=== PATIENT | male | born 1940 | race Caucasian/White ===

== ENCOUNTER → 2016-12-27 | Outpatient (CLI) | payer MEDICARE ==
--- NOTE | 2016-12-27 10:00 | CT ---
EXAMINATION TYPE: CT ChestAbdPelvis wo con DATE OF EXAM: 12/27/2016 9:11 AM COMPARISON: CT CAP January 18, 2012 HISTORY: f/u Renal CA, history of right-sided nephrectomy. CT DLP: 531.8 mGycm. Automated Exposure Control for Dose Reduction was Utilized. CONTRAST: CT scan of the thorax, abdomen and pelvis is performed without and with IV Contrast, patient injected with 0 mL of Omnipaque 350. Exam is performed with oral but without IV contrast. AMX erases my report if I edit above. FINDINGS: Within the limitations of a noncontrast study, the following observations are made. LUNGS: Mild underlying emphysematous change is present. There is linear scarring laterally in the lef t midlung. There is additional linear scarring medially in the right mid to lower lung anterior aspec t. No concerning new parenchymal nodule or mass is present bilaterally. No pleural effusion or pneumo thorax is seen. Tracheobronchial tree is patent. MEDIASTINUM: There are new enlarged thoracic lymph nodes. For reference superior mediastinal lymph n ode near brachiocephalic confluence measures 2.5 x 1.8 cm on axial image 10. For reference right para tracheal lymph node measures 3.9 x 2.8 cm on axial image 16. There is enlarged adjacent lymph nodes s een inferior medial and anterior to this. No cardiomegaly or pericardial effusion is seen. Three-vessel coronary artery calcification and/or c oronary stents is present. OTHER: No additional significant abnormality is seen. LIVER/GB: Cholecystectomy clips are redemonstrated PANCREAS: No significant abnormality is seen. SPLEEN: No significant abnormality is seen. ADRENALS: No significant abnormality is seen. Normal-appearing right adrenal gland remains present. KIDNEYS: Right kidney is now surgically absent. Previously visualized adenopathy is absent. In left kidney there is 4.8 x 3.1 cm oval low dense lesion with Hounsfield units averaging 9 mid pole level felt to reflect simple cyst slightly increased in size from prior study. Mild cortical thinnin g in left kidney is seen. No hydronephrosis is evident. There is minimal concentric wall thickening of the urinary bladder redemonstrated. BOWEL: Oral contrast reaches level of rectum. There is no suspicious small or large bowel dilatation seen. There is mild to moderate wall thickening involving the sigmoid colon most pronounced distally extending into the rectum, colitis at this level needs to BE considered. Incidental note is made of n ormal contrast-filled appendix. GENITAL ORGANS: Prostate gland is heterogeneous appearance and slightly enlarged in size bulging on b ladder base, clinical correlation for BPH is advised. Some central zone calcifications are noted. LYMPH NODES: No greater than 1cm abdominal or pelvic lymph nodes are appreciated. OSSEOUS STRUCTURES: There is spurring with disc space narrowing and sclerosis at L4-L5 level, posteri or spur disc complex is noted. There is moderate anterior spurring with sclerosis centered in the mid thoracic spine. OTHER: Moderate sized fat-containing inguinal hernias are present bilaterally. There is moderate to severe calcified atherosclerotic change of aorta and branch vessels. IMPRESSION: 1. New thoracic adenopathy worrisome for neoplastic recurrence. Further investigation with bronchosco py for sampling or PET CT is advised. 2. Possible mild distal colitis, consider infectious or inflammatory etiologies, clinical correlation advised.
== END | disposition home or self-care (01) ==
LOC: RADCTMAIN 07:56
PROVIDERS: ATTEND Internal Medicine Hematology & Oncology
DX: R59.0 Localized enlarged lymph nodes (principal); C64.9 Malignant neoplasm of unspecified kidney, except renal pelvis
CPT/HCPCS: 71250; 74176

== ENCOUNTER → 2017-04-26 | Outpatient (CLI) | payer MEDICARE ==
--- NOTE | 2017-04-26 08:53 | CT ---
EXAMINATION TYPE: CT ChestAbdPelvis wo con DATE OF EXAM: 04/26/2017 COMPARISON: Previous study dated 12/27/2016 HISTORY: Renal cell CA follow up CT DLP: 1555 mGycm Automated exposure control for dose reduction was used. TECHNIQUE: Helical acquisition through the abdomen and pelvis was obtained without oral or intravenou s contrast. The data was formatted in the axial, coronal and sagittal projections. FINDINGS: No pulmonary parenchymal lesions are seen. There is mild atelectasis within the apical post erior segment of the left upper lobe as well as the right middle lobe. Previous right paratracheal lymph node measured 2.9 x 2.7 cm now measures 4.9 x 3.5 cm. Additional pr etracheal lymph node or inferiorly previously measured 3.1 x 2.5 cm. Today it measures 4.5 x 3.8 cm. There is additional right paratracheal adenopathy which is similar in size to the previous examinatio n. There is no pleural or pericardial fluid. The heart is not enlarged. There is extensive coronary garcia ry calcification as well as other atheromatous calcification throughout the exam. Within the abdomen, the gallbladder is been removed. The liver and spleen appear normal. Both adrenal glands appear normal. There is been a previous right nephrectomy. The nephrectomy space appears clear disease. The low atte nuating lesion in the mid polar region of the left kidney appears slightly less apparent on the previ ous exam and today measures 4.2 cm. Previously this measured 4.8 cm. The pancreas is unremarkable. There is no significant retrocrural, iliac or inguinal adenopathy. The bladder is somewhat thick-walled with wall measuring 6.6 mm. This may be partially due to lack of distention. The prostate is mildly enlarged and calcified. There are scattered diverticula along the left side of the colon. There is no radiographic evidence o f diverticulitis. The appendix is not visualized. Small bowel loops are normal. There is no free fluid and no free air identified. There is degenerative disc disease and hypertrophic spondylosis within the spine. There is mild facet arthropathy. There is no bony destructive lesion. IMPRESSION: 1. WORSENING MEDIASTINAL ADENOPATHY. 2. PROBABLE LEFT RENAL CYST. 3. MILD CARDIOMEGALY. 4. EXTENSIVE VASCULAR CALCIFICATION INCLUDING THE CORONARY ARTERIES. 5. STATUS POST RIGHT NEPHRECTOMY. 6. MINIMAL, UNCOMPLICATED DIVERTICULOSIS OF THE LEFT SIDE OF THE COLON. 7. DEGENERATIVE CHANGES WITHIN THE SPINE.
== END | disposition home or self-care (01) ==
LOC: RADCTMAIN 08:11
PROVIDERS: ATTEND Internal Medicine Hematology & Oncology
DX: C64.1 Malignant neoplasm of right kidney, except renal pelvis (principal); K57.30 Diverticulosis of large intestine without perforation or abscess without bleeding; R59.0 Localized enlarged lymph nodes; I51.7 Cardiomegaly; I25.10 Atherosclerotic heart disease of native coronary artery without angina pectoris; Z90.5 Acquired absence of kidney
CPT/HCPCS: 71250; 74176

== ENCOUNTER → 2017-05-03 | Outpatient (CLI) | payer MEDICARE ==
[2017-05-03 09:25] LABS: Calcium 9.4 mg/dL (8.4-10.2); Potassium 4.8 mmol/L (3.5-5.1); Total Bilirubin 1.3 mg/dL (0.2-1.3); Total Protein 6.6 g/dL (6.3-8.2)
== END | disposition home or self-care (01) ==
LOC: LABWHC1 08:31
PROVIDERS: ATTEND Internal Medicine Interventional Cardiology
DX: E78.2 Mixed hyperlipidemia (principal)
CPT/HCPCS: 36415; 80053; 80061

== ENCOUNTER 2017-06-05 18:03 | Emergency (ER) | payer MEDICARE ==
[2017-06-05] MEDS ORDERED: TAMSULOSIN 0.4 MG CAP.ER.24H PO STA (18:27)
[2017-06-05 19:09] LABS: Appearance,Urine Clear (Clear); Bacteria,Urine Rare /hpf; Bilirubin,Urine Negative (Negative); Glucose,Urine (UA) Trace (Negative); Ketones,Urine Negative (Negative); Leukocyte Esterase,Urine Negative (Negative); Nitrite,Urine Negative (Negative); Particle Count 951; Protein,Urine Negative (Negative); RBC,Urine <1 /hpf (0-5); Specific Gravity,Urine 1.004 (1.001-1.035); UA Billing (MACRO vs. MICRO) MICRO; Urobilinogen,Urine <2.0 mg/dL (<2.0); WBC,Urine <1 /hpf (0-5)
--- NOTE | 2017-06-05 19:22 | ED ---
Male Urogenital HPI - General Chief complaint: Urogenital Stated complaint: Cannot Urinate Time Seen by Provider: 06/05/17 18:18 Source: patient, RN notes reviewed Mode of arrival: ambulatory Limitations: no limitations - History of Present Illness Initial comments: 76-year-old male presents emergency Department chief complaint unable to urinate. Patient states that he had EGD this morning. Patient states ever since he has not been able to urinate. He states that he only gets a few drops out. Patient states she's had this problem in the past in which he required a Mesa and some medications. Patient states does not take anything for BPH at this time. Denies any dysuria hematuria. Patient states he feels that he has to go and his lower abdomen feels distended. - Related Data Home Medications Medication Instructions Recorded Confirmed Atenolol [Tenormin] 25 mg PO BID 06/23/15 06/23/15 Lisinopril [Prinivil] 20 mg PO BID 06/23/15 06/23/15 Simvastatin [Zocor] 10 mg PO HS 06/23/15 06/23/15 Previous Rx's Medication Instructions Recorded Aspirin 325 mg PO DAILY tab 06/25/15 glipiZIDE [Glucotrol XL] 5 mg PO DAILY #30 tab 06/25/15 levETIRAcetam [Keppra] 500 mg PO Q12HR #60 tab 06/25/15 Tamsulosin [Flomax] 0.4 mg PO DAILY #7 cap 06/05/17 Allergies Allergy/AdvReac Type Severity Reaction Status Date / Time No Known Allergies Allergy Verified 06/05/17 19:15 Review of Systems ROS Statement: Those systems with pertinent positive or pertinent negative responses have been documented in the HPI. ROS Other: All systems not noted in ROS Statement are negative. Past Medical History Past Medical History: Chest Pain / Angina, Diabetes Mellitus, Hypertension Additional Past Medical History / Comment(s): 06/23/[address] [facility] ER via EMS with having confusion, some apasia and diaphoreis at home in the night. He also rolled out of bed. His spouse called EMS and in transport symptoms resolved. Other HX: Post hernia repair-pt states he had brain bleed and was transferred from [facility] to [facility]-he had to learn to perform all ADLs again-also had seizures for a short time after the brain bleed but none since 2012. 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-tx with R nephrectomy and chemo in 2012 at [facility], Stage II chronic kidney disease, hypertensive cardiovascular disease with LVH, diabetic neuropathy with low back and L leg pain, BPH, Last Myocardial Infarction Date:: 1999 History of Any Multi-Drug Resistant Organisms: None Reported Past Surgical History: Cholecystectomy, Coronary Bypass/CABG, Heart Catheterization With Stent Additional Past Surgical History / Comment(s): Kidney removed Past Anesthesia/Blood Transfusion Reactions: No Reported Reaction Date of Last Stent Placement:: 2005 Past Psychological History: No Psychological Hx Reported Smoking Status: Former smoker Past Alcohol Use History: None Reported Past Drug Use History: None Reported - Past Family History Father Family Medical History: Asthma, Coronary Artery Disease (CAD) Mother Family Medical History: CVA/TIA Additional Family Medical History / Comment(s): CVA X 2 General Exam Limitations: no limitations General appearance: alert, in no apparent distress Neck exam: Present: normal inspection, full ROM. Absent: tenderness, meningismus, lymphadenopathy Respiratory exam: Present: normal lung sounds bilaterally. Absent: respiratory distress, wheezes, rales, rhonchi, stridor Cardiovascular Exam: Present: regular rate, normal rhythm, normal heart sounds. Absent: systolic murmur, diastolic murmur, rubs, gallop, clicks GI/Abdominal exam: Present: soft, tenderness (Suprapubic), normal bowel sounds. Absent: distended, guarding, rebound, rigid Back exam: Absent: CVA tenderness (R), CVA tenderness (L) Neurological exam: Present: alert, oriented X3, CN II-XII intact Skin exam: Present: warm, dry, intact, normal color. Absent: rash Course Vital Signs 06/05/17 18:12 Temperature 97.7 F Pulse Rate 68 Respiratory 18 Rate Blood Pressure 177/79 O2 Sat by Pulse 97 Oximetry Medical Decision Making - Medical Decision Making 76-year-old male presents for urinary retention. Patient had a Mesa placed with no complications. Patient states that he feels relieved several 100 mLs urine on the Mesa bag. Urinalysis is a any signs of infection. Patient be discharged on Flomax. - Lab Data Lab Results 06/05/17 Range/Units 18:45 Urine Color Light Yellow Urine Appearance Clear (Clear) Urine pH 5.0 (5.0-8.0) Ur Specific [place] 1.004 (1.001-1.035) Urine Protein Negative (Negative) Urine Glucose (UA) Trace H (Negative) Urine Ketones Negative (Negative) Urine Blood Trace H (Negative) Urine Nitrite Negative (Negative) Urine Bilirubin Negative (Negative) Urine Urobilinogen <2.0 (<2.0) mg/dL Ur Leukocyte Esterase Negative (Negative) Urine RBC <1 (0-5) /hpf Urine WBC <1 (0-5) /hpf Urine Bacteria Rare H (None) /hpf Disposition Clinical Impression: Urinary retention Disposition: HOME SELF-CARE Condition: Stable Instructions: Urinary Retention in Men (ED) Additional Instructions: Please return to the Emergency Department if symptoms worsen or any other concerns. Prescriptions: Tamsulosin [Flomax] 0.4 mg PO DAILY #7 cap Referrals: Romie Dominguez MD [Primary Care Provider] - 1-2 days Time of Disposition: 19:22
[2017-06-05 19:37] VITALS: BP 148/79; PULSE 77; RESP 14; TEMP 97.3
== END 2017-06-05 19:37 | disposition home or self-care (01) ==
LOC: EC 18:03
DX: R33.9 Retention of urine, unspecified (principal); R14.0 Abdominal distension (gaseous); I10 Essential (primary) hypertension; Z87.891 Personal history of nicotine dependence; Z79.899 Other long term (current) drug therapy; Z86.79 Personal history of other diseases of the circulatory system
CPT/HCPCS: 51702; 81001; 87086; 99283

== ENCOUNTER 2017-06-09 22:24 | Observation (INO) | payer MEDICARE ==
--- NOTE | 2017-06-09 22:38 | ED ---
Chest Pain HPI - General Stated Complaint: chest & abdominal pain Time Seen by Provider: 06/09/17 22:36 Source: patient Limitations: no limitations - History of Present Illness Initial Comments: This patient is a 76-year-old man who presents to be evaluated for substernal and epigastric chest pain that has been going on since Sunday. The patient had a procedure on that day at another hospital, that he believes involves an endoscopy and possibly he was also intubated. He states that they were looking for cancer. The patient was seen here that day for urinary retention. He states that he has not had problem with this since being seen here, but that the chest and epigastric pain continued. He is not able to characterize it stating that it is just pain. It is constant, severe, and he has not found anything that makes the pain get better or worse. He denies having associated symptoms. MD Complaint: chest pain -: days(s) Pain Location: substernal, epigastric Pain Radiation: none Severity: severe Quality: other (It's just pain") Consistency: constant Improves With: nothing Worsens With: nothing Context: other (Recent procedure) Treatments Prior to Arrival: none - Related Data Home Medications Medication Instructions Recorded Confirmed Atenolol [Tenormin] 25 mg PO BID 06/23/15 06/23/15 Lisinopril [Prinivil] 20 mg PO BID 06/23/15 06/23/15 Simvastatin [Zocor] 10 mg PO HS 06/23/15 06/23/15 Previous Rx's Medication Instructions Recorded Aspirin 325 mg PO DAILY tab 06/25/15 glipiZIDE [Glucotrol XL] 5 mg PO DAILY #30 tab 06/25/15 levETIRAcetam [Keppra] 500 mg PO Q12HR #60 tab 06/25/15 Tamsulosin [Flomax] 0.4 mg PO DAILY #7 cap 06/05/17 Allergies Allergy/AdvReac Type Severity Reaction Status Date / Time No Known Allergies Allergy Verified 06/09/17 22:44 Review of Systems ROS Statement: Those systems with pertinent positive or pertinent negative responses have been documented in the HPI. ROS Other: All systems not noted in ROS Statement are negative. Constitutional: Denies: fever, chills, weakness Respiratory: Denies: cough, dyspnea, wheezes, hemoptysis Cardiovascular: Reports: as per HPI, chest pain. Denies: palpitations, orthopnea, edema, syncope Gastrointestinal: Reports: abdominal pain. Denies: nausea, vomiting, diarrhea, constipation, melena, hematochezia Genitourinary: Denies: dysuria, frequency, hematuria, discharge Musculoskeletal: Denies: back pain Skin: Denies: rash Neurological: Denies: headache, weakness, numbness EKG Findings - EKG Results: EKG: interpreted by EB INMAN, sinus rhythm (Rate 83 bpm), normal axis, normal QRS, normal ST/T, no acute changes - VA, Pacemaker, Normal: Normal tracing: normal tracing Past Medical History Past Medical History: Chest Pain / Angina, Diabetes Mellitus, Hypertension Additional Past Medical History / Comment(s): 06/23/15 Pt presented to [facility] ER via EMS with having confusion, some apasia and diaphoreis at home in the night. He also rolled out of bed. His spouse called EMS and in transport symptoms resolved. Other HX: Post hernia repair-pt states he had brain bleed and was transferred from [facility] to [facility]-he had to learn to perform all ADLs again-also had seizures for a short time after the brain bleed but none since 2012. 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-tx with R nephrectomy and chemo in 2011 at [facility], Stage II chronic kidney disease, hypertensive cardiovascular disease with LVH, diabetic neuropathy with low back and L leg pain, BPH, Last Myocardial Infarction Date:: 1999 History of Any Multi-Drug Resistant Organisms: None Reported Past Surgical History: Cholecystectomy, Coronary Bypass/CABG, Heart Catheterization With Stent Additional Past Surgical History / Comment(s): Kidney removed Past Anesthesia/Blood Transfusion Reactions: No Reported Reaction Date of Last Stent Placement:: 2005 Past Psychological History: No Psychological Hx Reported Smoking Status: Former smoker Past Alcohol Use History: None Reported Past Drug Use History: None Reported - Past Family History Father Family Medical History: Asthma, Coronary Artery Disease (CAD) Mother Family Medical History: CVA/TIA Additional Family Medical History / Comment(s): CVA X 2 General Exam General appearance: alert, in no apparent distress Head exam: Present: atraumatic, normocephalic Eye exam: Present: normal appearance. Absent: scleral icterus, conjunctival injection Neck exam: Present: normal inspection Respiratory exam: Present: normal lung sounds bilaterally. Absent: respiratory distress, wheezes, rales, rhonchi, stridor, chest wall tenderness Cardiovascular Exam: Present: regular rate, normal rhythm, normal heart sounds. Absent: systolic murmur, diastolic murmur, rubs, gallop GI/Abdominal exam: Present: soft. Absent: distended, tenderness, guarding, rebound, mass, pulsatile mass, hernia Extremities exam: Present: normal inspection, normal capillary refill. Absent: pedal edema, calf tenderness Back exam: Present: normal inspection. Absent: CVA tenderness (R), CVA tenderness (L) Neurological exam: Present: alert Skin exam: Present: warm, dry, intact, normal color. Absent: rash Course Vital Signs 06/09/17 06/09/17 06/09/17 22:45 22:48 23:31 Temperature 101.3 F H 100.9 F H Pulse Rate 87 78 Pulse Rate [ 78 Lost And Found Clerk ] Respiratory 18 18 Rate Blood Pressure 168/78 152/75 O2 Sat by Pulse 97 97 Oximetry - Reevaluation(s) Reevaluation #1: 06/10/17 00:47 Patient does have a minimally elevated d-dimer, which is negative by the age adjusted criteria. He does have risk factor and suspected malignancy however. Patient is therefore given dose of Lovenox. The patient's renal function is slightly elevated, and he'll be given fluid bolus, have the labs rechecked and hopefully be able to go for the CT of the chest to rule out PE. If his labs do not improve patient may require VQ scan in the a.m. Chest Pain MDM - MDM This patient is 76-year-old man presenting with atypical chest pain. Suspect that his pain is related to esophagitis or gastritis pain, but he was not able to recall recent stress test. We'll admit to observation for serial cardiac enzymes and telemetry monitoring. Disposition Referrals: Romie Dominguez MD [Primary Care Provider] - 1-2 days
[2017-06-09] MEDS ORDERED: MAG HYDROX/AL HYDROX/SIMETH 30 ML, HYOSCYAMINE ELIXIR 10 ML, CIMETIDINE HCL 300 MG, LID... PO STA ×4 (22:43)
[2017-06-09] MEDS ORDERED: ACETAMINOPHEN TAB 325 MG TAB PO STA ×2 (22:55→22:56)
[2017-06-09 23:03] LABS: Basophils % (A) 0 %; CH 30.5; CHCM 34.2; Eosinophils # (A) 0.2 k/uL (0-0.7); Eosinophils % (A) 2 %; HCT 38.4 % (39.0-53.0); HDW 2.94; HGB 13.5 gm/dL (13.0-17.5); Luc # (Auto) 0.15; Luc % (Auto) 2; Lymphocytes % (A) 12 %; MCH 31.4 pg (25.0-35.0); MCHC 35.1 g/dL (31.0-37.0); MCV 89.4 fL (80.0-100.0); Mean Platelet Volume 7.2; Monocytes # (A) 0.6 k/uL (0-1.0); Monocytes % (A) 7 %; Neutrophils # (A) 6.5 k/uL (1.3-7.7); Neutrophils % (A) 78 %; RBC 4.29 m/uL (4.30-5.90); RDW 13.6 % (11.5-15.5); WBC 8.4 k/uL (3.8-10.6); WBC (Perox) 8.32
[2017-06-09 23:11] LABS: Magnesium 1.8 mg/dL (1.6-2.3); Potassium 4.4 mmol/L (3.5-5.1); Total Bilirubin 1.9 mg/dL (0.2-1.3); Total Protein 5.8 g/dL (6.3-8.2)
[2017-06-09 23:23] LABS: INR 1.1 (<1.2)
[2017-06-09 23:24] LABS: Partial Thromboplastin Time 24.9 sec (22.0-30.0); Prothrombin Time 11.1 sec (9.0-12.0)
[2017-06-09 23:45] LABS: Appearance,Urine Clear (Clear); Bilirubin,Urine Negative (Negative); Glucose,Urine (UA) Negative (Negative); Ketones,Urine Negative (Negative); Leukocyte Esterase,Urine Negative (Negative); Nitrite,Urine Negative (Negative); Protein,Urine Negative (Negative); Specific Gravity,Urine 1.007 (1.001-1.035); UA Billing (MACRO vs. MICRO) CHEM; Urobilinogen,Urine <2.0 mg/dL (<2.0)
--- NOTE | 2017-06-09 23:47 | XR ---
EXAM: PA and lateral views of the chest INDICATION: 76 year-old male chest pain. COMPARISON: Chest x-ray 06/24/2015. FINDINGS: PA and lateral views of chest show interval development of a 7. 1 x 5.0 cm right paratracheal mass lesion, which is indeterminate. Aorta is tortuous. Heart is normal size. No pleural effusion, pneumothorax, or focal consolidation. Central pulmonary vasculature is within normal limits. Degenerative changes of the spine and both acromioclavicular joints. Upper abdominal surgical clips are present. IMPRESSION: 1. Interval development of a 7.1 x 5.0 cm right paratracheal mass lesion. This is indeterminate. Advise CT chest with contrast material to further evaluate. 2. Otherwise, no acute chest process.
[2017-06-10] MEDS ORDERED: NITROGLYCERIN SL TABS 0.4 MG TAB SUBLINGUAL PRN (00:42)
[2017-06-10] MEDS ORDERED: MORPHINE SULFATE 2 MG/ML SYRINGE IVP PRN (00:42)
[2017-06-10] MEDS ORDERED: SODIUM CHLORIDE 0.9% 1,000 ML IV SCH (00:45)
[2017-06-10] MEDS ORDERED: ENOXAPARIN 80 MG/0.8 ML SYRINGE SQ STA (00:47)
[2017-06-10] MEDS ORDERED: SODIUM CHLORIDE 0.9% 1,000 ML IV ONE (00:47)
[2017-06-10] MEDS: FAMOTIDINE 20 MG/2 ML VIAL IV SCH ×2 (01:32→09:54)
[2017-06-10 01:43] VITALS: BMI 27.3
[2017-06-10 02:06] VITALS: PULSE 74
[2017-06-10 05:20] LABS: Creatine Kinase 105 U/L (55-170)
[2017-06-10 05:33] LABS: Creatine Kinase MB 1.7 ng/mL (0.0-2.4); Troponin I <0.012 ng/mL (0.000-0.034)
[2017-06-10 07:04] LABS: Glucose,Whole Blood 162 mg/dL (75-99)
[2017-06-10] MEDS ORDERED: ATENOLOL 50 MG TAB PO SCH (09:15)
[2017-06-10] MEDS ORDERED: LISINOPRIL 20 MG TAB PO SCH (09:15)
[2017-06-10] MEDS ORDERED: ASPIRIN 81 MG CHEW PO SCH (09:15)
[2017-06-10] MEDS ORDERED: levETIRAcetam 500 MG TAB PO SCH (09:15)
[2017-06-10 11:28] LABS: Creatine Kinase 91 U/L (55-170)
[2017-06-10 11:41] LABS: Creatine Kinase MB 1.5 ng/mL (0.0-2.4); Troponin I <0.012 ng/mL (0.000-0.034)
--- NOTE | 2017-06-10 11:41 | CONS ---
This is a 76 year old with gentleman with history of CAD, type 2 diabetes, hypertension and history of intracranial bleed. This gentleman had a history of stenting performed in the past in 2005 and has recently as about a month ago , he had a Lexiscan stress test performed thru the office by Dr. Gardner who he sees. Stress test revealed good myocardial perfusion and function without ischemia. He has a history of lymphoma for which he had surgery and during the operation, the lymphoma was very close to the kidney and nephrectomy was eventually performed. Following the procedure, he had intracranial bleed that was treated conservatively. He now has significant sized lymphadenopathy in the mediastinum. About a week ago, he had a mediastinoscopy performed at [facility]. The details are unavailable. Biopsies apparently were taken per patient. However, he came in with chest pain mostly in the retrosternal area. The chest x-ray does not reveal any significant abnormalities. His troponins are normal. Quality of pain seems atypical. He is resting comfortably and symptoms have also resolved. I am recommending that given his normal stress test and lack of any EKG changes of significance or troponin elevation, he can be discharged and followed up as an outpatient with Dr. Gardner. More importantly, I have advised the patient to follow up with surgeon at [facility] for his lymphadenopathy. He sees Dr. Bowen in the outpatient setting. He is asymptomatic at the time of my evaluation. Past medical history: 1. CAD with history of PCI performed more than ten years ago with negative stress test one month ago. 2. Type 2 diabetes. 3. hypertension. 4. Hypercholesterolemia. Medications at home include: 1. Keppra. 2. Glucotrol. 3. Simvastatin. 4. Lisinopril. 5. Atenolol. 6. Aspirin. On physical examination, blood pressure is 144/70. Pulse rate is 70 per minute , regular. HEENT unremarkable. Fundus was not examined by me. Neck is supple. No JVD. I do not hear a carotid bruit. No thyromegaly. Heart exam reveals S1 , S2 heard normally without rub, murmur or gallop. Lungs are clear. Abdomen soft and nontender. Lower extremities revealed normal pulses. No edema. Central nervous system is normal. EKG revealed sinus mechanism. No acute changes. IMPRESSION: 1. Atypical chest pain. 2. Mediastinal lymphadenopathy. 3. Stable coronary artery disease with negative stress test one month ago. 4. Hypertension. 5. Hyperlipidemia. 6. Type 2 diabetes mellitus. RECOMMENDATIONS: I am recommending that we should continue his home medications. He can be discharged today and follow up with his primary physician. I have advised him to see Dr. Gardner in two weeks. I gave him the stress test results and he was placed. Discussed my thoughts in detail with the patient. Thank you very much for the consult. WENDY
[2017-06-10 11:46] VITALS: BP 159/81; RESP 18; TEMP 98.1
[2017-06-10 12:02] LABS: Glucose,Whole Blood 167 mg/dL (75-99)
--- NOTE | 2017-06-10 16:09 | P.HPIM ---
History of Present Illness H&P Date: 06/10/17 Chief Complaint: Chest pain Patient left the hospital AGAINST MEDICAL ADVICE even before I had a chance to see the patient. Past Medical History Past Medical History: Chest Pain / Angina, Diabetes Mellitus, Hyperlipidemia, Hypertension, Myocardial Infarction ([place]), Pneumonia, Prostate Disorder, Seizure Disorder Additional Past Medical History / Comment(s): 06/06/17 [facility] [place] looking for cancer. 06/23/15 Pt presented to [facility] ER via EMS with having confusion, some apasia and diaphoreis at home in the night. He also rolled out of bed. His spouse called EMS and in transport symptoms resolved. Other HX: Post hernia repair-pt states he had brain bleed and was transferred from [facility] to [facility]- he had to learn to perform all ADLs again-also had seizures for a short time after the brain bleed but none since 2011. 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-tx with R nephrectomy and chemo in 2011 at [facility], Stage II chronic kidney disease, hypertensive cardiovascular disease with LVH, diabetic neuropathy with low back and L leg pain, BPH, Last Myocardial Infarction Date:: 1999 History of Any Multi-Drug Resistant Organisms: None Reported Past Surgical History: Cholecystectomy, Coronary Bypass/CABG, Heart Catheterization With Stent, Hernia Repair Additional Past Surgical History / Comment(s): Kidney removed Past Anesthesia/Blood Transfusion Reactions: No Reported Reaction Date of Last Stent Placement:: 2005 Past Psychological History: No Psychological Hx Reported Additional Psychological History / Comment(s): Pt resides with his spouse. He is normally independent. He uses no assistive devices or home care. He drives a car. Smoking Status: Former smoker Past Alcohol Use History: None Reported Past Drug Use History: None Reported - Past Family History Father Family Medical History: Asthma, Coronary Artery Disease (CAD) Mother Family Medical History: CVA/TIA Additional Family Medical History / Comment(s): CVA X 2 Medications and Allergies Home Medications Medication Instructions Recorded Confirmed Type Atenolol [Tenormin] 50 mg PO BID 06/23/15 06/10/17 History Lisinopril [Prinivil] 20 mg PO BID 06/23/15 06/10/17 History Simvastatin [Zocor] 10 mg PO HS 07/29/15 07/16/17 History Aspirin 81 mg PO DAILY 06/10/17 06/10/17 History Allergies Allergy/AdvReac Type Severity Reaction Status Date / Time No Known Allergies Allergy Verified 06/10/17 07:19 Physical Exam Vitals: Vital Signs Temp Pulse Pulse Resp BP BP Pulse Ox 06/10/17 11:45 98.1 F 18 159/81 96 06/10/17 07:38 98.8 F 17 174/85 95 06/10/17 04:00 18 06/10/17 02:05 98.6 F 74 18 144/77 97 06/10/17 01:41 18 06/10/17 01:02 100.6 F H 88 18 144/68 97 06/09/17 23:31 100.9 F H 78 18 152/75 97 06/09/17 22:48 78 06/09/17 22:45 101.3 F H 87 18 168/78 97 Intake and Output 06/10/17 06/10/17 06/10/17 06:59 14:59 22:59 Intake Total 480 Balance 480 Intake: Oral 480 Other: Voiding Method Toilet # Voids 1 Weight 81.6 kg Results CBC & Chem 7: 06/09/17 22:45 06/09/17 22:45 Labs: Abnormal Lab Results - Last 24 Hours (Table) 06/09/17 06/09/17 06/09/17 Range/Units 22:45 22:45 22:45 RBC 4.29 L (4.30-5.90) m/uL Hct 38.4 L (39.0-53.0) % D-Dimer 0.74 H (<0.60) mg/L FEU Sodium 132 L (137-145) mmol/L Carbon Dioxide 21 L (22-30) mmol/L BUN 22 H (9-20) mg/dL Creatinine 1.60 H (0.66-1.25) mg/dL Glucose 188 H (74-99) mg/dL POC Glucose (mg/dL) (75-99) mg/dL Total Bilirubin 1.9 H (0.2-1.3) mg/dL Total Protein 5.8 L (6.3-8.2) g/dL Albumin 3.4 L (3.5-5.0) g/dL 06/10/17 06/10/17 Range/Units 07:00 11:59 RBC (4.30-5.90) m/uL Hct (39.0-53.0) % D-Dimer (<0.60) mg/L FEU Sodium (137-145) mmol/L Carbon Dioxide (22-30) mmol/L BUN (9-20) mg/dL Creatinine (0.66-1.25) mg/dL Glucose (74-99) mg/dL POC Glucose (mg/dL) 162 H 167 H (75-99) mg/dL Total Bilirubin (0.2-1.3) mg/dL Total Protein (6.3-8.2) g/dL Albumin (3.5-5.0) g/dL Microbiology - Last 24 Hours (Table) 06/09/17 23:25 Urine Culture - Preliminary Urine,Voided Thrombosis Risk Factor Assmnt - Choose All That Apply Each Risk Factor Represents 3 Points: Age 75 years or older Thrombosis Risk Factor Assessment Total Risk Factor Score: 3 Thrombosis Risk Factor Assessment Level: Moderate Risk
[2017-06-10] MEDS ORDERED: ATORVASTATIN 10 MG TAB PO SCH (21:00)
== END 2017-06-10 13:27 | disposition left against medical advice (07) ==
LOC: EC 22:24 → 3OBS 06-10 00:42
PROVIDERS: ADMIT Hospitalist; ATTEND Hospitalist
DX: R07.9 Chest pain, unspecified (principal); R59.0 Localized enlarged lymph nodes; I25.10 Atherosclerotic heart disease of native coronary artery without angina pectoris; I13.10 Hypertensive heart and chronic kidney disease without heart failure, with stage 1 through stage 4 chronic kidney disease, or unspecified chronic kidney disease; E78.5 Hyperlipidemia, unspecified; E11.40 Type 2 diabetes mellitus with diabetic neuropathy, unspecified; E11.22 Type 2 diabetes mellitus with diabetic chronic kidney disease; R10.13 Epigastric pain; N18.2 Chronic kidney disease, stage 2 (mild); E78.00 Pure hypercholesterolemia, unspecified; Z85.528 Personal history of other malignant neoplasm of kidney; N42.9 Disorder of prostate, unspecified; N40.1 Benign prostatic hyperplasia with lower urinary tract symptoms; R33.8 Other retention of urine; G40.909 Epilepsy, unspecified, not intractable, without status epilepticus; I25.2 Old myocardial infarction; Z79.82 Long term (current) use of aspirin; Z79.899 Other long term (current) drug therapy; Z79.84 Long term (current) use of oral hypoglycemic drugs; Z87.891 Personal history of nicotine dependence; Z95.1 Presence of aortocoronary bypass graft; Z95.5 Presence of coronary angioplasty implant and graft; Z82.49 Family history of ischemic heart disease and other diseases of the circulatory system; Z82.5 Family history of asthma and other chronic lower respiratory diseases; Z85.72 Personal history of non-Hodgkin lymphomas; Z90.5 Acquired absence of kidney; Z90.49 Acquired absence of other specified parts of digestive tract; Z92.21 Personal history of antineoplastic chemotherapy
CPT/HCPCS: 99285 ×2; 96372; 36415; 93005; 85379; 80053; 82150; 82550; 82553; 83605; 83690; 83735; 84484 ×2; 85025; 85610; 85730; 81003; 87040; 87086; 71020; G0378; J1650

== ENCOUNTER → 2017-10-11 | Outpatient (CLI) | payer MEDICARE ==
[2017-10-11 17:50] LABS: Calcium 9.7 mg/dL (8.4-10.2); Potassium 4.5 mmol/L (3.5-5.1)
== END | disposition home or self-care (01) ==
LOC: LABWHC1 16:44
PROVIDERS: ATTEND Internal Medicine
DX: I10 Essential (primary) hypertension (principal)
CPT/HCPCS: 36415; 80048

== ENCOUNTER → 2017-12-06 | Outpatient (CLI) | payer MEDICARE ==
[2017-12-06 11:07] LABS: Anisocytosis Slight; HCT 43.2 % (39.0-53.0); HGB 14.2 gm/dL (13.0-17.5); MCH 28.4 pg (25.0-35.0); MCHC 32.9 g/dL (31.0-37.0); MCV 86.3 fL (80.0-100.0); Mean Platelet Volume 7.2; Platelet Count 130 k/uL (150-450); Poikilocytosis Slight; RDW 17.8 % (11.5-15.5); WBC 4.7 k/uL (3.8-10.6)
[2017-12-06 11:24] LABS: Albumin 3.3 g/dL (3.5-5.0); Potassium 5.3 mmol/L (3.5-5.1); Total Bilirubin 1.1 mg/dL (0.2-1.3)
[2017-12-06 19:06] LABS: Hemoglobin A1C 7.6 % (4.0-6.0)
== END | disposition home or self-care (01) ==
LOC: LABWHC1 10:38
PROVIDERS: ATTEND Internal Medicine
DX: E11.9 Type 2 diabetes mellitus without complications (principal)
CPT/HCPCS: 36415; 80053; 83036; 85027

== ENCOUNTER 2018-02-20 14:04 | Emergency (ER) | payer MEDICARE, OTHER ==
[2018-02-20 14:37] VITALS: RESP 18
[2018-02-20 15:30] LABS: Anisocytosis Slight; Basophils % (A) 1 %; Eosinophils # (A) 0.1 k/uL (0-0.7); Eosinophils % (A) 3 %; HCT 43.7 % (39.0-53.0); HGB 14.3 gm/dL (13.0-17.5); Lymphocytes # (A) 1.6 k/uL (1.0-4.8); Lymphocytes % (A) 28 %; MCH 30.1 pg (25.0-35.0); MCHC 32.8 g/dL (31.0-37.0); MCV 91.9 fL (80.0-100.0); Mean Platelet Volume 7.1; Monocytes # (A) 0.3 k/uL (0-1.0); Monocytes % (A) 6 %; Neutrophils # (A) 3.4 k/uL (1.3-7.7); Neutrophils % (A) 61 %; Platelet Count 263 k/uL (150-450); Poikilocytosis Slight; RBC 4.76 m/uL (4.30-5.90); RDW 17.7 % (11.5-15.5); WBC 5.6 k/uL (3.8-10.6)
[2018-02-20 15:46] LABS: Albumin 3.7 g/dL (3.5-5.0); Calcium 9.5 mg/dL (8.4-10.2); Potassium 4.7 mmol/L (3.5-5.1); Total Protein 6.5 g/dL (6.3-8.2)
[2018-02-20 15:52] LABS: Prothrombin Time 9.6 sec (9.0-12.0)
[2018-02-20 15:53] LABS: Partial Thromboplastin Time 22.3 sec (22.0-30.0)
--- NOTE | 2018-02-20 15:56 | ED ---
General Adult HPI - General Chief complaint: GI Bleed Stated complaint: Rectal Bleed Time Seen by Provider: 02/20/18 15:31 Source: patient, RN notes reviewed Mode of arrival: ambulatory Limitations: no limitations - History of Present Illness Initial comments: Patient 77-year-old male presents to the emergency room today with a chief complaint of bloody bowel movement. Patient states that he's had some abdominal discomfort today and the lower abdomen both the right and left sides. Patient states that he's had 3 bowel movements and he seen some bright red blood on the toilet paper and in the toilet itself. Patient does admit that he is currently being treated for kidney cancer. Patient currently on cabometyx. Patient states medication that he was advised may cause some intestinal bleeding. Patient states his medication for the last 3 months. Patient denies any other complaints or symptoms currently. - Related Data Home Medications Medication Instructions Recorded Confirmed Atenolol [Tenormin] 50 mg PO BID 06/23/15 02/20/18 Simvastatin [Zocor] 10 mg PO HS 06/23/15 02/20/18 Aspirin EC [Ecotrin Low Dose] 81 mg PO DAILY 02/20/18 02/20/18 Cabozantinib S-Malate [Cabometyx] 40 mg PO DAILY 02/20/18 02/20/18 Losartan [Cozaar] 50 mg PO BID 02/20/18 02/20/18 cloNIDine HCL [Catapres] 0.1 mg PO BID 02/20/18 02/20/18 glipiZIDE [Glucotrol] 10 mg PO AC-BID 02/20/18 02/20/18 levETIRAcetam [Keppra] 250 mg PO Q12HR 02/20/18 02/20/18 Allergies Allergy/AdvReac Type Severity Reaction Status Date / Time No Known Allergies Allergy Verified 02/20/18 15:43 Review of Systems ROS Statement: Those systems with pertinent positive or pertinent negative responses have been documented in the HPI. ROS Other: All systems not noted in ROS Statement are negative. Past Medical History Past Medical History: Chest Pain / Angina, Diabetes Mellitus, Hypertension Additional Past Medical History / Comment(s): 06/23/15 Pt presented to [facility] ER via EMS with having confusion, some apasia and diaphoreis at home in the night. He also rolled out of bed. His spouse called EMS and in transport symptoms resolved. Other HX: Post hernia repair-pt states he had brain bleed and was transferred from [facility] to [facility]-he had to learn to perform all ADLs again-also had seizures for a short time after the brain bleed but none since 2012. 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-tx with R nephrectomy and chemo in 2012 at [facility], Stage II chronic kidney disease, hypertensive cardiovascular disease with LVH, diabetic neuropathy with low back and L leg pain, BPH, Last Myocardial Infarction Date:: 1999 History of Any Multi-Drug Resistant Organisms: None Reported Past Surgical History: Cholecystectomy, Coronary Bypass/CABG, Heart Catheterization With Stent Additional Past Surgical History / Comment(s): Kidney removed Past Anesthesia/Blood Transfusion Reactions: No Reported Reaction Date of Last Stent Placement:: 2005 Past Psychological History: No Psychological Hx Reported Smoking Status: Former smoker Past Alcohol Use History: None Reported Past Drug Use History: None Reported - Past Family History Father Family Medical History: Asthma, Coronary Artery Disease (CAD) Mother Family Medical History: CVA/TIA Additional Family Medical History / Comment(s): CVA X 2 General Exam - General Exam Comments Initial Comments: General: The patient is awake and alert, in no distress, and does not appear acutely ill. Eye: Pupils are equal, round and reactive to light, extra-ocular movements are intact. No nystagmus. There is normal conjunctiva bilaterally. No signs of icterus. Ears, nose, mouth and throat: There are moist mucous membranes and no oral lesions. Neck: The neck is supple, there is no tenderness or JVD. Cardiovascular: There is a regular rate and rhythm. No murmur, rub or gallop is appreciated. Respiratory: Lungs are clear to auscultation, respirations are non-labored, breath sounds are equal. No wheezes, stridor, rales, or rhonchi. Gastrointestinal: Admits also on palpation. Patient does have mild tenderness both left and right lower quadrants. No rebound tenderness. No guarding. No CVA tenderness. Musculoskeletal: Normal ROM, no tenderness. Strength 5/5. Sensation intact. Pulses equal bilaterally 2+. Neurological: A&O x 3. CN II-XII intact, There are no obvious motor or sensory deficits. Coordination appears grossly intact. Speech is normal. Skin: Skin is warm and dry and no rashes or lesions are noted. Psychiatric: Cooperative, appropriate mood & affect, normal judgment. : Patient has normal rectal tone. Limitations: no limitations Course Vital Signs 02/20/18 14:34 Temperature 98.2 F Pulse Rate 63 Respiratory 18 Rate Blood Pressure 185/81 O2 Sat by Pulse 98 Oximetry EKG Findings - EKG Comments: EKG Findings:: EKG performed at 1508: Shows a normal sinus rhythm at 60 beats per minute. NM interval 174. QRS 98. QT/QTc is 414/414. No acute ST changes. Medical Decision Making - Medical Decision Making Patient reexamined at this time shows no signs of distress. Patient did have positive Hemoccult here in the emergency room. Patient has had 3 episodes of bloody bowel movement. He denies any dizziness or lightheadedness. Patient vitals are stable. He is not on any blood thinners. Was discussed with patient about admission. States he does not want to be admitted. States prefers to follow up outpatient. Was discussed with patient that he should return to emergency room if any symptoms increase worsen. At this time patient will be discharged home to follow up outpatient. Advised return he states understanding and is in agreement. - Lab Data Result diagrams: 02/20/18 15:04 02/20/18 15:04 Lab Results 02/20/18 02/20/18 02/20/18 Range/Units 15:04 15:04 15:04 WBC 5.6 (3.8-10.6) k/uL RBC 4.76 (4.30-5.90) m/uL Hgb 14.3 (13.0-17.5) gm/dL Hct 43.7 (39.0-53.0) % MCV 91.9 (80.0-100.0) fL MCH 30.1 (25.0-35.0) pg MCHC 32.8 (31.0-37.0) g/dL RDW 17.7 H (11.5-15.5) % Plt Count 263 (150-450) k/uL Neutrophils % 61 % Lymphocytes % 28 % Monocytes % 6 % Eosinophils % 3 % Basophils % 1 % Neutrophils # 3.4 (1.3-7.7) k/uL Lymphocytes # 1.6 (1.0-4.8) k/uL Monocytes # 0.3 (0-1.0) k/uL Eosinophils # 0.1 (0-0.7) k/uL Basophils # 0.0 (0-0.2) k/uL Poikilocytosis Slight Anisocytosis Slight PT 9.6 (9.0-12.0) sec INR 1.0 (<1.2) APTT 22.3 (22.0-30.0) sec Sodium 138 (137-145) mmol/L Potassium 4.7 (3.5-5.1) mmol/L Chloride 102 (98-107) mmol/L Carbon Dioxide 28 (22-30) mmol/L Anion Gap 8 mmol/L BUN 19 (9-20) mg/dL Creatinine 1.33 H (0.66-1.25) mg/dL Est GFR (CKD-EPI)AfAm 60 (>60 ml/min/1.73 sqM) Est GFR (CKD-EPI)NonAf 52 (>60 ml/min/1.73 sqM) Glucose 115 H (74-99) mg/dL Calcium 9.5 (8.4-10.2) mg/dL Total Bilirubin 1.0 (0.2-1.3) mg/dL AST 31 (17-59) U/L ALT 41 (21-72) U/L Alkaline Phosphatase 94 (38-126) U/L Total Protein 6.5 (6.3-8.2) g/dL Albumin 3.7 (3.5-5.0) g/dL Stool Occult Blood (Negative) Blood Type Blood Type Recheck Antibody Screen Spec Expiration Date 02/20/18 02/20/18 Range/Units 15:04 16:00 WBC (3.8-10.6) k/uL RBC (4.30-5.90) m/uL Hgb (13.0-17.5) gm/dL Hct (39.0-53.0) % MCV (80.0-100.0) fL MCH (25.0-35.0) pg MCHC (31.0-37.0) g/dL RDW (11.5-15.5) % Plt Count (150-450) k/uL Neutrophils % % Lymphocytes % % Monocytes % % Eosinophils % % Basophils % % Neutrophils # (1.3-7.7) k/uL Lymphocytes # (1.0-4.8) k/uL Monocytes # (0-1.0) k/uL Eosinophils # (0-0.7) k/uL Basophils # (0-0.2) k/uL Poikilocytosis Anisocytosis PT (9.0-12.0) sec INR (<1.2) APTT (22.0-30.0) sec Sodium (137-145) mmol/L Potassium (3.5-5.1) mmol/L Chloride (98-107) mmol/L Carbon Dioxide (22-30) mmol/L Anion Gap mmol/L BUN (9-20) mg/dL Creatinine (0.66-1.25) mg/dL Est GFR (CKD-EPI)AfAm (>60 ml/min/1.73 sqM) Est GFR (CKD-EPI)NonAf (>60 ml/min/1.73 sqM) Glucose (74-99) mg/dL Calcium (8.4-10.2) mg/dL Total Bilirubin (0.2-1.3) mg/dL AST (17-59) U/L ALT (21-72) U/L Alkaline Phosphatase (38-126) U/L Total Protein (6.3-8.2) g/dL Albumin (3.5-5.0) g/dL Stool Occult Blood Positive (Negative) Blood Type O Positive Blood Type Recheck No Antibody Screen NEGATIVE Spec Expiration Date 02/23/20182303 Disposition Clinical Impression: Blood in stool Disposition: HOME SELF-CARE Condition: Good Instructions: Gastrointestinal Bleeding (ED) Additional Instructions: Please follow-up the family doctor in the next 1-2 days as discussed. Please return here to emergency room if any symptoms increase worsen or for any other concerns. Referrals: Romie Dominguez MD [Primary Care Provider] - 1-2 days Time of Disposition: 16:31
--- NOTE | 2018-02-20 16:04 | XR ---
EXAMINATION TYPE: XR KUB DATE OF EXAM: 02/20/2018 COMPARISON: NONE HISTORY: Pain TECHNIQUE: Single supine KUB image of the abdomen is obtained FINDINGS: Small bowel demonstrates no evidence for dilatation or air fluid levels. Gas and fecal material is seen in non-distended colon. No convincing evidence for pneumoperitoneum. No unusual calcifications. The lung bases are clear. The osseous structures are intact. IMPRESSION: 1. Overall nonobstructive bowel gas pattern.
[2018-02-20 16:46] VITALS: BP 162/78; PULSE 61; TEMP 97.1
== END 2018-02-20 16:46 | disposition home or self-care (01) ==
LOC: EC 14:04
DX: K92.1 Melena (principal); I13.10 Hypertensive heart and chronic kidney disease without heart failure, with stage 1 through stage 4 chronic kidney disease, or unspecified chronic kidney disease; N18.2 Chronic kidney disease, stage 2 (mild); E11.22 Type 2 diabetes mellitus with diabetic chronic kidney disease; I25.2 Old myocardial infarction; Z90.5 Acquired absence of kidney; Z85.528 Personal history of other malignant neoplasm of kidney; Z90.49 Acquired absence of other specified parts of digestive tract; Z95.1 Presence of aortocoronary bypass graft; Z87.891 Personal history of nicotine dependence; Z79.82 Long term (current) use of aspirin; Z79.84 Long term (current) use of oral hypoglycemic drugs; Z79.899 Other long term (current) drug therapy
CPT/HCPCS: 36415; 74018; 80053; 82272; 85025; 85610; 85730; 86850; 86900; 86901; 93005; 99285

== ENCOUNTER 2018-10-19 06:02 | Emergency (ER) | payer MEDICARE, OTHER ==
--- NOTE | 2018-10-19 06:38 | ED ---
Abdominal Pain HPI - General Source: patient, family Mode of arrival: ambulatory Limitations: no limitations <Quinn Acevedo - Last Filed: 10/19/18 06:37> <Gabino Bellamy - Last Filed: 10/19/18 09:28> - General Chief Complaint: Abdominal Pain Stated Complaint: Abdominal Pain Time Seen by Provider: 10/19/18 06:11 - History of Present Illness Initial Comments: This is a 78-year-old male with a history of renal cancer post nephrectomy who presents emergency department for lower abdominal discomfort. He states that the symptoms of been there for the last 3 days and have gradually worsened. He states he is having normal bowel movements. No diarrhea, nausea, or vomiting. No fevers or chills. He states the pain is more or less constant. He denies any difficulty with urination. No dysuria or hematuria. He denies any other acute complaints. (Quinn Acevedo) - Related Data Home Medications Medication Instructions Recorded Confirmed Atenolol [Tenormin] 50 mg PO BID 06/23/15 10/19/18 Simvastatin [Zocor] 10 mg PO HS 06/23/15 10/19/18 Aspirin EC [Ecotrin Low Dose] 81 mg PO DAILY 02/20/18 10/19/18 Cabozantinib S-Malate [Cabometyx] 40 mg PO DAILY 02/20/18 10/19/18 Losartan [Cozaar] 50 mg PO BID 02/20/18 10/19/18 cloNIDine HCL [Catapres] 0.1 mg PO BID 02/20/18 10/19/18 glipiZIDE [Glucotrol] 10 mg PO AC-BID 02/20/18 10/19/18 levETIRAcetam [Keppra] 250 mg PO Q12HR 02/20/18 10/19/18 Allergies Allergy/AdvReac Type Severity Reaction Status Date / Time No Known Allergies Allergy Verified 10/19/18 06:13 Review of Systems ROS Other: All systems not noted in ROS Statement are negative. <Quinn Acevedo - Last Filed: 10/19/18 06:37> ROS Other: All systems not noted in ROS Statement are negative. <Gabino Bellamy - Last Filed: 10/19/18 09:28> ROS Statement: Those systems with pertinent positive or pertinent negative responses have been documented in the HPI. Past Medical History Past Medical History: Chest Pain / Angina, Diabetes Mellitus, Hypertension Additional Past Medical History / Comment(s): 06/23/15 Pt presented to [facility] ER via EMS with having confusion, some apasia and diaphoreis at home in the night. He also rolled out of bed. His spouse called EMS and in transport symptoms resolved. Other HX: Post hernia repair-pt states he had brain bleed and was transferred from [facility] to [facility]-he had to learn to perform all ADLs again-also had seizures for a short time after the brain bleed but none since 2012. 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-tx with R nephrectomy and chemo in 2011 at [facility], Stage II chronic kidney disease, hypertensive cardiovascular disease with LVH, diabetic neuropathy with low back and L leg pain, BPH, Last Myocardial Infarction Date:: 1999 History of Any Multi-Drug Resistant Organisms: None Reported Past Surgical History: Cholecystectomy, Coronary Bypass/CABG, Heart Catheterization With Stent Additional Past Surgical History / Comment(s): Kidney removed Past Anesthesia/Blood Transfusion Reactions: No Reported Reaction Date of Last Stent Placement:: 2005 Past Psychological History: No Psychological Hx Reported Smoking Status: Former smoker Past Alcohol Use History: None Reported Past Drug Use History: None Reported - Past Family History Father Family Medical History: Asthma, Coronary Artery Disease (CAD) Mother Family Medical History: CVA/TIA Additional Family Medical History / Comment(s): CVA X 2 <Quinn Acevedo - Last Filed: 10/19/18 06:37> General Exam Limitations: no limitations <Quinn Acevedo - Last Filed: 10/19/18 06:37> General appearance: alert, in no apparent distress Head exam: Present: atraumatic, normocephalic, normal inspection Eye exam: Present: normal appearance, PERRL, EOMI. Absent: scleral icterus, conjunctival injection, periorbital swelling ENT exam: Present: normal exam, mucous membranes moist Neck exam: Present: normal inspection. Absent: tenderness, meningismus, lymphadenopathy Respiratory exam: Present: normal lung sounds bilaterally. Absent: respiratory distress, wheezes, rales, rhonchi, stridor Cardiovascular Exam: Present: regular rate, normal rhythm, normal heart sounds. Absent: systolic murmur, diastolic murmur, rubs, gallop, clicks GI/Abdominal exam: Present: soft, normal bowel sounds. Absent: distended, tenderness, guarding, rebound, rigid Extremities exam: Present: normal inspection, full ROM, normal capillary refill. Absent: tenderness, pedal edema, joint swelling, calf tenderness Back exam: Present: normal inspection Neurological exam: Present: alert, oriented X3, CN II-XII intact Psychiatric exam: Present: normal affect, normal mood Skin exam: Present: warm, dry, intact, normal color. Absent: rash <Gabino Bellamy - Last Filed: 10/19/18 09:28> - General Exam Comments Initial Comments: Constitutional: Awake alert Appears comfortable Head: Normocephalic atraumatic Eyes: no conjunctival injection No scleral icterus EOMI Neck: No JVD Supple Heart: Regular rate rhythm normal S1-S2 no murmurs Lungs: Clear to auscultation bilaterally No wheezing No rales Abdomen: Soft nondistended mild tenderness to palpation in the periumbilical area Extremities: Non edematous DP pulses intact Radial pulses intact Neuro: A&Ox3 No focal neurologic deficits Psych: Appropriate mood and affect (Quinn Acevedo) Course <Quinn Acevedo - Last Filed: 10/19/18 06:37> <Gabino Bellamy - Last Filed: 10/19/18 09:28> Vital Signs 10/19/18 10/19/18 10/19/18 06:11 06:20 07:40 Temperature 98.4 F Pulse Rate 72 69 65 Respiratory 20 18 16 Rate Blood Pressure 199/98 178/100 165/85 O2 Sat by Pulse 98 98 96 Oximetry 10/19/18 09:25 Temperature 97.8 F Pulse Rate Respiratory Rate Blood Pressure O2 Sat by Pulse Oximetry - Reevaluation(s) Reevaluation #1: 10/19/18 09:25 patient reEval with adequate pain conrtol spoke with family at length, patient is feeling better, admits to taking himself off CA meds 3 months ago, informed of CT results and lab work, questions answered, patient feeling good for discharge (Gabino Bellamy) Medical Decision Making <Quinn Acevedo - Last Filed: 10/19/18 06:37> - Lab Data Result diagrams: 10/19/18 06:19 10/19/18 06:19 - Radiology Data Radiology results: report reviewed (CT abd pelvis is negative for acute diseaes , patient does have CA unchanged in size, probable mets), image reviewed <Gabino Bellamy - Last Filed: 10/19/18 09:28> - Medical Decision Making 78 male to the ED co abd pain, CT abd pelvis shows unchanged CA, pain likely related to proximal mets and lymphadenopathy, pain is controlled, Labwork is normal, patient can be discharged home. (Gabino Bellamy) - Lab Data Lab Results 10/19/18 10/19/18 10/19/18 Range/Units 06:19 06:19 06:19 WBC 8.2 (3.8-10.6) k/uL RBC 5.25 (4.30-5.90) m/uL Hgb 15.6 (13.0-17.5) gm/dL Hct 46.2 (39.0-53.0) % MCV 88.0 (80.0-100.0) fL MCH 29.7 (25.0-35.0) pg MCHC 33.8 (31.0-37.0) g/dL RDW 14.4 (11.5-15.5) % Plt Count 176 (150-450) k/uL Neutrophils % 71 % Lymphocytes % 16 % Monocytes % 7 % Eosinophils % 3 % Basophils % 0 % Neutrophils # 5.9 (1.3-7.7) k/uL Lymphocytes # 1.3 (1.0-4.8) k/uL Monocytes # 0.6 (0-1.0) k/uL Eosinophils # 0.3 (0-0.7) k/uL Basophils # 0.0 (0-0.2) k/uL Sodium 137 (137-145) mmol/L Potassium 5.0 (3.5-5.1) mmol/L Chloride 102 (98-107) mmol/L Carbon Dioxide 24 (22-30) mmol/L Anion Gap 11 mmol/L BUN 22 H (9-20) mg/dL Creatinine 1.64 H (0.66-1.25) mg/dL Est GFR (CKD-EPI)AfAm 46 (>60 ml/min/1.73 sqM) Est GFR (CKD-EPI)NonAf 40 (>60 ml/min/1.73 sqM) Glucose 161 H (74-99) mg/dL Plasma Lactic Acid [place] 1.2 (0.7-2.0) mmol/L Calcium 9.7 (8.4-10.2) mg/dL Magnesium 2.0 (1.6-2.3) mg/dL Total Bilirubin 2.3 H (0.2-1.3) mg/dL AST 34 (17-59) U/L ALT 39 (21-72) U/L Alkaline Phosphatase 99 (38-126) U/L Total Protein 7.0 (6.3-8.2) g/dL Albumin 3.9 (3.5-5.0) g/dL Lipase 204 (23-300) U/L Urine Color Urine Appearance (Clear) Urine pH (5.0-8.0) Ur Specific [place] (1.001-1.035) Urine Protein (Negative) Urine Glucose (UA) (Negative) Urine Ketones (Negative) Urine Blood (Negative) Urine Nitrite (Negative) Urine Bilirubin (Negative) Urine Urobilinogen (<2.0) mg/dL Ur Leukocyte Esterase (Negative) Urine RBC (0-5) /hpf Urine WBC (0-5) /hpf Ur Squamous Epith Cells (0-4) /hpf Urine Mucus (None) /hpf 10/19/18 Range/Units 06:48 WBC (3.8-10.6) k/uL RBC (4.30-5.90) m/uL Hgb (13.0-17.5) gm/dL Hct (39.0-53.0) % MCV (80.0-100.0) fL MCH (25.0-35.0) pg MCHC (31.0-37.0) g/dL RDW (11.5-15.5) % Plt Count (150-450) k/uL Neutrophils % % Lymphocytes % % Monocytes % % Eosinophils % % Basophils % % Neutrophils # (1.3-7.7) k/uL Lymphocytes # (1.0-4.8) k/uL Monocytes # (0-1.0) k/uL Eosinophils # (0-0.7) k/uL Basophils # (0-0.2) k/uL Sodium (137-145) mmol/L Potassium (3.5-5.1) mmol/L Chloride (98-107) mmol/L Carbon Dioxide (22-30) mmol/L Anion Gap mmol/L BUN (9-20) mg/dL Creatinine (0.66-1.25) mg/dL Est GFR (CKD-EPI)AfAm (>60 ml/min/1.73 sqM) Est GFR (CKD-EPI)NonAf (>60 ml/min/1.73 sqM) Glucose (74-99) mg/dL Plasma Lactic Acid [place] (0.7-2.0) mmol/L Calcium (8.4-10.2) mg/dL Magnesium (1.6-2.3) mg/dL Total Bilirubin (0.2-1.3) mg/dL AST (17-59) U/L ALT (21-72) U/L Alkaline Phosphatase (38-126) U/L Total Protein (6.3-8.2) g/dL Albumin (3.5-5.0) g/dL Lipase (23-300) U/L Urine Color Yellow Urine Appearance Clear (Clear) Urine pH 5.5 (5.0-8.0) Ur Specific [place] 1.017 (1.001-1.035) Urine Protein 2+ H (Negative) Urine Glucose (UA) Negative (Negative) Urine Ketones Negative (Negative) Urine Blood Trace H (Negative) Urine Nitrite Negative (Negative) Urine Bilirubin Negative (Negative) Urine Urobilinogen <2.0 (<2.0) mg/dL Ur Leukocyte Esterase Negative (Negative) Urine RBC 1 (0-5) /hpf Urine WBC 1 (0-5) /hpf Ur Squamous Epith Cells <1 (0-4) /hpf Urine Mucus Rare H (None) /hpf Disposition <Quinn Acevedo - Last Filed: 10/19/18 06:37> Is patient prescribed a controlled substance at d/c from ED?: No <Gabino Bellamy - Last Filed: 10/19/18 09:28> Clinical Impression: Abdominal pain Disposition: HOME SELF-CARE Condition: Good Instructions: Abdominal Pain (ED) Referrals: Romie Dominguez MD [Primary Care Provider] - 1-2 days
[2018-10-19 06:43] LABS: Basophils % (A) 0 %; Eosinophils # (A) 0.3 k/uL (0-0.7); Eosinophils % (A) 3 %; HCT 46.2 % (39.0-53.0); HGB 15.6 gm/dL (13.0-17.5); Lymphocytes # (A) 1.3 k/uL (1.0-4.8); Lymphocytes % (A) 16 %; MCH 29.7 pg (25.0-35.0); MCHC 33.8 g/dL (31.0-37.0); Mean Platelet Volume 6.9; Monocytes # (A) 0.6 k/uL (0-1.0); Monocytes % (A) 7 %; Neutrophils # (A) 5.9 k/uL (1.3-7.7); Neutrophils % (A) 71 %; Platelet Count 176 k/uL (150-450); RBC 5.25 m/uL (4.30-5.90); RDW 14.4 % (11.5-15.5); WBC 8.2 k/uL (3.8-10.6)
[2018-10-19] MEDS ORDERED: HYDROcodone/APAP 5-325MG 1 EACH TAB PO STA (06:43)
[2018-10-19 06:56] LABS: Albumin 3.9 g/dL (3.5-5.0); Calcium 9.7 mg/dL (8.4-10.2); Total Bilirubin 2.3 mg/dL (0.2-1.3)
[2018-10-19 07:28] LABS: Appearance,Urine Clear (Clear); Bilirubin,Urine Negative (Negative); Blood,Urine Trace (Negative); Color,Urine Yellow; Glucose,Urine (UA) Negative (Negative); Ketones,Urine Negative (Negative); Leukocyte Esterase,Urine Negative (Negative); Mucus,Urine Rare /hpf; Nitrite,Urine Negative (Negative); PH, Urine 5.5 (5.0-8.0); Protein,Urine 2+ (Negative); RBC,Urine 1 /hpf (0-5); Specific Gravity,Urine 1.017 (1.001-1.035); Squamous Epithelial Cell,Urine <1 /hpf (0-4); Urobilinogen,Urine <2.0 mg/dL (<2.0)
[2018-10-19 07:41] VITALS: RESP 16
--- NOTE | 2018-10-19 08:03 | CT ---
EXAM: CT Abdomen and Pelvis Without Intravenous Contrast CLINICAL HISTORY: Periumbilical Pain, H/o Kidney CA TECHNIQUE: Axial computed tomography images of the abdomen and pelvis without intravenous contrast. CTDI is 9 mGy and DLP is 475 mGy-cm. This CT exam was performed using one or more of the following dose reduction techniques: automated exposure control, adjustment of the mA and/or kV according to patient size, and/or use of iterative reconstruction technique. Coronal and sagittal reconstructions are performed COMPARISON: 04/26/2017 FINDINGS: Limitations: Lack of contrast limits the sensitivity of this exam. Lung bases: Unremarkable. No mass. No consolidation. ABDOMEN: Liver: Unremarkable. Gallbladder and bile ducts: Cholecystectomy clips. No ductal dilation. Pancreas: Unremarkable. No ductal dilation. Spleen: Unremarkable. No splenomegaly. Adrenals: Unremarkable. No mass. Kidneys and ureters: Left renal cysts. Largest seen exophytic measures about 5.7 x 4.3 x 3.7 cm. Right nephrectomy clips. Stomach and bowel: Unremarkable. No obstruction. No mucosal thickening. PELVIS: Appendix: Normal. Bladder: Unremarkable. No stones. Reproductive: Unremarkable as visualized. ABDOMEN and PELVIS: Intraperitoneal space: Unremarkable. No free air. No significant fluid collection. Bones/joints: Osteopenia. Moderate degenerative changes. Soft tissues: Small fat-containing bilateral inguinal hernias. Vasculature: Small amount of atherosclerotic calcifications. No abdominal aortic aneurysm. Lymph nodes: oval-shaped lesion measuring about 2.1 x 2.7 x 2 cm between duodenum and right side of aorta, similar in size compared to prior study, surrounded by small amount of new mesenteric stranding, suggest metastasis versus enlarged lymph node. This lesion compresses on IVC, likely limits the flow, evidence by narrowing of IVC superiorly from this location, best seen on series 202 image 52. IMPRESSION: oval-shaped lesion measuring about 2.1 x 2.7 x 2 cm between duodenum and right side of aorta, similar in size compared to prior study, surrounded by small amount of new mesenteric stranding, suggest metastasis versus enlarged lymph node. This lesion compresses on IVC, likely limits its flow
[2018-10-19] MEDS ORDERED: ACET/COD 300 MG/30 MG STARTER PACK 6 TAB BTL PO STA (09:14)
[2018-10-19 09:32] VITALS: BP 158/108; PULSE 78; TEMP 97.9
== END 2018-10-19 09:31 | disposition home or self-care (01) ==
LOC: EC 06:02
DX: R10.30 Lower abdominal pain, unspecified (principal); I13.10 Hypertensive heart and chronic kidney disease without heart failure, with stage 1 through stage 4 chronic kidney disease, or unspecified chronic kidney disease; N18.2 Chronic kidney disease, stage 2 (mild); E11.22 Type 2 diabetes mellitus with diabetic chronic kidney disease; E11.40 Type 2 diabetes mellitus with diabetic neuropathy, unspecified; Z87.891 Personal history of nicotine dependence; Z79.82 Long term (current) use of aspirin; Z79.84 Long term (current) use of oral hypoglycemic drugs; Z79.899 Other long term (current) drug therapy; Z85.528 Personal history of other malignant neoplasm of kidney; Z90.5 Acquired absence of kidney; Z92.21 Personal history of antineoplastic chemotherapy; Z95.1 Presence of aortocoronary bypass graft; Z90.49 Acquired absence of other specified parts of digestive tract; Z86.69 Personal history of other diseases of the nervous system and sense organs
CPT/HCPCS: 36415; 74176; 80053; 81001; 83605; 83690; 83735; 85025; 99284

== ENCOUNTER 2018-10-19 16:49 | Emergency (ER) | payer MEDICARE, OTHER ==
[2018-10-19 16:59] VITALS: RESP 18
[2018-10-19] MEDS ORDERED: HYDROmorphone 1 MG/ML 1 ML SYRINGE IVP STA (17:25)
[2018-10-19] MEDS ORDERED: ONDANSETRON 4 MG/2 ML VIAL IVP STA (17:25)
[2018-10-19] MEDS ORDERED: HYDROcodone/APAP 5-325MG 1 EACH TAB PO STA (18:02)
--- NOTE | 2018-10-19 18:46 | ED ---
Recheck HPI - General Chief Complaint: Recheck/Abnormal Lab/Rx Stated Complaint: back/abd pain Time Seen by Provider: 10/19/18 17:01 Source: patient Mode of arrival: wheelchair - History of Present Illness Initial Comments: 78-year-old male patient presents to the emergency department today for complaints of increased abdominal and back pain. Patient was seen and evaluated for this earlier today and it was felt his pain was related to metastatic cancer. Patient does have primary kidney cancer with metastasis to the abdomen. He did have CT abdomen and pelvis earlier which did show a lesion near his duodenum. Patient was discharged home with pain medication. Patient did take the medication however his pain seemed to worsen after eating. He is now reporting the pain at a 10 out of 10 on the pain scale. States the pain as an intense aching cramping type pain. States he was nauseated with this but did not vomit. Denies any constipation or diarrhea. Denies any fevers or chills with this. Patient denies any recent rash, shortness breath, chest pain, numbness, tingling, dizziness, weakness, hematuria, dysuria, urinary urgency, urinary frequency, headache, visual changes, or any other complaints. - Related Data Home Medications Medication Instructions Recorded Confirmed Atenolol [Tenormin] 50 mg PO BID 06/23/15 10/19/18 Simvastatin [Zocor] 10 mg PO HS 06/23/15 10/19/18 Aspirin EC [Ecotrin Low Dose] 81 mg PO DAILY 02/20/18 10/19/18 Cabozantinib S-Malate [Cabometyx] 40 mg PO DAILY 02/20/18 10/19/18 Losartan [Cozaar] 50 mg PO BID 02/20/18 10/19/18 cloNIDine HCL [Catapres] 0.1 mg PO BID 02/20/18 10/19/18 glipiZIDE [Glucotrol] 10 mg PO AC-BID 02/20/18 10/19/18 levETIRAcetam [Keppra] 250 mg PO Q12HR 02/20/18 10/19/18 Previous Rx's Medication Instructions Recorded Hydrocodone/Acetaminophen [[place] 1 tab PO Q4H PRN 3 Days #18 tab 10/19/18 10-325] Allergies Allergy/AdvReac Type Severity Reaction Status Date / Time No Known Allergies Allergy Verified 10/19/18 16:59 Review of Systems ROS Statement: Those systems with pertinent positive or pertinent negative responses have been documented in the HPI. ROS Other: All systems not noted in ROS Statement are negative. Past Medical History Past Medical History: Chest Pain / Angina, Diabetes Mellitus, Hypertension Additional Past Medical History / Comment(s): 06/23/15 Pt presented to [facility] ER via EMS with having confusion, some apasia and diaphoreis at home in the night. He also rolled out of bed. His spouse called EMS and in transport symptoms resolved. Other HX: Post hernia repair-pt states he had brain bleed and was transferred from [facility] to [facility]-he had to learn to perform all ADLs again-also had seizures for a short time after the brain bleed but none since 2011. 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-tx with R nephrectomy and chemo in 2011 at [facility] in [place], Stage II chronic kidney disease, hypertensive cardiovascular disease with LVH, diabetic neuropathy with low back and L leg pain, BPH, Last Myocardial Infarction Date:: 1999 History of Any Multi-Drug Resistant Organisms: None Reported Past Surgical History: Cholecystectomy, Coronary Bypass/CABG, Heart Catheterization With Stent Additional Past Surgical History / Comment(s): Kidney removed Past Anesthesia/Blood Transfusion Reactions: No Reported Reaction Date of Last Stent Placement:: 2005 Past Psychological History: No Psychological Hx Reported Smoking Status: Former smoker Past Alcohol Use History: None Reported Past Drug Use History: None Reported - Past Family History Father Family Medical History: Asthma, Coronary Artery Disease (CAD) Mother Family Medical History: CVA/TIA Additional Family Medical History / Comment(s): CVA X 2 General Exam General appearance: alert, in no apparent distress, other (This is a well- developed, well-nourished adult male patient in no acute distress. Vital signs upon presentation are temperature 98.1F, pulse 67, respirations 18, blood pressure 179/102, pulse ox 96% on room air.) Eye exam: Present: normal appearance, PERRL, EOMI. Absent: scleral icterus, conjunctival injection, periorbital swelling Respiratory exam: Present: normal lung sounds bilaterally. Absent: respiratory distress, wheezes, rales, rhonchi, stridor Cardiovascular Exam: Present: regular rate, normal rhythm, normal heart sounds. Absent: systolic murmur, diastolic murmur, rubs, gallop, clicks GI/Abdominal exam: Present: soft, tenderness (Mild generalized tenderness to the abdomen), normal bowel sounds. Absent: distended, guarding, rebound, rigid Neurological exam: Present: alert, oriented X3, CN II-XII intact Psychiatric exam: Present: normal affect, normal mood Skin exam: Present: warm, dry, intact, normal color. Absent: rash Course Vital Signs 10/19/18 16:55 Temperature 98.1 F Pulse Rate 67 Respiratory 18 Rate Blood Pressure 179/102 O2 Sat by Pulse 96 Oximetry Medical Decision Making - Medical Decision Making 78-year-old male patient percents to the emergency department today for evaluation of increased abdominal wound back pain. I did review computed tomography scan, labs, and plan for patient's visit earlier in the day. There are no acute findings however it was felt that his pain is related to metastatic cancer. Patient was given Tylenol 3 which she did take however did not help. Here in the department did check a lactic acid to rule out mesenteric ischemia. This was within normal range. Also gave patient 2 [place] tablets here in the department. Upon reevaluation patient does report that he is feeling better and wishes to be discharged home. He'll be given a prescription for [place]. Did have a long discussion regarding use of these medications and he was instructed to take only half a tablet and use the other half only if necessary. He does plan on making an appointment with his oncologist on Sunday. Return parameters were discussed in detail. He verbalizes understanding and agrees with this plan. - Lab Data Lab Results 10/19/18 Range/Units 17:40 Plasma Lactic Acid [place] 1.4 (0.7-2.0) mmol/L Disposition Clinical Impression: Abdominal pain Disposition: HOME SELF-CARE Condition: Good Instructions: Abdominal Pain (ED) Additional Instructions: Take 1/2-1 whole tab of the pain medicationevery 4-6 hours as needed. Follow up with your oncologist for recheck in 1-2 days. Return immediately for any new, worsening, or concerning symptoms. Prescriptions: Hydrocodone/Acetaminophen [[place] 10-325] 1 tab PO Q4H PRN 3 Days #18 tab PRN Reason: Pain Is patient prescribed a controlled substance at d/c from ED?: No Referrals: Romie Dominguez MD [Primary Care Provider] - 1-2 days Time of Disposition: 18:46
[2018-10-19 18:58] VITALS: BP 176/87; PULSE 63; TEMP 98.4
== END 2018-10-19 18:58 | disposition home or self-care (01) ==
LOC: EC 16:49
DX: R10.9 Unspecified abdominal pain (principal); M54.9 Dorsalgia, unspecified; R11.0 Nausea; C79.89 Secondary malignant neoplasm of other specified sites; I13.10 Hypertensive heart and chronic kidney disease without heart failure, with stage 1 through stage 4 chronic kidney disease, or unspecified chronic kidney disease; N18.2 Chronic kidney disease, stage 2 (mild); E11.22 Type 2 diabetes mellitus with diabetic chronic kidney disease; E11.40 Type 2 diabetes mellitus with diabetic neuropathy, unspecified; Z87.891 Personal history of nicotine dependence; Z79.82 Long term (current) use of aspirin; Z79.84 Long term (current) use of oral hypoglycemic drugs; Z79.899 Other long term (current) drug therapy; Z92.21 Personal history of antineoplastic chemotherapy; Z87.39 Personal history of other diseases of the musculoskeletal system and connective tissue; Z85.528 Personal history of other malignant neoplasm of kidney; Z90.5 Acquired absence of kidney; Z95.1 Presence of aortocoronary bypass graft; Z90.49 Acquired absence of other specified parts of digestive tract; Z53.8 Procedure and treatment not carried out for other reasons
CPT/HCPCS: 36415; 83605; 99284

== ENCOUNTER 2018-12-28 01:29 | Inpatient (IN) | payer OTHER, MEDICARE ==
--- NOTE | 2018-12-28 01:39 | ED ---
Chest Pain HPI - General Chief Complaint: Chest Pain Stated Complaint: Chest Pain Time Seen by Provider: 12/28/18 01:32 Source: EMS Mode of arrival: EMS Limitations: no limitations - History of Present Illness Initial Comments: This patient is 78-year-old man with history of previous [place], in 1998 and again in approximately 2003, who presents with left-sided chest pain and radiation to the shoulder. The patient states that the pain had come on while he was trying to sleep. He described as a aching or heavy pain, constant, severe. When the pain did not resolve he called EMS and they did administer nitroglycerin 2 which did relieve the discomfort. The patient denied any associated symptoms. He did not note any other exacerbating or relieving factors. MD Complaint: chest pain Onset/Timin -: hour(s) Onset: during rest Pain Location: left chest Pain Radiation: LUE Severity: severe Quality: heaviness Consistency: now resolved Improves With: nitroglycerin Worsens With: nothing Treatments Prior to Arrival: aspirin, nitroglycerin - Related Data Home Medications Medication Instructions Recorded Confirmed Atenolol [Tenormin] 50 mg PO BID 06/23/15 12/28/18 Simvastatin [Zocor] 10 mg PO HS 06/23/15 12/28/18 Aspirin EC [Ecotrin Low Dose] 81 mg PO DAILY 02/20/18 12/28/18 Cabozantinib S-Malate [Cabometyx] 40 mg PO DAILY 02/20/18 12/28/18 Losartan [Cozaar] 50 mg PO BID 02/20/18 12/28/18 cloNIDine HCL [Catapres] 0.1 mg PO BID 02/20/18 12/28/18 glipiZIDE [Glucotrol] 10 mg PO AC-BID 02/20/18 12/28/18 levETIRAcetam [Keppra] 250 mg PO Q12HR 02/20/18 12/28/18 Previous Rx's Medication Instructions Recorded Hydrocodone/Acetaminophen [[place] 1 tab PO Q4H PRN 3 Days #18 tab 10/19/18 10-325] Allergies Allergy/AdvReac Type Severity Reaction Status Date / Time No Known Allergies Allergy Verified 12/28/18 01:35 Review of Systems ROS Statement: Those systems with pertinent positive or pertinent negative responses have been documented in the HPI. ROS Other: All systems not noted in ROS Statement are negative. Constitutional: Denies: fever, chills Respiratory: Denies: cough, dyspnea Cardiovascular: Reports: as per HPI, chest pain. Denies: palpitations, orthopnea, edema, syncope Gastrointestinal: Denies: abdominal pain, nausea, vomiting Genitourinary: Denies: dysuria, hematuria Musculoskeletal: Denies: back pain Skin: Denies: rash Neurological: Denies: headache, weakness, numbness EKG Findings - EKG Results: EKG: interpreted by STORM, sinus rhythm (Rate 62 bpm), normal QRS, normal ST/T - [place]ocks, [place], Hypertrophy, ST Abn: QRS axis and voltage: left axis deviation (-30 to -90) Past Medical History Past Medical History: Chest Pain / Angina, Diabetes Mellitus, Hypertension Additional Past Medical History / Comment(s): 06/23/15 Pt presented to [facility] ER via EMS with having confusion, some apasia and diaphoreis at home in the night. He also rolled out of bed. His spouse called EMS and in transport symptoms resolved. Other HX: Post hernia repair-pt states he had brain bleed and was transferred from [facility] to [facility]-he had to learn to perform all ADLs again-also had seizures for a short time after the brain bleed but none since 2012. 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-tx with R nephrectomy and chemo in 2011 at [facility] in [place], Stage II chronic kidney disease, hypertensive cardiovascular disease with LVH, diabetic neuropathy with low back and L leg pain, BPH, Last Myocardial Infarction Date:: 1999 History of Any Multi-Drug Resistant Organisms: None Reported Past Surgical History: Cholecystectomy, Coronary Bypass/CABG, Heart Catheterization With Stent Additional Past Surgical History / Comment(s): Kidney removed Past Anesthesia/Blood Transfusion Reactions: No Reported Reaction Date of Last Stent Placement:: 2005 Past Psychological History: No Psychological Hx Reported Smoking Status: Former smoker Past Alcohol Use History: None Reported Past Drug Use History: None Reported - Past Family History Father Family Medical History: Asthma, Coronary Artery Disease (CAD) Mother Family Medical History: CVA/TIA Additional Family Medical History / Comment(s): CVA X 2 General Exam Limitations: no limitations General appearance: alert, in no apparent distress Head exam: Present: atraumatic, normocephalic Eye exam: Present: normal appearance. Absent: scleral icterus, conjunctival injection ENT exam: Present: normal oropharynx Neck exam: Present: normal inspection Respiratory exam: Present: normal lung sounds bilaterally. Absent: respiratory distress, wheezes, rales, rhonchi, stridor Cardiovascular Exam: Present: regular rate, normal rhythm, normal heart sounds. Absent: systolic murmur, diastolic murmur, rubs, gallop GI/Abdominal exam: Present: soft. Absent: distended, tenderness, guarding, rebound, rigid, mass Extremities exam: Present: normal inspection, normal capillary refill. Absent: pedal edema, calf tenderness Back exam: Present: normal inspection. Absent: CVA tenderness (R), CVA tenderness (L) Neurological exam: Present: alert Skin exam: Present: warm, dry, intact, normal color. Absent: rash Course Vital Signs 12/28/18 12/28/18 12/28/18 01:30 02:30 03:00 Temperature 98.2 F Pulse Rate 65 58 L 56 L Respiratory 20 12 19 Rate Blood Pressure 182/97 152/79 135/68 O2 Sat by Pulse 95 96 96 Oximetry 12/28/18 12/28/18 12/28/18 03:30 04:00 04:30 Temperature Pulse Rate 55 L 53 L 52 L Respiratory 14 17 21 Rate Blood Pressure 119/66 132/75 121/69 O2 Sat by Pulse 96 97 98 Oximetry 12/28/18 12/28/18 05:00 05:30 Temperature Pulse Rate 54 L 52 L Respiratory 14 19 Rate Blood Pressure 121/74 133/74 O2 Sat by Pulse 97 97 Oximetry Chest Pain MDM - MDM This patient is 78-year-old man with left-sided chest pain radiating to his arm that was relieved by nitroglycerin. His initial workup is negative. Patient be admitted for telemetry monitoring and serial cardiac enzymes. Disposition Clinical Impression: Chest pain Disposition: ADMITTED IP TO THIS HOSP Condition: Fair Is patient prescribed a controlled substance at d/c from ED?: No
[2018-12-28 01:51] LABS: Basophils # (A) 0.1 k/uL (0-0.2); Basophils % (A) 1 %; Eosinophils # (A) 0.4 k/uL (0-0.7); Eosinophils % (A) 6 %; HCT 42.2 % (39.0-53.0); HGB 13.8 gm/dL (13.0-17.5); Lymphocytes # (A) 1.6 k/uL (1.0-4.8); Lymphocytes % (A) 26 %; MCH 29.2 pg (25.0-35.0); MCHC 32.7 g/dL (31.0-37.0); MCV 89.2 fL (80.0-100.0); Mean Platelet Volume 6.5; Monocytes # (A) 0.5 k/uL (0-1.0); Monocytes % (A) 8 %; Neutrophils # (A) 3.5 k/uL (1.3-7.7); Neutrophils % (A) 57 %; Platelet Count 177 k/uL (150-450); RBC 4.73 m/uL (4.30-5.90); RDW 14.8 % (11.5-15.5); WBC 6.2 k/uL (3.8-10.6)
[2018-12-28 02:01] LABS: Albumin 3.4 g/dL (3.5-5.0); Calcium 8.8 mg/dL (8.4-10.2); Magnesium 1.8 mg/dL (1.6-2.3); Potassium 4.5 mmol/L (3.5-5.1)
[2018-12-28 02:02] LABS: Total Bilirubin 1.1 mg/dL (0.2-1.3)
[2018-12-28 02:03] LABS: INR 0.9 (<1.2); Partial Thromboplastin Time 23.6 sec (22.0-30.0); Prothrombin Time 10.1 sec (9.0-12.0)
[2018-12-28 02:05] LABS: Creatine Kinase 57 U/L (55-170)
[2018-12-28 02:06] LABS: D-Dimer 0.96 mg/L FEU (<0.60)
[2018-12-28 02:18] LABS: Creatine Kinase MB 1.4 ng/mL (0.0-2.4); Troponin I <0.012 ng/mL (0.000-0.034)
--- NOTE | 2018-12-28 02:22 | XR ---
EXAMINATION TYPE: XR chest 2V DATE OF EXAM: 12/28/2018 COMPARISON: 06/09/2017 HISTORY: Chest pain TECHNIQUE: Frontal and lateral views of the chest are obtained. FINDINGS: There is no heart failure nor confluent pneumonic infiltrate. There is slight widening of the right paratracheal stripe. There are chest leads. There is no pleural effusion. Bony thorax is in tact. IMPRESSION: There is decreased mediastinal density and adenopathy compared to old exam. No acute alverto g disease. No heart failure.
[2018-12-28] MEDS ORDERED: NITROGLYCERIN SL TABS 0.4 MG TAB SUBLINGUAL PRN (04:52)
[2018-12-28] MEDS ORDERED: HYDROcodone/APAP 10-325MG 1 EACH TAB PO PRN (04:54)
[2018-12-28] MEDS ORDERED: ENOXAPARIN 80 MG/0.8 ML SYRINGE SQ STA (05:54)
[2018-12-28 07:00] LABS: Glucose,Whole Blood 139 mg/dL (75-99)
--- NOTE | 2018-12-28 08:17 | NM ---
EXAMINATION TYPE: NM pul vent and perfusion DATE OF EXAM: 12/28/2018 COMPARISON: CXR from earlier today. HISTORY: Chest pain and shortness of breath. TECHNIQUE: Utilizing inhalation of 33.1 mCi Tc 99m DTPA aerosol and intravenous injection of 5.21 mC i of Tc 99m MAA, ventilation and perfusion images are acquired post injection in multiple projections . FINDINGS: Central clumping of particles on ventilation images is consistent with underlying COPD. There is no e vidence of mismatched defects. Small scattered matching defects are seen. IMPRESSION: Low scintigraphic evidence for pulmonary embolism
[2018-12-28] MEDS: CABOZANTINIB S MALATE 40 MG PO SCH (08:47)
[2018-12-28] MEDS: levETIRAcetam 250 MG TAB PO SCH ×2 (08:51→23:34)
[2018-12-28] MEDS: LOSARTAN 50 MG TAB PO SCH ×2 (08:52→22:19)
[2018-12-28] MEDS: cloNIDine HCL 0.1 MG TAB PO SCH ×2 (08:52→22:19)
[2018-12-28] MEDS: ATENOLOL 50 MG TAB PO SCH ×2 (08:52→22:20)
[2018-12-28] MEDS ORDERED: ASPIRIN 81 MG PO SCH (09:00)
[2018-12-28] MEDS: ISOSORBIDE MONONITRATE ER 30 MG TAB.ER.24H PO SCH (09:04)
[2018-12-28 09:28] LABS: Creatine Kinase MB 5.9 ng/mL (0.0-2.4)
[2018-12-28 09:42] LABS: Troponin I 0.558 ng/mL (0.000-0.034)
[2018-12-28] MEDS ORDERED: HEPARIN SODIUM,PORCINE 5,000 UNIT/ML 1 ML VIAL IV ONE (09:46)
[2018-12-28] MEDS ORDERED: HEPARIN SODIUM,PORCINE 5,000 UNIT/ML 1 ML VIAL IV PRN (09:46)
[2018-12-28] MEDS: glipiZIDE 10 MG TAB PO SCH ×2 (10:02→16:55)
[2018-12-28] MEDS: HEPARIN SOD,PORK IN 0.45% NACL 25,000 UNIT in 0.45% NACL 1 250ML.BAG IV SCH (10:03)
[2018-12-28] MEDS: SODIUM CHLORIDE 0.9% 1,000 ML IV SCH (10:03)
[2018-12-28 10:34] LABS: Basophils # (A) 0.1 k/uL (0-0.2); Basophils % (A) 1 %; Eosinophils # (A) 0.4 k/uL (0-0.7); Eosinophils % (A) 7 %; HGB 14.1 gm/dL (13.0-17.5); Lymphocytes # (A) 1.7 k/uL (1.0-4.8); Lymphocytes % (A) 29 %; MCH 28.8 pg (25.0-35.0); MCV 89.9 fL (80.0-100.0); Mean Platelet Volume 7.1; Monocytes # (A) 0.4 k/uL (0-1.0); Monocytes % (A) 8 %; Neutrophils # (A) 3.1 k/uL (1.3-7.7); Neutrophils % (A) 52 %; Platelet Count 179 k/uL (150-450); RBC 4.89 m/uL (4.30-5.90); RDW 14.9 % (11.5-15.5); WBC 5.9 k/uL (3.8-10.6)
[2018-12-28 11:43] LABS: Glucose,Whole Blood 213 mg/dL (75-99)
--- NOTE | 2018-12-28 12:14 | P.HPIM ---
History of Present Illness H&P Date: 12/28/18 Chief Complaint: Chest pain This is a 78-year-old male one of Dr. Gale patient's with past medical history of hypertension, diabetes, hyperlipidemia, renal cell carcinoma status post nephrectomy with chronic kidney disease, and previous [place] status post stenting in 1998 and 2003. Patient reports he was awoken from his sleep with left-sided chest pain that radiated into her shoulder down his arm. He reports pain was aching and heavy. Patient then proceeded to call EMS, he was provided with 2 nitroglycerin which did relieve the discomfort. Upon workup he had a negative troponin and d-dimer was elevated at 0.96, creatinine 1.85 BUN 31. VQ scan ordered and showed low significant evidence for pulmonary embolism. Chest x- ray did not show any acute lung disease or heart failure. This morning patient reports he has not had any recurrence of his chest pain, denies any shortness of breath, palpitations, nausea or vomiting. Cardiology is on consult, first troponin was negative, second troponin came back at 0.558, patient was started on heparin drip. Review of Systems Constitutional: Denies chills, Denies fever, Denies weakness Ears: deny: ear discharge, tinnitus Ears, nose, mouth and throat: Denies dysphagia, Denies epistaxis, Denies headache, Denies nasal congestion, Denies sinus pressure, Denies sore throat Cardiovascular: Denies chest pain, Denies dyspnea on exertion, Denies edema, Denies high blood pressure, Denies irregular heart beat, Denies orthopnea, Denies palpitations, Denies shortness of breath, Denies syncope Respiratory: Denies congestion, Denies cough, Denies dyspnea, Denies pain on inspiration, Denies wheezing Gastrointestinal: Denies constipation, Denies diarrhea, Denies dyspepsia, Denies heartburn, Denies nausea, Denies vomiting Genitourinary: Denies flank pain, Denies hematuria, Denies nocturia, Denies urinary frequency, Denies urinary retention Musculoskeletal: Denies atrophy, Denies frequent falls, Denies gait dysfunction , Denies leg numbness/tingling, Denies muscle weakness, Denies neck stiffness Musculoskeletal: absent: ankle pain, elbow pain, foot pain, foot swelling, hand pain, hand swelling, hip pain, hip stiffness, hip swelling, knee pain, knee stiffness, knee swelling, shoulder pain, shoulder stiffness Integumentary: Denies dryness, Denies growths, Denies lesions, Denies rash, Denies wounds Neurological: Denies ataxia, Denies confusion, Denies numbness, Denies paresthesias, Denies syncope, Denies weakness, Denies visual changes Psychiatric: Denies anxiety, Denies confusion, Denies depression, Denies hallucinations, Denies memory loss Hematologic/Lymphatic: Denies easy bleeding, Denies lymphadenopathy, Denies lymphedema Past Medical History Past Medical History: Chest Pain / Angina, Diabetes Mellitus, Hypertension Additional Past Medical History / Comment(s): 06/23/15 Pt presented to [facility] ER via EMS with having confusion, some apasia and diaphoreis at home in the night. He also rolled out of bed. His spouse called EMS and in transport symptoms resolved. Other HX: Post hernia repair-pt states he had brain bleed and was transferred from [facility] to [facility]-he had to learn to perform all ADLs again-also had seizures for a short time after the brain bleed but none since 2011. 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-tx with R nephrectomy and chemo in 2012 at [facility], Stage II chronic kidney disease, hypertensive cardiovascular disease with LVH, diabetic neuropathy with low back and L leg pain, BPH Last Myocardial Infarction Date:: 1999 History of Any Multi-Drug Resistant Organisms: None Reported Past Surgical History: Cholecystectomy, Heart Catheterization With Stent Additional Past Surgical History / Comment(s): Nephrectomy Past Anesthesia/Blood Transfusion Reactions: No Reported Reaction Date of Last Stent Placement:: 2005 Past Psychological History: No Psychological Hx Reported Smoking Status: Former smoker (tobacco use for about 2 years) Past Alcohol Use History: None Reported Past Drug Use History: None Reported - Past Family History Father Family Medical History: Asthma, Coronary Artery Disease (CAD) Additional Family Medical History / Comment(s): at age 82 Mother Family Medical History: CVA/TIA Additional Family Medical History / Comment(s): CVA X 2. at age 61 Brother(s) Family Medical History: Myocardial Infarction ([place]) Additional Family Medical History / Comment(s): at age 82 Medications and Allergies Home Medications Medication Instructions Recorded Confirmed Type Atenolol [Tenormin] 50 mg PO BID 06/23/15 12/28/18 History Simvastatin [Zocor] 10 mg PO HS 06/23/15 12/28/18 History Cabozantinib S-Malate [Cabometyx] 40 mg PO DAILY 02/20/18 12/28/18 History Losartan [Cozaar] 50 mg PO BID 02/20/18 12/28/18 History cloNIDine HCL [Catapres] 0.1 mg PO BID 02/20/18 12/28/18 History glipiZIDE [Glucotrol] 10 mg PO AC-BID 02/20/18 12/28/18 History levETIRAcetam [Keppra] 250 mg PO Q12HR 02/20/18 12/28/18 History Allergies Allergy/AdvReac Type Severity Reaction Status Date / Time No Known Allergies Allergy Verified 12/28/18 09:47 Physical Exam Vitals: Vital Signs Temp Pulse Pulse Resp BP BP Pulse Ox 12/28/18 08:00 97.4 F L 54 L 18 184/81 99 12/28/18 06:17 146/71 12/28/18 06:08 97.6 F 57 L 16 164/75 98 12/28/18 05:30 52 L 19 133/74 97 12/28/18 05:00 54 L 14 121/74 97 12/28/18 04:30 52 L 21 121/69 98 12/28/18 04:00 53 L 17 132/75 97 12/28/18 03:30 55 L 14 119/66 96 12/28/18 03:00 56 L 19 135/68 96 12/28/18 02:30 58 L 12 152/79 96 12/28/18 01:30 98.2 F 65 20 182/97 95 Intake and Output 12/27/18 12/28/18 12/28/18 22:59 06:59 14:59 Other: # Voids 1 Weight 77.111 kg - Constitutional General appearance: cooperative, no acute distress - EENT Eyes: EOMI, PERRLA, normal appearance ENT: hearing grossly normal, normal oropharynx, no pharyngeal erythema - Neck Neck: no lymphadenopathy, normal ROM, no stridor, no thyromegaly Carotids: bilateral: upstroke normal, bruit absent Thyroid: bilateral: normal size, negative: enlarged, nodule - Respiratory Respiratory: bilateral: CTA, negative: diminished, rales, rhonchi, wheezing - Cardiovascular Rhythm: regular Heart sounds: normal: S1, S2 - Gastrointestinal General gastrointestinal: no distended, no hepatomegaly, normal bowel sounds, no organomegaly, soft, no splenomegaly, no tenderness - Integumentary Integumentary: normal - Neurologic Neurologic: CNII-XII intact - Musculoskeletal Musculoskeletal: no generalized weakness, strength equal bilaterally, no right sided weakness, no left sided weakness - Psychiatric Psychiatric: appropriate affect Results CBC & Chem 7: 12/29/18 07:05 12/29/18 07:05 Labs: Abnormal Lab Results - Last 24 Hours (Table) 12/28/18 12/28/18 12/28/18 Range/Units 01:39 01:39 06:52 D-Dimer 0.96 H (<0.60) mg/L FEU BUN 31 H (9-20) mg/dL Creatinine 1.85 H (0.66-1.25) mg/dL Glucose 174 H (74-99) mg/dL POC Glucose (mg/dL) 139 H (75-99) mg/dL Total Protein 6.0 L (6.3-8.2) g/dL Albumin 3.4 L (3.5-5.0) g/dL Thrombosis Risk Factor Assmnt - Choose All That Apply Any of the Below Risk Factors Present?: Yes Each Factor Represents 1 point: Obesity (BMI >25) Other Risk Factors: Yes Each Risk Factor Represents 2 Points: Age 61-74 years Each Risk Factor Represents 3 Points: Age 75 years or older Thrombosis Risk Factor Assessment Total Risk Factor Score: 6 Thrombosis Risk Factor Assessment Level: High Risk Assessment and Plan Plan: 1. Chest pain rule out ACS: First troponin was negative, second one did come back elevated at 0.558, cardiology on consult patient initiated on heparin drip 2. Hypertension: Continue Tenormin 50 mg twice a day as well as losartan 50 mg twice a day 0.1 mg twice a day 3. Diabetes: Glipizide 10 mg before meals twice a day, Accu-Cheks 4. Hyperlipidemia: Atorvastatin 20 mg 5. Chronic kidney disease stage 3: BUN 31 creatinine 1.85, looks like this is about his baseline 6. Renal cell carcinoma status post right nephrectomy. Stable 7. Coronary artery disease: Continue Imdur, losartan and Tenormin GI prophylaxis DVT prophylaxis The above impression and plan of care have been discussed and directed by signing physician. Sandra De La Fuente nurse practitioner acting as scribe for signing physician.
--- NOTE | 2018-12-28 13:52 | CONS ---
CONSULTATION Mr. Garzon is a 78-year-old male with a known history of coronary artery disease, status post percutaneous revascularization done many years ago, history of diabetes, hypertension, hyperlipidemia, who presented with symptoms of left arm and chest discomfort that lasted for about 45 minutes. The discomfort woke him up from sleep. He had some reproducible pain in the chest. He had no significant associated dyspnea, dizziness or palpitation, came into the emergency room and after aspirin and nitrate, the discomfort resolved. He is pain free at this time. The patient has been active physically without any difficulty. Denies any exertional chest pain. Denies any dizziness or palpitation. Denies any PND, orthopnea, or peripheral edema. He has a prior history of intracranial bleed following nephrectomy and surgery for lymphoma. He is followed at the [facility] in [place] regarding his malignancy that according to him has been stable. He has underwent a myocardial perfusion imaging about 2 years ago that was unremarkable. His coronary risk factor is remarkable for hypertension, hyperlipidemia, diabetes. He is a nonsmoker. MEDICATION: Include aspirin, Tenormin 50 mg twice a day, , [place], Cozaar 50 mg twice a day, simvastatin 10 mg daily, clonidine 0.1 mg twice a day, glipizide 10 mg twice a day, and Keppra. REVIEW OF SYSTEMS: RESPIRATORY SYSTEM: He has no recent wheezing, no cough, no document obstructive lung disease. GI SYSTEM: No recent GI bleeding. No peptic ulcer disease. SYSTEM: No dysuria or hematuria. NERVOUS SYSTEM: No history of stroke. He had the intracranial bleeding. PHYSICAL EXAMINATION: He is a 78-year-old male, alert, oriented, in no apparent distress. Blood pressure running in the 140 to 160 with a heart in the 50s. HEAD: Normocephalic. EYES: Sclerae nonicteric. NECK: Good upstroke, no bruit, no chest pain. LUNGS: Clear to auscultation. HEART: Regular rate and rhythm, S1, S2. No S3. No rub with a systolic murmur, ejection type, no diastolic murmur. ABDOMEN: Soft, nontender. Positive bowel sounds, no organomegaly. EXTREMITIES: No edema, intact pulses. LAB DATA: Revealed BUN and creatinine 31 and 1.85. Potassium 4.5. Troponin less than 0.012 for one sample. D-dimer 0.96. Hemoglobin is 13.8, white blood cell of 6.2. EKG reveals sinus mechanism, normal intervals with left axis deviation. No acute changes. He had a pulmonary perfusion scan that showed low evidence of pulmonary embolism. IMPRESSION: 1. Chest discomfort has atypical features for ischemic heart disease, probably noncardiac in etiology. According to the that, patient has some reproducible discomfort but was severe. 2. History of hypertension. 3. Hyperlipidemia. 4. Diabetes mellitus. 5. History of percutaneous revascularization. 6. Renal failure. 7. History of nephrectomy and lymphoma. RECOMMENDATION: From the cardiac standpoint, I will add to his regimen nitrate. I will obtain echocardiogram with Doppler. Increase his level of activity. I will review the results of the rest of his lab work. If there is no evidence of abnormality on his subsequent enzymes, I would expect he should be able to be discharged home and followed as an outpatient to undergo myocardial perfusion imaging and depending on that, further recommendation will be made. Thank you for this consult. Will follow with you. CHRISTIANE / STEPHYN: [id number] /
[2018-12-28 14:28] LABS: Creatine Kinase MB 6.8 ng/mL (0.0-2.4)
[2018-12-28 14:30] LABS: Troponin I 1.47 ng/mL (0.000-0.034)
--- NOTE | 2018-12-28 16:10 | ECHOF ---
Referral Reason: MEASUREMENTS -------- HEIGHT: 170.2 cm WEIGHT: 78.9 kg BP: IVSd: 1.5 cm (0.6 - 1.1) LVIDd: 4.0 cm (3.9 - 5.3) LVPWd: 1.5 cm (0.6 - 1.1) IVSs: 1.8 cm LVIDs: 2.3 cm LVPWs: 2.0 cm LAESV Index (A-L): 20.75 ml/m Ao Diam: 2.7 cm (2.0 - 3.7) AV Cusp: 1.9 cm (1.5 - 2.6) LA Diam: 3.1 cm (2.7 - 3.8) MV EXCURSION: 16.312 mm (> 18.000) MV EF SLOPE: 44 mm/s (70 - 150) EPSS: 0.6 cm MV E Shade: 0.76 m/s MV DecT: 233 ms MV A Shade: 0.88 m/s MV E/A Ratio: 0.87 RAP: 5.00 mmHg RVSP: 14.95 mmHg FINDINGS -------- Sinus rhythm. This was a technically adequate study. The left ventricular size is normal. There is moderate concentric left ventricular hypertrophy. O verall left ventricular systolic function is normal with, an EF between 55 - 60 %. The right ventricle is normal in size and function. The left atrium is normal in size. The right atrium is normal in size. The aortic valve is trileaflet, and appears structurally normal. No aortic stenosis or regurgitation. Mild mitral annular calcification present. There is trace mitral regurgitation. Trace tricuspid regurgitation present. There is no evidence of pulmonary hypertension. The right ventricular systolic pressure, as measured by Doppler, is 14.95mmHg. Trace/mild (physiologic) pulmonic regurgitation. The aortic root size is normal. IVC Not well visulized. There is no pericardial effusion. CONCLUSIONS -------- 1. Sinus rhythm. 2. This was a technically adequate study. 3. The left ventricular size is normal. 4. There is moderate concentric left ventricular hypertrophy. 5. Overall left ventricular systolic function is normal with, an EF between 55 - 60 %. 6. The left atrium is normal in size. 7. The aortic valve is trileaflet, and appears structurally normal. No aortic stenosis or regurgitati on. 8. Mild mitral annular calcification present. 9. There is trace mitral regurgitation. 10. Trace tricuspid regurgitation present. 11. There is no evidence of pulmonary hypertension. 12. Trace/mild (physiologic) pulmonic regurgitation. 13. The aortic root size is normal. 14. IVC Not well visulized. 15. There is no pericardial effusion. CHEESE CUTTER: Qi Koch RDCS
[2018-12-28] MEDS ORDERED: ATORVASTATIN 10 MG TAB PO SCH (21:00)
[2018-12-28] MEDS ORDERED: ATORVASTATIN 20 MG TAB PO SCH (21:00)
[2018-12-28 21:26] LABS: Glucose,Whole Blood 126 mg/dL (75-99)
[2018-12-28] MEDS: ATORVASTATIN 40 MG TAB PO SCH (22:19)
[2018-12-29 06:26] LABS: Glucose,Whole Blood 119 mg/dL (75-99)
[2018-12-29 07:48] LABS: Basophils % (A) 1 %; Eosinophils # (A) 0.3 k/uL (0-0.7); Eosinophils % (A) 6 %; HCT 40.1 % (39.0-53.0); HGB 13.3 gm/dL (13.0-17.5); Lymphocytes # (A) 1.3 k/uL (1.0-4.8); Lymphocytes % (A) 26 %; MCH 29.1 pg (25.0-35.0); MCHC 33.1 g/dL (31.0-37.0); Mean Platelet Volume 6.7; Monocytes # (A) 0.4 k/uL (0-1.0); Monocytes % (A) 7 %; Neutrophils # (A) 2.9 k/uL (1.3-7.7); Neutrophils % (A) 58 %; Platelet Count 148 k/uL (150-450); RBC 4.55 m/uL (4.30-5.90); RDW 14.9 % (11.5-15.5)
[2018-12-29 08:01] LABS: Calcium 8.7 mg/dL (8.4-10.2); Potassium 4.7 mmol/L (3.5-5.1)
[2018-12-29] MEDS ORDERED: ATORVASTATIN 80 MG TAB PO STA (08:17)
[2018-12-29] MEDS ORDERED: ALPRAZolam 0.25 MG TAB PO PRN (08:17)
[2018-12-29] MEDS ORDERED: ALPRAZolam 0.5 MG TAB PO PRN (08:17)
[2018-12-29] MEDS ORDERED: ASPIRIN 325 MG TAB PO STA (08:17)
[2018-12-29] MEDS: LOSARTAN 50 MG TAB PO SCH ×2 (08:26→20:06)
[2018-12-29] MEDS: ATENOLOL 50 MG TAB PO SCH ×2 (08:26→20:06)
[2018-12-29] MEDS: cloNIDine HCL 0.1 MG TAB PO SCH (08:26)
[2018-12-29] MEDS: levETIRAcetam 250 MG TAB PO SCH ×2 (08:27→20:06)
[2018-12-29] MEDS: SODIUM CHLORIDE 0.9% 1,000 ML IV SCH ×2 (08:27→10:52)
[2018-12-29] MEDS: ISOSORBIDE MONONITRATE ER 30 MG TAB.ER.24H PO SCH (08:27)
[2018-12-29] MEDS: CABOZANTINIB S MALATE 40 MG PO SCH (08:33)
[2018-12-29] MEDS ORDERED: ASPIRIN 81 MG PO SCH (09:00)
[2018-12-29] MEDS ORDERED: ASPIRIN 325 MG TAB PO SCH (09:00)
[2018-12-29] MEDS: glipiZIDE 10 MG TAB PO SCH ×2 (10:05→16:43)
[2018-12-29] MEDS: HEPARIN SOD,PORK IN 0.45% NACL 25,000 UNIT in 0.45% NACL 1 250ML.BAG IV SCH (10:51)
[2018-12-29 11:51] LABS: Glucose,Whole Blood 134 mg/dL (75-99)
[2018-12-29] MEDS ORDERED: PANTOPRAZOLE 40 MG TABLET PO STA (11:56)
--- NOTE | 2018-12-29 11:57 | P.PN ---
Subjective This is a 78-year-old male one of Dr. Gale patient's with past medical history of hypertension, diabetes, hyperlipidemia, renal cell carcinoma status post nephrectomy with chronic kidney disease, and previous [place] status post stenting in 1998 and 2003. Patient reports he was awoken from his sleep with left-sided chest pain that radiated into her shoulder down his arm. He reports pain was aching and heavy. Patient then proceeded to call EMS, he was provided with 2 nitroglycerin which did relieve the discomfort. Upon workup he had a negative troponin and d-dimer was elevated at 0.96, creatinine 1.85 BUN 31. VQ scan ordered and showed low significant evidence for pulmonary embolism. Chest x- ray did not show any acute lung disease or heart failure. This morning patient reports he has not had any recurrence of his chest pain, denies any shortness of breath, palpitations, nausea or vomiting. Cardiology is on consult, first troponin was negative, second troponin came back at 0.558, patient was started on heparin drip. 12/29: Patient currently in procedure having cardiac catheterization done. Objective - Vital Signs Vital signs: Vital Signs Temp 97.0 F L 12/29/18 11:42 Pulse 59 L 12/29/18 11:42 Resp 18 12/29/18 11:42 BP 142/69 12/29/18 11:42 Pulse Ox 97 12/29/18 11:42 Intake & Output 12/28/18 12/29/18 12/29/18 18:59 06:59 18:59 Intake Total 301.821 56.026 112.131 Balance 301.821 56.026 112.131 Weight 79.6 kg Intake: Intake, IV Titration 61.821 56.026 112.131 Amount Heparin Sod,Pork in 0.45% 61.821 56.026 112.131 NaCl 25,000 unit In 0.45 % NaCl 1 250ml.bag @ 12 UNITS/KG/HR 9.25 mls/hr IV .Q24H DENZEL Rx#: [id number] Oral 240 Other: Voiding Method Toilet # Voids 1 - Exam - Constitutional General appearance: cooperative, no acute distress - EENT Eyes: EOMI, PERRLA, normal appearance ENT: hearing grossly normal, normal oropharynx, no pharyngeal erythema - Neck Neck: no lymphadenopathy, normal ROM, no stridor, no thyromegaly Carotids: bilateral: upstroke normal, bruit absent Thyroid: bilateral: normal size, negative: enlarged, nodule - Respiratory Respiratory: bilateral: CTA, negative: diminished, rales, rhonchi, wheezing - Cardiovascular Rhythm: regular Heart sounds: normal: S1, S2 - Gastrointestinal General gastrointestinal: no distended, no hepatomegaly, normal bowel sounds, no organomegaly, soft, no splenomegaly, no tenderness - Integumentary Integumentary: normal - Neurologic Neurologic: CNII-XII intact - Musculoskeletal Musculoskeletal: no generalized weakness, strength equal bilaterally, no right sided weakness, no left sided weakness - Psychiatric Psychiatric: appropriate affect - Labs CBC & Chem 7: 12/29/18 07:05 12/29/18 07:05 Labs: Abnormal Lab Results - Last 24 Hours (Table) 12/28/18 12/28/18 12/28/18 Range/Units 13:35 15:40 21:25 Plt Count (150-450) k/uL APTT 78.1 H (22.0-30.0) sec Chloride (98-107) mmol/L BUN (9-20) mg/dL Creatinine (0.66-1.25) mg/dL Glucose (74-99) mg/dL POC Glucose (mg/dL) 126 H (75-99) mg/dL CK-MB (CK-2) 6.8 H (0.0-2.4) ng/mL Troponin I 1.470 H* (0.000-0.034) ng/mL 12/28/18 12/29/18 12/29/18 Range/Units 23:46 06:24 07:05 Plt Count (150-450) k/uL APTT 41.0 H (22.0-30.0) sec Chloride 109 H (98-107) mmol/L BUN 26 H (9-20) mg/dL Creatinine 1.46 H (0.66-1.25) mg/dL Glucose 128 H (74-99) mg/dL POC Glucose (mg/dL) 119 H (75-99) mg/dL CK-MB (CK-2) (0.0-2.4) ng/mL Troponin I (0.000-0.034) ng/mL 12/29/18 12/29/18 12/29/18 Range/Units 07:05 07:05 11:48 Plt Count 148 L (150-450) k/uL APTT 44.3 H (22.0-30.0) sec Chloride (98-107) mmol/L BUN (9-20) mg/dL Creatinine (0.66-1.25) mg/dL Glucose (74-99) mg/dL POC Glucose (mg/dL) 134 H (75-99) mg/dL CK-MB (CK-2) (0.0-2.4) ng/mL Troponin I (0.000-0.034) ng/mL Assessment and Plan Plan: 1. Chest pain rule out ACS: First troponin was negative, second one did come back elevated at 0.558, cardiology on consult patient initiated on heparin drip , will continue with Tenormin 50 mg twice a day, losartan 50 mg twice a day, aspirin 81 mg, atorvastatin 40 mg. Patient in procedure having cardiac catheterization today 2. Hypertension: Continue Tenormin 50 mg twice a day as well as losartan 50 mg twice a day, and clonidine 0.1 mg twice a day 3. Diabetes: Glipizide 10 mg before meals twice a day, Accu-Cheks 4. Hyperlipidemia: Atorvastatin 20 mg 5. Chronic kidney disease stage 3: BUN 31 creatinine 1.85, looks like this is about his baseline 6. Renal cell carcinoma status post right nephrectomy. Stable 7. Coronary artery disease: Continue Imdur, losartan and Tenormin GI prophylaxis protonix DVT prophylaxis heparin The above impression and plan of care have been discussed and directed by signing physician. Sandra De La Fuente nurse practitioner acting as scribe for signing physician.
[2018-12-29] MEDS ORDERED: IV FLUID CONTINUATION 1,000 ML IV ONE (13:22)
[2018-12-29] MEDS ORDERED: VERAPAMIL 2.5 MG/ML 2 ML AMP ONE ×2 (13:29→13:32)
[2018-12-29] MEDS ORDERED: HEPARIN SODIUM 1,000 UN/ML (10ML VL) ONE (13:30)
[2018-12-29] MEDS ORDERED: fentaNYL (PF) 50 MCG/ML 2 ML AMP ONE (13:30)
[2018-12-29] MEDS ORDERED: LIDOCAINE 1% INJ 10MG/ML (20 ML MDV) ONE (13:30)
[2018-12-29] MEDS ORDERED: fentaNYL (PF) 50 MCG/ML 2 ML AMP IVP ONE (13:46)
[2018-12-29] MEDS ORDERED: LIDOCAINE 1% INJ 10MG/ML (20 ML MDV) SQ ONE (13:49)
[2018-12-29] MEDS ORDERED: MIDAZOLAM 2 MG/2 ML VIAL IVP ONE (13:50)
[2018-12-29] MEDS ORDERED: VERAPAMIL SYRINGE (5 MG/10 ML) INTRAARTER ONE (13:51)
[2018-12-29] MEDS ORDERED: TICAGRELOR 90 MG TAB ONE (14:01)
[2018-12-29] MEDS ORDERED: BIVALIRUDIN BOLUS 250 MG/50 ML IV ONE (14:03)
[2018-12-29] MEDS ORDERED: TICAGRELOR 90 MG TAB PO ONE (14:04)
[2018-12-29] MEDS ORDERED: BIVALIRUDIN 250 MG in SODIUM CHLORIDE 0.9% 50 ML IV ONE (14:06)
[2018-12-29] MEDS ORDERED: NITROGLYCERIN 1000MCG/10ML SYRINGE INTRACORON ONE (14:08)
[2018-12-29] MEDS ORDERED: IOPAMIDOL-370 125ML BTL INJ ONE ×2 (14:26)
[2018-12-29] MEDS ORDERED: IOPAMIDOL-370 50ML BTL INJ ONE ×2 (14:47→15:02)
[2018-12-29] MEDS ORDERED: ZOLPIDEM 5 MG TAB PO PRN (15:16)
[2018-12-29] MEDS ORDERED: ATROPINE SULFATE 0.1 MG/ML 10ML SYRINGE IV PRN (15:16)
[2018-12-29] MEDS ORDERED: RX INFO: IV CONTRAST WAS GIVEN 1 EACH MISC MISCELLANE PRN (15:16)
[2018-12-29] MEDS ORDERED: MAG HYDROX/AL HYDROX/SIMETH 30 ML CUP PO PRN (15:16)
[2018-12-29] MEDS ORDERED: SODIUM CHLORIDE 0.9% 1,000 ML IV SCH (15:30)
[2018-12-29 16:24] LABS: Glucose,Whole Blood 110 mg/dL (75-99)
[2018-12-29] MEDS ORDERED: cloNIDine HCL 0.1 MG TAB PO STA (16:25)
[2018-12-29] MEDS ORDERED: ONDANSETRON 4 MG/2 ML VIAL IVP PRN (16:37)
--- NOTE | 2018-12-29 17:34 | CC ---
CARDIAC CATHETERIZATION REPORT HISTORY: Mr. Garzon is a 78-year-old male with known history of coronary artery disease, history of hyperlipidemia, history of chronic kidney disease, who presented with symptoms of chest discomfort and evidence of non ST-segment elevation myocardial infarction. In view of that, recommendation made regarding cardiac catheterization. The procedure as well as the risks and complications were discussed with the patient who is in full understanding and agreement. The patient was hydrated prior to the procedure. PROCEDURE: Patient was brought to the analytical lab technician in a fasting state after receiving fentanyl and Benadryl and achieving moderate conscious sedated state. Using Xylocaine anesthesia and Seldinger technique, a 6-[place] sheath was introduced in the right radial artery. Selective right and left angiography was performed using 5-[place] 3-1/2 bend right Deja catheter was used. Multiple views of the coronary arteries including hemiaxial views obtained. Following that a 5-[place] right Deja was used to cross the aortic valve and pressures were calculated. Following that, catheter removed and images were reviewed. FINDINGS: FLUOROSCOPY: There was severe calcification involving all coronary arteries. LEFT MAIN: This is a large-sized vessel bifurcating in left circumflex, left anterior descending artery. Left main coronary artery has no evidence of high-grade stenosis. LEFT DESCENDING CORONARY ARTERY: This a large sized vessel, tapers down in the distal third. The left anterior descending artery stented segment proximally is patent , has no evidence of significant in-stent restenosis. There is about 20% to 30% plaque in the mid segment after the takeoff of the 3rd diagonal branch. There is a plaque of about 60% to 70%. The rest of the vessel has diffuse intimal disease without any evidence of high-grade stenosis. LEFT CIRCUMFLEX: This is a nondominant vessel, calcified, giving rise to two obtuse marginal branches. The first one is large in caliber. The first obtuse marginal branch has a 99% stenosis in a calcified segment proximally. The rest of the vessel has no high-grade stenosis. RIGHT CORONARY ARTERY: This is a large dominant vessel, bifurcating into PDA and posterolateral segment branches. There is a stented segment in the mid and proximal right coronary artery which is patent. There is evidence of in-stent restenosis up to 20% to 30%. Distally there is diffuse severe intimal disease involving the PLV and PDA, which are small in caliber. LEFT VENTRICULOGRAM: Not performed. HEMODYNAMICS: There was no gradient across the aortic valve. The left ventricular end- diastolic pressure was 8 mmHg. CONCLUSION: 1. Critical stenosis involving the first obtuse marginal branch. 2. Diffuse intimal disease in the PDA and the PLV. 3. Moderate disease in the mid LAD. RECOMMENDATIONS: In view of finding of anatomy, I recommend proceeding with angioplasty and stenting of the arm obtuse marginal branch. The procedure as well as the risks and complications were discussed with the patient who is in full understanding and agreement. MMHELEN / SHANEL: [id number] / MTDD
--- NOTE | 2018-12-29 17:41 | PTCA ---
PERCUTANEOUSTRANS CORORONARY ANGIOGRAPHY HISTORY: Mr. Garzon is a 78-year-old male with a known history of coronary artery disease, status post percutaneous revascularization in 1999, who presented with non ST-segment segment elevation myocardial infarction, underwent coronary angiography, was found to have critical stenosis involving the first obtuse marginal branch. In view of that, recommendation was made regarding angioplasty and stenting. The procedure as well as the risks and complications were discussed with the patient who is in full understanding and agreement. PROCEDURE: A 6-Upper [place] 3.5 guiding catheter was introduced in the system after entering the left main a 0.014 balanced medium J-wire was advanced across the lesion, positioned distally. Following that the attempt to advance a 2.25 x 15 mm Xience Yoselin stent was unsuccessful. That stent was removed and a 2.25 x 12 mm Trek balloon was advanced and multiple inflations, maximum of 10 atmospheres, were done. Following that the balloon was removed and attempts to advance the stent were unsuccessful because of the severe calcification. At that point, a whisper 0.014 whisper J-wire was advanced next to the first one in a yesenia fashion, positioned distally, and attempts to advance the stent, there were unsuccessful. That stent was removed and an attempts to advance a 2.0 x 15 mm Scooter Resolute stent were unsuccessful. That stent was removed and a 2.0 x 8 mm resolute Onxy stent was advanced, deployed and postdilated at 16 atmospheres. Following that the balloon was removed and a 2.0 x 15 mm Scooter stent was deployed proximal to the first one and post dilated at 16 atmospheres. Following that and after removing the balloon, a 2.0 x 8 mm Scooter Resolute stent was deployed in the segment between the 2 stents and post dilated at 16 atmospheres. After the last inflation, after appropriate wait, the balloon and the guidewire were withdrawn back in the guiding catheter. Images were obtained and repeated. Those images revealed stable successful stenting. At that point, the guiding catheter, the balloon and the guidewire were removed, the sheath was removed. Hemostasis was obtained with deployment of a TR band. There were no immediate complications. Patient was returned to his room in stable condition. Of note, the patient received Angiomax per protocol as well as oral loading dose of Brilinta. He had no chest discomfort or significant EKG changes with the inflations. RESULTS: Successful stenting of the first obtuse marginal branch in a calcified segment with reduction of stenosis from 99% to 0%. RECOMMENDATIONS: Patient be continued on aspirin, Brilinta, beta pasha, and statin. The importance of dual antiplatelet treatment were discussed with the patient and his family who are in full understanding and agreement. DURATION OF PROCEDURE: 72 minutes. CHRISTIANE / SHANEL: [id number] /
[2018-12-29] MEDS: NITROGLYCERIN SL TABS 0.4 MG TAB SUBLINGUAL PRN ×2 (17:43→17:48)
[2018-12-29] MEDS ORDERED: NITROGLYCERIN-D5W PMX 50 MG in DEXTROSE/WATER 1 250ML.BAG IV SCH (18:00)
[2018-12-29] MEDS: ATORVASTATIN 40 MG TAB PO SCH (20:06)
[2018-12-29] MEDS: TICAGRELOR 90 MG TAB PO SCH (20:06)
[2018-12-29 20:43] LABS: Glucose,Whole Blood 178 mg/dL (75-99)
[2018-12-30] MEDS: SODIUM CHLORIDE 0.9% 1,000 ML IV SCH (02:00)
[2018-12-30 06:09] LABS: Calcium 8.5 mg/dL (8.4-10.2); Potassium 4.3 mmol/L (3.5-5.1)
[2018-12-30 06:35] LABS: Glucose,Whole Blood 160 mg/dL (75-99)
[2018-12-30] MEDS: glipiZIDE 10 MG TAB PO SCH (06:38)
[2018-12-30 07:44] VITALS: PULSE 64; RESP 18; TEMP 96.7
[2018-12-30] MEDS: LOSARTAN 50 MG TAB PO SCH (07:49)
[2018-12-30] MEDS: ATENOLOL 50 MG TAB PO SCH (07:49)
[2018-12-30] MEDS: TICAGRELOR 90 MG TAB PO SCH (07:50)
[2018-12-30] MEDS: levETIRAcetam 250 MG TAB PO SCH (07:51)
[2018-12-30] MEDS: CABOZANTINIB S MALATE 40 MG PO SCH (07:55)
--- NOTE | 2018-12-30 08:39 | P.PN ---
Subjective Progress Note Date: 12/30/18 This is a pleasant 78-year-old gentleman with known history of coronary artery disease with prior PCI many years ago, history of diabetes, hypertension, hyperlipidemia, who presented to the hospital with a non-ST elevation myocardial infarction. He was taken to the cardiac catheterization lab by Dr. Gardner where he underwent angioplasty and stenting of the obtuse marginal branch. Patient was seen and examined this morning, feels well, denies any chest pain or difficulty in breathing. He did have some tenderness noted at the right radial site which is mildly firm this morning but has a good distal pulse. EKG shows normal sinus rhythm with no changes from post-PCI. His blood pressure this morning 190/90, he had not yet received his morning medications, heart rate in the 60s, 98% on room air. Sodium 136, BUN 20, creatinine 1.3. Objective - Vital Signs Vital signs: Vital Signs Temp 96.7 F L 12/30/18 07:39 Pulse 64 12/30/18 07:39 Resp 18 12/30/18 07:39 BP 190/90 12/30/18 07:39 Pulse Ox 98 12/30/18 07:39 Intake & Output 12/29/18 12/30/18 12/30/18 18:59 06:59 18:59 Intake Total 297.131 791.8 Balance 297.131 791.8 Weight 79.3 kg Intake: IV 185 Intake, IV Titration 112.131 311.8 Amount Heparin Sod,Pork in 0.45% 112.131 NaCl 25,000 unit In 0.45 % NaCl 1 250ml.bag @ 12 UNITS/KG/HR 9.25 mls/hr IV .Q24H DENZEL Rx#: [id number] Nitroglycerin-D5w Pmx 50 11.8 mg In Dextrose/Water 1 250ml.bag @ 10 MCG/MIN 3 mls/hr IV .Q24H DENZEL Rx#: [id number] Sodium Chloride 0.9% 1, 300 000 ml @ 100 mls/hr IV . Q10H DENZEL Rx#:[id number] Oral 0 480 Other: Voiding Method Toilet Toilet # Voids 1 - Exam PHYSICAL EXAMINATION: GENERAL: 78-year-old gentleman in no acute distress at the time of my examination HEENT: Head is atraumatic, normocephalic. Pupils equal, round. Sclera anicteric. Conjunctiva are clear. Mucous membranes of the mouth are moist. Neck is supple. There is no elevated jugular venous pressure. No carotid bruit is heard. HEART EXAMINATION: Heart S1 S2 1 systolic ejection murmur is heard. CHEST EXAMINATION: Lungs are clear to auscultation and precussion. No chest wall tenderness is noted on palpation or with deep breathing. ABDOMEN: Soft, nontender. Bowel sounds are heard. No organomegaly noted. EXTREMITIES: 2+ peripheral pulses with no evidence of peripheral edema and no calf tenderness noted. Right radial site clean and dry, good distal pulse, small, tender, firm area noted above the site NEUROLOGIC patient is awake, alert and oriented 3 . . - Labs CBC & Chem 7: 12/29/18 07:05 12/30/18 05:05 Labs: Abnormal Lab Results - Last 24 Hours (Table) 12/29/18 12/29/18 12/29/18 Range/Units 11:48 16:04 20:41 Sodium (137-145) mmol/L Creatinine (0.66-1.25) mg/dL Glucose (74-99) mg/dL POC Glucose (mg/dL) 134 H 110 H 178 H (75-99) mg/dL 12/30/18 12/30/18 Range/Units 05:05 06:33 Sodium 136 L (137-145) mmol/L Creatinine 1.35 H (0.66-1.25) mg/dL Glucose 158 H (74-99) mg/dL POC Glucose (mg/dL) 160 H (75-99) mg/dL Assessment and Plan Plan: Assessment and plan #1 status post angioplasty and stenting of the obtuse marginal branch #2 known history of coronary artery disease with prior PCI #3 hypertension #4 diabetes #5 renal failure #6 history of nephrectomy and lymphoma #7 hyperlipidemia Plan Patient may be able to be discharged home today. Follow-up appointment with Dr. Gardner in the office next Sunday. Patient will be discharged home on aspirin 81 mg daily, Tenormin 50 mg daily, Lipitor 40 mg daily, clonidine 0.1 mg daily, Brilinta 90 mg one tablet by mouth twice a day, and sublingual nitroglycerin as needed for chest pain. DNP note has been reviewed, I agree with a documented findings and plan of care. Patient was seen and examined.
[2018-12-30] MEDS ORDERED: ASPIRIN 81 MG PO SCH (09:00)
[2018-12-30] MEDS ORDERED: cloNIDine HCL 0.1 MG TAB PO SCH (09:00)
[2018-12-30 11:14] VITALS: BP 170/80
--- NOTE | 2018-12-30 14:01 | P.DS ---
Providers Date of admission: 12/29/18 11:36 Expected date of discharge: 12/30/18 Attending physician: Dane Brennan Consults: 12/28/18 04:52 Consult Physician Routine Consulting Provider: Sinan Sotelo Consult Reason/Comments: chest pain Do you want consulting provider notified?: Yes 12/29/18 15:16 Consult Physician Routine Consulting Provider: [facility] Consult Reason/Comments: Post Interventional patient Do you want consulting provider notified?: Already Contacted Primary care physician: [facility] Hospital Course: This is a 78-year-old male one of Dr. Gale patient's with past medical history of hypertension, diabetes, hyperlipidemia, renal cell carcinoma status post nephrectomy with chronic kidney disease, and previous CO status post stenting in 1998 and 2003. Patient reports he was awoken from his sleep with left-sided chest pain that radiated into her shoulder down his arm. He reports pain was aching and heavy. Patient then proceeded to call EMS, he was provided with 2 nitroglycerin which did relieve the discomfort. Upon workup he had a negative troponin and d-dimer was elevated at 0.96, creatinine 1.85 BUN 31. VQ scan ordered and showed low significant evidence for pulmonary embolism. Chest x- ray did not show any acute lung disease or heart failure. This morning patient reports he has not had any recurrence of his chest pain, denies any shortness of breath, palpitations, nausea or vomiting. Cardiology is on consult, first troponin was negative, second troponin came back at 0.558, patient was started on heparin drip. 2/3: Patient currently in procedure having cardiac catheterization done. 4: Patient is status post angioplasty and 3 stents in the obtuse marginal branch with Dr. Gardner yesterday. Echocardiogram reveals EF of 55-60% with moderate concentric left ventricular hypertrophy, trace mitral regurgitation, trace tricuspid regurgitation, no pulmonary hypertension. Patient has been seen by rn clinical research this morning and has been cleared for discharge. Patient is dressed and ready for discharge. Patient will be discharged home today in stable condition. Discharge diagnoses: 1. Chest pain secondary to coronary artery disease status post PCI. 2. Hypertension 3. Diabetes mellitus type 2 4. Hyperlipidemia 5. Chronic kidney disease stage 3 6. Renal cell carcinoma status post right nephrectomy. Stable 7. Coronary artery disease Discharge diagnoses: The above impression and plan of care have been discussed and directed by signing physician. Sandra Maniaci nurse practitioner acting as scribe for signing physician. Patient Condition at Discharge: Good Plan - Discharge Summary Discharge Rx Participant: No New Discharge Prescriptions: New Aspirin 81 mg PO DAILY #30 chew Atorvastatin [Lipitor] 40 mg PO HS #30 tab Nitroglycerin Sl Tabs [Nitrostat] 0.4 mg SUBLINGUAL Q5M PRN #25 tab PRN Reason: Chest Pain Ticagrelor [Brilinta] 90 mg PO BID #60 tab Continue Atenolol [Tenormin] 50 mg PO BID glipiZIDE [Glucotrol] 10 mg PO AC-BID cloNIDine HCL [Catapres] 0.2 mg PO BID levETIRAcetam [Keppra] 250 mg PO Q12HR Losartan [Cozaar] 50 mg PO BID Discontinued Simvastatin [Zocor] 10 mg PO HS No Action Cabozantinib S-Malate [Cabometyx] 40 mg PO DAILY Discharge Medication List Atenolol [Tenormin] 50 mg PO BID 06/23/15 [History] Cabozantinib S-Malate [Cabometyx] 40 mg PO DAILY 02/20/18 [History] Losartan [Cozaar] 50 mg PO BID 02/20/18 [History] cloNIDine HCL [Catapres] 0.2 mg PO BID 02/20/18 [History] glipiZIDE [Glucotrol] 10 mg PO AC-BID 02/20/18 [History] levETIRAcetam [Keppra] 250 mg PO Q12HR 02/20/18 [History] Aspirin 81 mg PO DAILY #30 chew 12/30/18 [Rx] Atorvastatin [Lipitor] 40 mg PO HS #30 tab 12/30/18 [Rx] Nitroglycerin Sl Tabs [Nitrostat] 0.4 mg SUBLINGUAL Q5M PRN #25 tab 12/30/18 [Rx ] Ticagrelor [Brilinta] 90 mg PO BID #60 tab 12/30/18 [Rx] Follow up Appointment(s)/Referral(s): Humberto Gardner MD [STAFF PHYSICIAN] - 01/07/19 3:30 pm (Sunday) Romie Dominguez MD [Primary Care Provider] - 01/02/19 10:15 am () Patient Instructions/Handouts: *[facility] - After Heart Catheterization - Senior Controls Technician Instructions, Left Heart Catheterization (DC) Activity/Diet/Wound Care/Special Instructions: Increase clonidine to 0.2mg twice a day Discharge Disposition: HOME SELF-CARE
--- NOTE | 2019-01-01 10:59 | CDI ---
Documentation Clarification Form Date: 01/01/19 From: Dacia Shrestha Phone: If you have a question regarding this query, please contact Lesli Shore at [phone] between 8am and 5pm. Admit Date: 12/29/2018 11:36:00 AM Patient Name: Jose Garzon Visit Number: [id number] Discharge Date: 12/30/2018 11:24:00 AM ATTENTION: The Clinical Documentation Specialists (CDI) and [facility] Coding Staff appreciate your assistance in clarifying documentation. Please respond to the clarification below the line at the bottom and electronically sign. The CDI & [facility] Coding staff will review the response and follow-up if needed. Please note: Queries are made part of the Legal Health Record. If you have any questions, please contact the author of this message via ITS. Dr. Dane Brennan Conflicting documentation has been found in the medical record: Per Dr. Gardner' s 12/30 prog note, patient presented to the [facility] with a NSTEMI. Dr. Gardner documents in the cardiac cath report -patient presented with symptoms of chest discomfort and evidence of non ST-segment elevation myocardial infarction and then in the PTCA report, Dr. Gardner states the patient presented with non ST- segment elevation myocardial infarction. In the discharge summary, you document that the patient had chest pain secondary to coronary artery disease. History/Risk Factors: Patient has a history of [place], CAD, hypertensive cardiovascular disease, hyperlipidemia, previous CABG and stent placement. Patient was having chest pain at home that did not resolve and EMS adminstered nitroglycerin x2 which did relieve the discomfort Clinical Indicators: Chest pain that radiated to the shoulder and down the arm and elevated troponin I Lab: Troponin: <0.012, 0.558, 1.470 Cardiac Cath: 1. Critical stenosis involving the first obtuse marginal branch. 2. Diffuse intimal disease in the PDA and the PLV. 3. Moderate disease in the LAD Treatment: PTCA with insertion of 3 stents. In your opinion, what is the most clinically appropriate diagnosis for this patient? NSTEMI CAD with unstable angina CAD Other explanation of clinical findings Unable to determine (no explanation for clinical findings) MTDD
--- NOTE | 2019-01-13 16:18 | CDI ---
Documentation Clarification Form Date: 01/13/19 From: Dacia Shrestha Phone: If you have a question regarding this query, please contact Lesli Shore at [phone] between 8am and 5pm. Admit Date: 12/29/2018 11:36:00 AM Patient Name: Jose Garzon Visit Number: [id number] Discharge Date: 12/30/2018 11:24:00 AM ATTENTION: The Clinical Documentation Specialists (CDI) and [facility] Coding Staff appreciate your assistance in clarifying documentation. Please respond to the clarification below the line at the bottom and electronically sign. The CDI & [facility] Coding staff will review the response and follow-up if needed. Please note: Queries are made part of the Legal Health Record. If you have any questions, please contact the author of this message via ITS. Dr. Dane Brennan Thank you for signing your previous query. Please document a response to this query before signing. Conflicting documentation has been found in the medical record: Per Dr. Gardner' s 12/30 progress note, the patient presented to the hospital with a NSTEMI. Dr. Gardner documents in the cardiac cath report the patient presented with symptoms of chest discomfort and evidence of non ST-segment elevation myocardial infarction and then in the PTCA report Dr. Gardner states the patient presented with non ST-segment elevation myocaridal infarction. In the discharge summary, you document that the patient had chest pain secondary to coronary artery disease. History/Risk Factors: Patient has a history of [place], CAD, hypertensive cardiovascular disease, hyperlipidemia, previous CABG and stent placement. Patient was having chest pain at home that did not resolve and EMS adminstered nitroglycerin x2 which did relieve the discomfort Clinical Indicators: Chest pain that radiated to the shoulder and down the arm and elevated troponin I Lab: Troponin: <0.012, 0.558, 1.470 Cardiac Cath: 1. Critical stenosis involving the first obtuse marginal branch. 2. Diffuse intimal disease in the PDA and the PLV. 3. Moderate disease in the LAD Treatment: PTCA with insertion of 3 stents. In your opinion, what is the most clinically appropriate diagnosis for this patient? NSTEMI CAD with unstable angina CAD Other explanation of clinical findings Unable to determine (no explanation for clinical findings) NSTEMI MTDD
== END 2018-12-30 11:24 | disposition home or self-care (01) | DRG 247 ==
LOC: EC 01:29 → 1SOBS 04:52 → 3SCARD 16:47 → OBSVTOIN 12-29 11:36
PROVIDERS: ADMIT Internal Medicine; ATTEND Internal Medicine
PROC: B2111ZZ Fluoroscopy of Multiple Coronary Arteries using Low Osmolar Contrast (ICD-10-PCS; 2018-12-29)
PROC: 027036Z Dilation of Coronary Artery, One Artery with Three Drug-eluting Intraluminal Devices, Percutaneous Approach (ICD-10-PCS; principal; 2018-12-29 13:19)
PROC: 4A023N7 Measurement of Cardiac Sampling and Pressure, Left Heart, Percutaneous Approach (ICD-10-PCS; 2018-12-29 13:19)
DX: I21.4 Non-ST elevation (NSTEMI) myocardial infarction (principal); I25.10 Atherosclerotic heart disease of native coronary artery without angina pectoris; E11.22 Type 2 diabetes mellitus with diabetic chronic kidney disease; E11.40 Type 2 diabetes mellitus with diabetic neuropathy, unspecified; I13.10 Hypertensive heart and chronic kidney disease without heart failure, with stage 1 through stage 4 chronic kidney disease, or unspecified chronic kidney disease; N18.3 Chronic kidney disease, stage 3 (moderate); E78.5 Hyperlipidemia, unspecified; I25.2 Old myocardial infarction; N40.0 Benign prostatic hyperplasia without lower urinary tract symptoms; Z79.82 Long term (current) use of aspirin; Z79.84 Long term (current) use of oral hypoglycemic drugs; Z79.899 Other long term (current) drug therapy; Z95.1 Presence of aortocoronary bypass graft; Z95.5 Presence of coronary angioplasty implant and graft; Z92.21 Personal history of antineoplastic chemotherapy; Z90.5 Acquired absence of kidney; Z87.891 Personal history of nicotine dependence; Z86.73 Personal history of transient ischemic attack (TIA), and cerebral infarction without residual deficits; Z85.528 Personal history of other malignant neoplasm of kidney; Z85.72 Personal history of non-Hodgkin lymphomas; Z90.49 Acquired absence of other specified parts of digestive tract; Z82.49 Family history of ischemic heart disease and other diseases of the circulatory system; Z82.5 Family history of asthma and other chronic lower respiratory diseases; Z82.3 Family history of stroke
CPT/HCPCS: 36415; 71046; 78582; 80048; 80053; 80061; 82550; 82553; 83735; 84484; 85025; 85379; 85610; 85730; 93005; 93306; 93458; 99285; C1874

== ENCOUNTER 2019-02-14 19:12 | Emergency (ER) | payer OTHER, MEDICARE ==
[2019-02-14] MEDS ORDERED: levETIRAcetam IV 1,000 MG in SALINE 1 100ML.BAG IVPB STA (19:43)
--- NOTE | 2019-02-14 19:46 | ED ---
General Adult HPI - General Chief complaint: Altered Mental Status Stated complaint: blood in mouth,not talking Time Seen by Provider: 02/14/19 19:37 Source: patient, RN notes reviewed, old records reviewed Mode of arrival: wheelchair Limitations: altered mental status - History of Present Illness Initial comments: 78-year-old male presents with altered mental status and seizure-like activity. Patient was confused, had bleeding from his mouth at home. There is no witnessed seizure activity, however he was acting inappropriate, brought to the emergency department for evaluation. While in the emergency center waiting room patient did have what sounds like focal seizure activity with right upper extremity in the arm, patient was alert but nonverbal at this time. He has history of intracranial hemorrhage approximately 2 years ago. Patient is on dual antiplatelet agents status post SC 1 month ago. Denies headache. His mental status is somewhat improved at the time my evaluation. Denies focal numbness or weakness. He is moving all extremity. No pain complaints. - Related Data Home Medications Medication Instructions Recorded Confirmed Atenolol [Tenormin] 50 mg PO BID 06/23/15 12/28/18 Cabozantinib S-Malate [Cabometyx] 40 mg PO DAILY 02/20/18 12/28/18 Losartan [Cozaar] 50 mg PO BID 02/20/18 12/28/18 cloNIDine HCL [Catapres] 0.2 mg PO BID 02/20/18 12/30/18 glipiZIDE [Glucotrol] 10 mg PO AC-BID 02/20/18 12/28/18 levETIRAcetam [Keppra] 250 mg PO Q12HR 02/20/18 12/28/18 Previous Rx's Medication Instructions Recorded Aspirin 81 mg PO DAILY #30 chew 12/30/18 Atorvastatin [Lipitor] 40 mg PO HS #30 tab 12/30/18 Nitroglycerin Sl Tabs [Nitrostat] 0.4 mg SUBLINGUAL Q5M PRN #25 tab 12/30/18 Ticagrelor [Brilinta] 90 mg PO BID #60 tab 12/30/18 Allergies Allergy/AdvReac Type Severity Reaction Status Date / Time Iodinated Contrast- Oral and AdvReac KIDNEY Verified 02/14/19 20:05 IV Dye Review of Systems ROS Statement: Those systems with pertinent positive or pertinent negative responses have been documented in the HPI. ROS Other: All systems not noted in ROS Statement are negative. Past Medical History Past Medical History: Chest Pain / Angina, Diabetes Mellitus, Hypertension Additional Past Medical History / Comment(s): 06/23/15 Pt presented to [facility] ER via EMS with having confusion, some apasia and diaphoreis at home in the night. He also rolled out of bed. His spouse called EMS and in transport symptoms resolved. Other HX: Post hernia repair-pt states he had brain bleed and was transferred from [facility] to [facility]-he had to learn to perform all ADLs again-also had seizures for a short time after the brain bleed but none since 2012. 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-tx with R nephrectomy and chemo in 2011 at [facility], Stage II chronic kidney disease, hypertensive cardiovascular disease with LVH, diabetic neuropathy with low back and L leg pain, BPH Last Myocardial Infarction Date:: 1999 History of Any Multi-Drug Resistant Organisms: None Reported Past Surgical History: Cholecystectomy, Heart Catheterization With Stent Additional Past Surgical History / Comment(s): Nephrectomy Past Anesthesia/Blood Transfusion Reactions: No Reported Reaction Date of Last Stent Placement:: 2005 Past Psychological History: No Psychological Hx Reported Smoking Status: Former smoker Past Alcohol Use History: None Reported Past Drug Use History: None Reported - Past Family History Brother(s) Family Medical History: Myocardial Infarction ([place]) Additional Family Medical History / Comment(s): at age 82 Father Family Medical History: Asthma, Coronary Artery Disease (CAD) Additional Family Medical History / Comment(s): at age 82 Mother Family Medical History: CVA/TIA Additional Family Medical History / Comment(s): CVA X 2. at age 61 General Exam Limitations: altered mental status General appearance: alert, in no apparent distress Head exam: Present: atraumatic Eye exam: Present: normal appearance, PERRL, EOMI. Absent: nystagmus ENT exam: Present: other (Tongue Ecchymosis and Superficial Laceration, Right) Cardiovascular Exam: Present: regular rate, normal rhythm GI/Abdominal exam: Present: soft, distended. Absent: tenderness, guarding, rebound Extremities exam: Present: normal inspection, normal capillary refill. Absent: pedal edema Neurological exam: Present: alert, oriented X3, CN II-XII intact. Absent: motor sensory deficit Psychiatric exam: Present: normal affect, normal mood Skin exam: Present: warm, dry, intact. Absent: cyanosis, diaphoretic Course Vital Signs 02/14/19 02/14/19 02/14/19 19:25 19:35 19:40 Temperature 97.8 F Pulse Rate 68 65 65 Respiratory 18 18 21 Rate Blood Pressure 230/94 204/124 204/124 O2 Sat by Pulse 99 100 Oximetry 02/14/19 02/14/19 02/14/19 19:50 20:00 20:10 Temperature Pulse Rate 63 65 Respiratory 15 18 Rate Blood Pressure 195/107 195/107 178/109 O2 Sat by Pulse 98 98 Oximetry 02/14/19 02/14/19 02/14/19 20:20 20:30 20:40 Temperature Pulse Rate 64 65 64 Respiratory 18 23 20 Rate Blood Pressure 178/109 156/72 156/72 O2 Sat by Pulse 97 96 98 Oximetry EKG Findings - EKG Comments: EKG Findings:: EKG: Normal sinus rhythm, rate of 66, ventricular rate 178, QRS duration 98, QTC [address] segment elevation Medical Decision Making - Medical Decision Making 78-year-old male presenting with confusion, suspected seizure. This was witnessed by staff in the waiting room, lasting less than 1 minute. By history it does sound that the patient had seizure activity at home prior to arrival. He is currently on Keppra with remote history of seizure disorder status post intracranial hemorrhage. Patient initially evaluated, mildly confused, alert and oriented 3, nonfocal neurologic exam. Head CT is obtained, this does show left frontal encephalomalacia, no acute intracranial hemorrhage. Patient has normal CBC, CMP shows creatinine 1.72 which is baseline for this patient. Otherwise electrolytes are within normal limits. Patient has recurrent seizure on emergency department lasting approximately 3 minutes. He is loaded with 1 g of Keppra, given IV Ativan. Patient will be transferred to [facility], accepting physician Dr. Escoto. - Lab Data Result diagrams: 02/14/19 19:45 02/14/19 19:45 Lab Results 02/14/19 02/14/19 02/14/19 Range/Units 19:45 19:45 19:45 WBC 6.3 (3.8-10.6) k/uL RBC 5.29 (4.30-5.90) m/uL Hgb 14.9 (13.0-17.5) gm/dL Hct 47.1 (39.0-53.0) % MCV 89.1 (80.0-100.0) fL MCH 28.1 (25.0-35.0) pg MCHC 31.6 (31.0-37.0) g/dL RDW 15.3 (11.5-15.5) % Plt Count 177 (150-450) k/uL Neutrophils % 67 % Lymphocytes % 21 % Monocytes % 6 % Eosinophils % 4 % Basophils % 1 % Neutrophils # 4.2 (1.3-7.7) k/uL Lymphocytes # 1.3 (1.0-4.8) k/uL Monocytes # 0.4 (0-1.0) k/uL Eosinophils # 0.3 (0-0.7) k/uL Basophils # 0.1 (0-0.2) k/uL PT 10.0 (9.0-12.0) sec INR 0.9 (<1.2) APTT 24.2 (22.0-30.0) sec Sodium 138 (137-145) mmol/L Potassium 4.8 (3.5-5.1) mmol/L Chloride 104 (98-107) mmol/L Carbon Dioxide 24 (22-30) mmol/L Anion Gap 10 mmol/L BUN 24 H (9-20) mg/dL Creatinine 1.72 H (0.66-1.25) mg/dL Est GFR (CKD-EPI)AfAm 43 (>60 ml/min/1.73 sqM) Est GFR (CKD-EPI)NonAf 38 (>60 ml/min/1.73 sqM) Glucose 208 H (74-99) mg/dL POC Glucose (mg/dL) (75-99) mg/dL POC Glu [employer] Operations Officer ID Plasma Lactic Acid [place] (0.7-2.0) mmol/L Calcium 9.6 (8.4-10.2) mg/dL Total Bilirubin 1.9 H (0.2-1.3) mg/dL AST 32 (17-59) U/L ALT 42 (21-72) U/L Alkaline Phosphatase 144 H (38-126) U/L Total Protein 7.4 (6.3-8.2) g/dL Albumin 4.3 (3.5-5.0) g/dL 02/14/19 02/14/19 Range/Units 19:45 20:03 WBC (3.8-10.6) k/uL RBC (4.30-5.90) m/uL Hgb (13.0-17.5) gm/dL Hct (39.0-53.0) % MCV (80.0-100.0) fL MCH (25.0-35.0) pg MCHC (31.0-37.0) g/dL RDW (11.5-15.5) % Plt Count (150-450) k/uL Neutrophils % % Lymphocytes % % Monocytes % % Eosinophils % % Basophils % % Neutrophils # (1.3-7.7) k/uL Lymphocytes # (1.0-4.8) k/uL Monocytes # (0-1.0) k/uL Eosinophils # (0-0.7) k/uL Basophils # (0-0.2) k/uL PT (9.0-12.0) sec INR (<1.2) APTT (22.0-30.0) sec Sodium (137-145) mmol/L Potassium (3.5-5.1) mmol/L Chloride (98-107) mmol/L Carbon Dioxide (22-30) mmol/L Anion Gap mmol/L BUN (9-20) mg/dL Creatinine (0.66-1.25) mg/dL Est GFR (CKD-EPI)AfAm (>60 ml/min/1.73 sqM) Est GFR (CKD-EPI)NonAf (>60 ml/min/1.73 sqM) Glucose (74-99) mg/dL POC Glucose (mg/dL) 227 H (75-99) mg/dL POC Glu [employer] Operations Officer ID Herlinda Ernandez Plasma Lactic Acid [place] 1.6 (0.7-2.0) mmol/L Calcium (8.4-10.2) mg/dL Total Bilirubin (0.2-1.3) mg/dL AST (17-59) U/L ALT (21-72) U/L Alkaline Phosphatase (38-126) U/L Total Protein (6.3-8.2) g/dL Albumin (3.5-5.0) g/dL Critical Care Time Critical Care Time: Yes Total Critical Care Time: 35 Disposition Clinical Impression: Altered mental status, Status epilepticus Disposition: OTHER INSTITUTION NOT DEFINED Condition: Stable Is patient prescribed a controlled substance at d/c from ED?: No Referrals: Romie Dominguez MD [Primary Care Provider] - 1-2 days Time of Disposition: 20:52 - Out of Hospital Transfer - Req. Specs Out of Hospital Transfer - Requested Specifics: Other Emergency Center (Transferred to [facility].)
[2019-02-14 20:04] LABS: Glucose,Whole Blood 227 mg/dL (75-99)
[2019-02-14 20:06] LABS: Basophils # (A) 0.1 k/uL (0-0.2); Basophils % (A) 1 %; Eosinophils # (A) 0.3 k/uL (0-0.7); Eosinophils % (A) 4 %; HCT 47.1 % (39.0-53.0); HGB 14.9 gm/dL (13.0-17.5); Lymphocytes # (A) 1.3 k/uL (1.0-4.8); Lymphocytes % (A) 21 %; MCH 28.1 pg (25.0-35.0); MCHC 31.6 g/dL (31.0-37.0); MCV 89.1 fL (80.0-100.0); Mean Platelet Volume 6.9; Monocytes # (A) 0.4 k/uL (0-1.0); Monocytes % (A) 6 %; Neutrophils # (A) 4.2 k/uL (1.3-7.7); Neutrophils % (A) 67 %; Platelet Count 177 k/uL (150-450); RBC 5.29 m/uL (4.30-5.90); RDW 15.3 % (11.5-15.5); WBC 6.3 k/uL (3.8-10.6)
[2019-02-14] MEDS ORDERED: LORazepam 2 MG/ML INJ IV STA (20:13)
[2019-02-14 20:16] LABS: Albumin 4.3 g/dL (3.5-5.0); Calcium 9.6 mg/dL (8.4-10.2); Potassium 4.8 mmol/L (3.5-5.1); Total Bilirubin 1.9 mg/dL (0.2-1.3); Total Protein 7.4 g/dL (6.3-8.2)
[2019-02-14 20:19] LABS: INR 0.9 (<1.2); Partial Thromboplastin Time 24.2 sec (22.0-30.0)
--- NOTE | 2019-02-14 20:37 | CT ---
EXAMINATION: CT brain wo con DATE AND TIME: 02/14/2019 8:13 PM CLINICAL INDICATION: PHH; altered mental status TECHNIQUE: Standard departmental protocol.; 1137.4; COMPARISON: 06/23/2015 CT FINDINGS: The calvarium is intact, and there is no intracranial hemorrhage. Previously seen left frontal lobe encephalomalacia pattern is redemonstrated. Prominent cisterna magna, congenital normal variant, is also redemonstrated. No definite new intra-axial or extra-axial attenuation defect. There is no intracranial mass or mass effect. The paranasal sinuses show scattered fluid and mucosal thickening, mild in degree. The middle ear cav ities and mastoid sinus air cells are clear. The orbits are unremarkable. IMPRESSION: NO ACUTE PROCESS.
--- NOTE | 2019-02-14 21:05 | XR ---
EXAMINATION: XR chest 1V portable DATE AND TIME: 02/14/2019 8:43 PM CLINICAL INDICATION: PHH; altered mental status TECHNIQUE: Departmental protocol COMPARISON: 12/28/2018 FINDINGS: The hemidiaphragms are elevated, consistent with low lung inflation at the moment of x-ray exposure. This does not allow visualization of the lower lobes. The lungs are clear. The pleural spaces are negative. The cardiac silhouette is not enlarged. The remainder of the mediastinal silhouette is unremarkable. The skeletal structures and soft tissues are negative for acute findings. IMPRESSION: NO ACUTE PROCESS.
[2019-02-14 22:26] VITALS: BP 155/80; PULSE 68; RESP 18; TEMP 98.8
== END 2019-02-14 22:26 | disposition short-term general hospital (02) ==
LOC: EC 19:12
DX: G40.901 Epilepsy, unspecified, not intractable, with status epilepticus (principal); R41.0 Disorientation, unspecified; S01.512A Laceration without foreign body of oral cavity, initial encounter; G93.89 Other specified disorders of brain; R14.0 Abdominal distension (gaseous); I13.10 Hypertensive heart and chronic kidney disease without heart failure, with stage 1 through stage 4 chronic kidney disease, or unspecified chronic kidney disease; N18.2 Chronic kidney disease, stage 2 (mild); E11.22 Type 2 diabetes mellitus with diabetic chronic kidney disease; E11.40 Type 2 diabetes mellitus with diabetic neuropathy, unspecified; I25.2 Old myocardial infarction; Z87.891 Personal history of nicotine dependence; Z91.041 Radiographic dye allergy status; Z79.84 Long term (current) use of oral hypoglycemic drugs; Z79.899 Other long term (current) drug therapy; Z85.528 Personal history of other malignant neoplasm of kidney; Z92.21 Personal history of antineoplastic chemotherapy; Z90.5 Acquired absence of kidney; Z95.5 Presence of coronary angioplasty implant and graft; Z86.73 Personal history of transient ischemic attack (TIA), and cerebral infarction without residual deficits; Z82.3 Family history of stroke; W50.3XXA Accidental bite by another person, initial encounter; W19.XXXA Unspecified fall, initial encounter
CPT/HCPCS: 99291; 96374; 96375; 36415; 93005; 80053; 80177; 83605; 85025; 85610; 85730; 71045; 70450; J2060; J1953

== ENCOUNTER 2019-03-02 00:22 | Emergency (ER) | payer OTHER, MEDICARE ==
--- NOTE | 2019-03-02 00:33 | ED ---
General Adult HPI - General Stated complaint: Altered Mental Status Time Seen by Provider: 03/02/19 00:29 - History of Present Illness Initial comments: Jose is a 78-year-old gentleman is brought to the emergency department today from his prison for evaluation of agitation. Per caregivers at the prison Jose is usually pleasant and cooperative, this evening he walked out of the room new, disassembled his Goyal catheter and was aggressive with staff. Even that he does have an indwelling Goyal catheter and this new aggression they were concerning may have a urinary tract infection and recommended transfer to the hospital for further evaluation. EMS reports the patient was agitated and combative with them. He did not want to cooperate with exam he did not want to be transported to the hospital. Upon arrival the patient was initially agitated and not cooperative with exam however she calmed down and was apologetic. He states that he is aggravated he doesn't want have a catheter he doesn't feel like he should be in a prison he got in an argument with his because she will let him come home because she feels he needs medical care and he does not feel that he needs medical care. Patient states that he is sorry for being uncooperative and that he just feels that he should have to have a catheter. - Related Data Home Medications Medication Instructions Recorded Confirmed Atenolol [Tenormin] 50 mg PO BID 06/23/15 12/28/18 Cabozantinib S-Malate [Cabometyx] 40 mg PO DAILY 02/20/18 12/28/18 Losartan [Cozaar] 50 mg PO BID 02/20/18 12/28/18 cloNIDine HCL [Catapres] 0.2 mg PO BID 02/20/18 12/30/18 glipiZIDE [Glucotrol] 10 mg PO AC-BID 02/20/18 12/28/18 levETIRAcetam [Keppra] 250 mg PO Q12HR 02/20/18 12/28/18 Previous Rx's Medication Instructions Recorded Aspirin 81 mg PO DAILY #30 chew 12/30/18 Atorvastatin [Lipitor] 40 mg PO HS #30 tab 12/30/18 Nitroglycerin Sl Tabs [Nitrostat] 0.4 mg SUBLINGUAL Q5M PRN #25 tab 12/30/18 Ticagrelor [Brilinta] 90 mg PO BID #60 tab 12/30/18 Sulfamethox-Tmp 800-160Mg [Bactrim 1 tab PO Q12HR #14 tab 03/02/19 DS 800-160 mg] Allergies Allergy/AdvReac Type Severity Reaction Status Date / Time Iodinated Contrast- Oral and AdvReac KIDNEY Verified 02/14/19 20:05 IV Dye Review of Systems ROS Statement: Those systems with pertinent positive or pertinent negative responses have been documented in the HPI. ROS Other: All systems not noted in ROS Statement are negative. Past Medical History Past Medical History: Chest Pain / Angina, Diabetes Mellitus, Hypertension Additional Past Medical History / Comment(s): 06/23/15 Pt presented to [facility] ER via EMS with having confusion, some apasia and diaphoreis at home in the night. He also rolled out of bed. His spouse called EMS and in transport symptoms resolved. Other HX: Post hernia repair-pt states he had brain bleed and was transferred from [facility] to [facility]-he had to learn to perform all ADLs again-also had seizures for a short time after the brain bleed but none since 2011. 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-tx with R nephrectomy and chemo in 2012 at [facility], Stage II chronic kidney disease, hypertensive cardiovascular disease with LVH, diabetic neuropathy with low back and L leg pain, BPH Last Myocardial Infarction Date:: 1999 History of Any Multi-Drug Resistant Organisms: None Reported Past Surgical History: Cholecystectomy, Heart Catheterization With Stent Additional Past Surgical History / Comment(s): Nephrectomy Past Anesthesia/Blood Transfusion Reactions: No Reported Reaction Date of Last Stent Placement:: 2005 Past Psychological History: No Psychological Hx Reported Smoking Status: Former smoker Past Alcohol Use History: None Reported Past Drug Use History: None Reported - Past Family History Brother(s) Family Medical History: Myocardial Infarction ([place]) Additional Family Medical History / Comment(s): at age 82 Father Family Medical History: Asthma, Coronary Artery Disease (CAD) Additional Family Medical History / Comment(s): at age 82 Mother Family Medical History: CVA/TIA Additional Family Medical History / Comment(s): CVA X 2. at age 61 General Exam - General Exam Comments Initial Comments: Physical Exam GENERAL: Patient is well-developed and well-nourished. Patient is nontoxic and well- hydrated and is in no distress. HENT: Normocephalic, Atraumatic. EYES: PERRL, EOMI PULMONARY: Unlabored respirations. No audible rales rhonchi or wheezing was noted. CARDIOVASCULAR: There is a regular rate and rhythm without any murmurs gallops or rubs. ABDOMEN: Soft and nontender with normal bowel sounds. SKIN: Skin is clear with no lesions or rashes and otherwise unremarkable. : Indwelling goyal catheter NEUROLOGIC: Patient is alert and oriented to person, place and year. Moving all extremities spontaneously MUSCULOSKELETAL: Normal extremities with adequate strength and full range of motion. No lower extremity swelling or edema. No calf tenderness. PSYCHIATRIC: Normal psychiatric evaluation. Limitations: no limitations Course Vital Signs 03/02/19 03/02/19 00:33 03:27 Temperature 97.8 F 98.2 F Pulse Rate 72 78 Respiratory 18 17 Rate Blood Pressure 161/82 141/87 O2 Sat by Pulse 96 97 Oximetry EKG Findings - EKG Comments: EKG Findings:: EKG was obtained at 1256, rate is 77 rhythm is sinus there is a short axis, normal intervals, W[place] 196, QRS 88, QTC is 432 there is no acute ST elevations or depressions evidence of acute ischemia or infarction Medical Decision Making - Medical Decision Making Patient was seen and evaluated history was obtained from the patient and EMS Patient presented combative and agitated from prison he does have an indwelling Goyal there is concern for urinary tract infection causing delirium however patient does have a history of brain bleed in the past therefore imaging also be obtained Labs were reviewed, patient does have a urinary tract infection Rocephin was ordered CT head no acute findings Patient became calm and cooperative he is awake alert and oriented he was apologetic for his belligerent behavior. At this time I feel the patient is likely stable for discharge back to prison with oral antibiotics for UTI causing some agitation. I do believe most the patient's agitation was due to discomfort from the catheter and the urinary tract infection and not delirium. - Lab Data Result diagrams: 03/02/19 00:57 03/02/19 00:57 Lab Results 03/02/19 03/02/19 03/02/19 Range/Units 00:43 00:57 00:57 WBC 9.3 (3.8-10.6) k/uL RBC 4.28 L (4.30-5.90) m/uL Hgb 12.4 L (13.0-17.5) gm/dL Hct 36.7 L (39.0-53.0) % MCV 85.8 (80.0-100.0) fL MCH 28.9 (25.0-35.0) pg MCHC 33.6 (31.0-37.0) g/dL RDW 17.3 H (11.5-15.5) % Plt Count 205 (150-450) k/uL Neutrophils % 84 % Lymphocytes % 8 % Monocytes % 5 % Eosinophils % 2 % Basophils % 0 % Neutrophils # 7.8 H (1.3-7.7) k/uL Lymphocytes # 0.7 L (1.0-4.8) k/uL Monocytes # 0.5 (0-1.0) k/uL Eosinophils # 0.2 (0-0.7) k/uL Basophils # 0.0 (0-0.2) k/uL Anisocytosis Slight Sodium 136 L (137-145) mmol/L Potassium 5.1 (3.5-5.1) mmol/L Chloride 108 H (98-107) mmol/L Carbon Dioxide 19 L (22-30) mmol/L Anion Gap 9 mmol/L BUN 35 H (9-20) mg/dL Creatinine 1.58 H (0.66-1.25) mg/dL Est GFR (CKD-EPI)AfAm 48 (>60 ml/min/1.73 sqM) Est GFR (CKD-EPI)NonAf 42 (>60 ml/min/1.73 sqM) Glucose 209 H (74-99) mg/dL POC Glucose (mg/dL) 227 H (75-99) mg/dL POC Glu Business Area Director ID Yeimi Lee Calcium 9.4 (8.4-10.2) mg/dL Total Bilirubin 0.4 (0.2-1.3) mg/dL AST 26 (17-59) U/L ALT 31 (21-72) U/L Alkaline Phosphatase 99 (38-126) U/L Total Protein 6.2 L (6.3-8.2) g/dL Albumin 3.3 L (3.5-5.0) g/dL Urine Color Urine Appearance (Clear) Urine pH (5.0-8.0) Ur Specific [place] (1.001-1.035) Urine Protein (Negative) Urine Glucose (UA) (Negative) Urine Ketones (Negative) Urine Blood (Negative) Urine Nitrite (Negative) Urine Bilirubin (Negative) Urine Urobilinogen (<2.0) mg/dL Ur Leukocyte Esterase (Negative) Urine RBC (0-5) /hpf Urine WBC (0-5) /hpf Urine WBC Clumps (None) /hpf Ur Squamous Epith Cells (0-4) /hpf Amorphous Sediment (None) /hpf Urine Bacteria (None) /hpf Hyaline Casts (0-2) /lpf Urine Mucus (None) /hpf 03/02/19 Range/Units 00:57 WBC (3.8-10.6) k/uL RBC (4.30-5.90) m/uL Hgb (13.0-17.5) gm/dL Hct (39.0-53.0) % MCV (80.0-100.0) fL MCH (25.0-35.0) pg MCHC (31.0-37.0) g/dL RDW (11.5-15.5) % Plt Count (150-450) k/uL Neutrophils % % Lymphocytes % % Monocytes % % Eosinophils % % Basophils % % Neutrophils # (1.3-7.7) k/uL Lymphocytes # (1.0-4.8) k/uL Monocytes # (0-1.0) k/uL Eosinophils # (0-0.7) k/uL Basophils # (0-0.2) k/uL Anisocytosis Sodium (137-145) mmol/L Potassium (3.5-5.1) mmol/L Chloride (98-107) mmol/L Carbon Dioxide (22-30) mmol/L Anion Gap mmol/L BUN (9-20) mg/dL Creatinine (0.66-1.25) mg/dL Est GFR (CKD-EPI)AfAm (>60 ml/min/1.73 sqM) Est GFR (CKD-EPI)NonAf (>60 ml/min/1.73 sqM) Glucose (74-99) mg/dL POC Glucose (mg/dL) (75-99) mg/dL POC Glu Business Area Director ID Calcium (8.4-10.2) mg/dL Total Bilirubin (0.2-1.3) mg/dL AST (17-59) U/L ALT (21-72) U/L Alkaline Phosphatase (38-126) U/L Total Protein (6.3-8.2) g/dL Albumin (3.5-5.0) g/dL Urine Color Yellow Urine Appearance Cloudy (Clear) Urine pH 5.5 (5.0-8.0) Ur Specific [place] 1.019 (1.001-1.035) Urine Protein 1+ H (Negative) Urine Glucose (UA) Negative (Negative) Urine Ketones Negative (Negative) Urine Blood Moderate H (Negative) Urine Nitrite Positive (Negative) Urine Bilirubin Negative (Negative) Urine Urobilinogen <2.0 (<2.0) mg/dL Ur Leukocyte Esterase Large H (Negative) Urine RBC >182 H (0-5) /hpf Urine WBC 21 H (0-5) /hpf Urine WBC Clumps Rare H (None) /hpf Ur Squamous Epith Cells 2 (0-4) /hpf Amorphous Sediment Rare H (None) /hpf Urine Bacteria Few H (None) /hpf Hyaline Casts 3 H (0-2) /lpf Urine Mucus Rare H (None) /hpf Disposition Clinical Impression: UTI (urinary tract infection) Disposition: HOME SELF-CARE Condition: Stable Prescriptions: Sulfamethox-Tmp 800-160Mg [Bactrim DS 800-160 mg] 1 tab PO Q12HR #14 tab Is patient prescribed a controlled substance at d/c from ED?: No Referrals: Tony Thacker DO [Primary Care Provider] - 1-2 days
[2019-03-02 00:45] LABS: Glucose,Whole Blood 227 mg/dL (75-99)
[2019-03-02 01:05] LABS: Anisocytosis Slight; Basophils % (A) 0 %; Eosinophils # (A) 0.2 k/uL (0-0.7); Eosinophils % (A) 2 %; HCT 36.7 % (39.0-53.0); HGB 12.4 gm/dL (13.0-17.5); Lymphocytes # (A) 0.7 k/uL (1.0-4.8); Lymphocytes % (A) 8 %; MCH 28.9 pg (25.0-35.0); MCHC 33.6 g/dL (31.0-37.0); MCV 85.8 fL (80.0-100.0); Mean Platelet Volume 9.5; Monocytes # (A) 0.5 k/uL (0-1.0); Monocytes % (A) 5 %; Neutrophils # (A) 7.8 k/uL (1.3-7.7); Neutrophils % (A) 84 %; Platelet Count 205 k/uL (150-450); RBC 4.28 m/uL (4.30-5.90); RDW 17.3 % (11.5-15.5); WBC 9.3 k/uL (3.8-10.6)
[2019-03-02 01:16] LABS: Albumin 3.3 g/dL (3.5-5.0); Calcium 9.4 mg/dL (8.4-10.2); Potassium 5.1 mmol/L (3.5-5.1); Total Bilirubin 0.4 mg/dL (0.2-1.3); Total Protein 6.2 g/dL (6.3-8.2)
[2019-03-02 01:33] LABS: Amorphous Sediment,Urine Rare /hpf; Appearance,Urine Cloudy (Clear); Bacteria,Urine Few /hpf; Bilirubin,Urine Negative (Negative); Blood,Urine Moderate (Negative); Color,Urine Yellow; Glucose,Urine (UA) Negative (Negative); Hyaline Casts,Urine 3 /lpf (0-2); Ketones,Urine Negative (Negative); Leukocyte Esterase,Urine Large (Negative); Mucus,Urine Rare /hpf; Nitrite,Urine Positive (Negative); PH, Urine 5.5 (5.0-8.0); Protein,Urine 1+ (Negative); RBC,Urine >182 /hpf (0-5); Specific Gravity,Urine 1.019 (1.001-1.035); Squamous Epithelial Cell,Urine 2 /hpf (0-4); Urobilinogen,Urine <2.0 mg/dL (<2.0); WBC,Urine 21 /hpf (0-5)
--- NOTE | 2019-03-02 02:13 | CT ---
EXAM: CT Head Without Intravenous Contrast CLINICAL HISTORY: ITS.REASON CT Reason: mental status chance TECHNIQUE: Axial computed tomography images of the head/brain without intravenous contrast. CTDI is 49 mGy and DLP is 1095 axial mGy-cm. This CT exam was performed using one or more of the following dose reduction techniques: automated exposure control, adjustment of the mA and/or kV according to patient size, and/or use of iterative reconstruction technique. COMPARISON: 02/14/19 CT head FINDINGS: Brain: No hemorrhage, large hypodensity, or mass effect. Unchanged encephalomalacia in the left frontal lobe. Ventricles: No hydrocephalus. Bones/joints: Unremarkable. Soft tissues: Unremarkable. Sinuses: Mild mucosal thickening of the ethmoid sinuses. Small osteomas are seen in the left ethmoid air cells. Mastoid air cells: Clear. IMPRESSION: No acute hemorrhage, hydrocephalus, or mass effect.
[2019-03-02 03:28] VITALS: BP 141/87; PULSE 78; RESP 17; TEMP 98.2
[2019-03-02] MEDS ORDERED: cefTRIAXone IN SWFI 1,000 MG/10 ML SYRINGE IVP STA (03:28)
== END 2019-03-02 04:15 | disposition home or self-care (01) ==
LOC: EC 00:22
DX: N39.0 Urinary tract infection, site not specified (principal); R45.1 Restlessness and agitation; R41.82 Altered mental status, unspecified; E11.40 Type 2 diabetes mellitus with diabetic neuropathy, unspecified; I25.2 Old myocardial infarction; I20.9 Angina pectoris, unspecified; I13.10 Hypertensive heart and chronic kidney disease without heart failure, with stage 1 through stage 4 chronic kidney disease, or unspecified chronic kidney disease; N18.2 Chronic kidney disease, stage 2 (mild); E11.22 Type 2 diabetes mellitus with diabetic chronic kidney disease; Z86.73 Personal history of transient ischemic attack (TIA), and cerebral infarction without residual deficits; Z85.528 Personal history of other malignant neoplasm of kidney; Z90.5 Acquired absence of kidney; Z92.21 Personal history of antineoplastic chemotherapy; Z90.49 Acquired absence of other specified parts of digestive tract; Z95.5 Presence of coronary angioplasty implant and graft; Z87.891 Personal history of nicotine dependence; R56.9 Unspecified convulsions; Z79.84 Long term (current) use of oral hypoglycemic drugs; Z79.899 Other long term (current) drug therapy; Z91.041 Radiographic dye allergy status
CPT/HCPCS: 36415; 93005; 80053; 85025; 81001; 87086; 70450; 99285; 96374; J0696; 87077; 87186

== ENCOUNTER 2019-03-03 03:03 | Emergency (ER) | payer OTHER, MEDICARE ==
[2019-03-03 03:08] VITALS: TEMP 98.9
[2019-03-03 05:53] VITALS: BP 167/87; PULSE 73; RESP 20
--- NOTE | 2019-03-03 06:32 | ED ---
General Adult HPI - General Chief complaint: Recheck/Abnormal Lab/Rx Stated complaint: Change in mental status Time Seen by Provider: 03/03/19 03:12 Source: patient, EMS Mode of arrival: EMS Limitations: no limitations - History of Present Illness Initial comments: Patient is 78-year-old man who is a resident of snf, sent here to have a psychiatric evaluation after he reportedly was being confrontational with staff there. It was reported that the patient had been in his room and wanted to sleep completely naked. When the staff asked him to put some clothing on, patient became argumentative and was not cooperative and therefore sent him here for evaluation. The patient is denying suicidal or homicidal ideation. He does reportedly have urinary tract infection and is making treated for that -: hour(s) Severity scale (1-10): 0 Improves with: none Worsens with: none Associated Symptoms: denies other symptoms Treatments Prior to Arrival: none - Related Data Home Medications Medication Instructions Recorded Confirmed Atenolol [Tenormin] 25 mg PO BID 06/23/15 03/03/19 levETIRAcetam [Keppra] 1,000 mg PO Q12HR 02/20/18 03/03/19 Calcium Carb-Vit D 500Mg-200Un 1 tab PO DAILY 03/03/19 03/03/19 [Oscal 500+D] Cholecalciferol [Vitamin D3] 1,000 unit PO DAILY 03/03/19 03/03/19 Insulin Glargine [Lantus] 20 unit SQ W/BRKFST 03/03/19 03/03/19 Lacosamide [Vimpat] 300 mg PO BID 03/03/19 03/03/19 Lisinopril 20 mg PO Q12H 03/03/19 03/03/19 Phenytoin Sodium Extended 200 mg PO BID 03/03/19 03/03/19 [Dilantin] Tamsulosin [Flomax] 0.4 mg PO DAILY 03/03/19 03/03/19 Topiramate [Topamax] 100 mg PO BID 03/03/19 03/03/19 amLODIPine BESYLATE [Norvasc] 5 mg PO DAILY 03/03/19 03/03/19 hydrOXYzine HCL [Atarax] 10 mg PO Q8H PRN 03/03/19 03/03/19 sitaGLIPtin PHOSPHATE [Januvia] 100 mg PO DAILY 03/03/19 03/03/19 Previous Rx's Medication Instructions Recorded Aspirin 81 mg PO DAILY #30 chew 12/30/18 Atorvastatin [Lipitor] 40 mg PO HS #30 tab 12/30/18 Ticagrelor [Brilinta] 90 mg PO BID #60 tab 12/30/18 Sulfamethox-Tmp 800-160Mg [Bactrim 1 tab PO Q12HR #14 tab 03/02/19 DS 800-160 mg] Allergies Allergy/AdvReac Type Severity Reaction Status Date / Time Iodinated Contrast- Oral and AdvReac KIDNEY Verified 03/03/19 17:34 IV Dye Review of Systems ROS Statement: Those systems with pertinent positive or pertinent negative responses have been documented in the HPI. ROS Other: All systems not noted in ROS Statement are negative. Constitutional: Denies: fever Respiratory: Denies: cough, dyspnea Cardiovascular: Denies: chest pain Gastrointestinal: Denies: abdominal pain, vomiting Genitourinary: Reports: hematuria. Denies: dysuria Neurological: Denies: headache Psychiatric: Denies: auditory hallucinations, visual hallucinations, homicidal thoughts, suicidal thoughts Past Medical History Past Medical History: Chest Pain / Angina, Diabetes Mellitus, Hypertension Additional Past Medical History / Comment(s): 06/23/15 Pt presented to [facility] ER via EMS with having confusion, some apasia and diaphoreis at home in the night. He also rolled out of bed. His spouse called EMS and in transport symptoms resolved. Other HX: Post hernia repair-pt states he had brain bleed and was transferred from [facility] to [facility]-he had to learn to perform all ADLs again-also had seizures for a short time after the brain bleed but none since 2012. 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-tx with R nephrectomy and chemo in 2012 at [facility], Stage II chronic kidney disease, hypertensive cardiovascular disease with LVH, diabetic neuropathy with low back and L leg pain, BPH Last Myocardial Infarction Date:: 1999 History of Any Multi-Drug Resistant Organisms: None Reported Past Surgical History: Cholecystectomy, Heart Catheterization With Stent Additional Past Surgical History / Comment(s): Nephrectomy Past Anesthesia/Blood Transfusion Reactions: No Reported Reaction Date of Last Stent Placement:: 2005 Past Psychological History: No Psychological Hx Reported Smoking Status: Former smoker Past Alcohol Use History: None Reported Past Drug Use History: None Reported - Past Family History Brother(s) Family Medical History: Myocardial Infarction ([place]) Additional Family Medical History / Comment(s): at age 82 Father Family Medical History: Asthma, Coronary Artery Disease (CAD) Additional Family Medical History / Comment(s): at age 82 Mother Family Medical History: CVA/TIA Additional Family Medical History / Comment(s): CVA X 2. at age 61 General Exam Limitations: no limitations General appearance: alert, in no apparent distress Head exam: Present: atraumatic, normocephalic Eye exam: Present: normal appearance Respiratory exam: Present: normal lung sounds bilaterally. Absent: respiratory distress, wheezes, rales, rhonchi, stridor Cardiovascular Exam: Present: regular rate, normal rhythm, normal heart sounds GI/Abdominal exam: Present: soft. Absent: distended, tenderness, guarding, rebound, rigid Extremities exam: Present: normal inspection, normal capillary refill Neurological exam: Present: alert. Absent: motor sensory deficit Psychiatric exam: Present: normal affect. Absent: depressed, agitated, homicidal ideation, suicidal ideation Skin exam: Present: warm, dry, intact, normal color. Absent: rash Course Vital Signs 03/03/19 03/03/19 03:06 05:52 Temperature 98.9 F Pulse Rate 66 73 Respiratory 18 20 Rate Blood Pressure 159/86 167/87 O2 Sat by Pulse 98 99 Oximetry Medical Decision Making - Medical Decision Making Patient is 78-year-old man sent here to have psychiatric evaluation. He is medically cleared and is seen by behavioral health. At this point the patient alert and cooperative. Will prescribe a small number of Ativan that can be used should he have some agitation. Currently stable to go back to the sn[facility] Disposition Clinical Impression: UTI (urinary tract infection), Altered mental status Disposition: HOME SELF-CARE Condition: Fair Instructions (If sedation given, give patient instructions): Urinary Tract Infection in Men (ED), Altered Mental Status (ED) Is patient prescribed a controlled substance at d/c from ED?: No Referrals: Tony Thacker DO [Primary Care Provider] - 1-2 days
--- NOTE | 2019-03-05 06:39 | CDI ---
Documentation Clarification OP Dear Rodrigo PINEDA MD Please do addendum to ED report for missing HPI and Physical examination. Thank you, Nanci Funk Recreation Therapy Teacher If you have any questions, please contact Condenser Operator at [phone] [facility]
== END 2019-03-03 07:25 | disposition home or self-care (01) ==
LOC: EC 03:03
DX: R41.82 Altered mental status, unspecified (principal); N39.0 Urinary tract infection, site not specified; I13.10 Hypertensive heart and chronic kidney disease without heart failure, with stage 1 through stage 4 chronic kidney disease, or unspecified chronic kidney disease; E11.22 Type 2 diabetes mellitus with diabetic chronic kidney disease; N18.2 Chronic kidney disease, stage 2 (mild); E11.40 Type 2 diabetes mellitus with diabetic neuropathy, unspecified; R56.9 Unspecified convulsions; Z85.528 Personal history of other malignant neoplasm of kidney; Z90.5 Acquired absence of kidney; Z92.21 Personal history of antineoplastic chemotherapy; Z95.5 Presence of coronary angioplasty implant and graft; Z87.891 Personal history of nicotine dependence; Z79.4 Long term (current) use of insulin; Z79.899 Other long term (current) drug therapy; Z91.041 Radiographic dye allergy status
CPT/HCPCS: 99285

== ENCOUNTER 2019-03-03 15:36 | Inpatient (IN) | payer OTHER, MEDICARE ==
[2019-03-03] MEDS ORDERED: ONDANSETRON 4 MG/2 ML VIAL IVP STA (15:47)
[2019-03-03] MEDS ORDERED: PANTOPRAZOLE 40 MG/10 ML VIAL IVP STA (15:47)
[2019-03-03] MEDS ORDERED: SODIUM CHLORIDE 0.9% 1,000 ML IV STA ×2 (15:47)
[2019-03-03 16:06] LABS: Basophils % (A) 0 %; Eosinophils # (A) 0.1 k/uL (0-0.7); Eosinophils % (A) 1 %; HCT 33.1 % (39.0-53.0); HGB 11.2 gm/dL (13.0-17.5); Lymphocytes # (A) 0.4 k/uL (1.0-4.8); Lymphocytes % (A) 4 %; MCH 29.3 pg (25.0-35.0); MCHC 33.9 g/dL (31.0-37.0); MCV 86.4 fL (80.0-100.0); Mean Platelet Volume 7.1; Monocytes # (A) 0.6 k/uL (0-1.0); Monocytes % (A) 5 %; Neutrophils # (A) 9.2 k/uL (1.3-7.7); Neutrophils % (A) 89 %; Platelet Count 321 k/uL (150-450); RBC 3.84 m/uL (4.30-5.90); RDW 15.8 % (11.5-15.5); WBC 10.4 k/uL (3.8-10.6)
[2019-03-03 16:14] LABS: INR 0.9 (<1.2); Partial Thromboplastin Time 23.8 sec (22.0-30.0); Prothrombin Time 10.2 sec (9.0-12.0)
--- NOTE | 2019-03-03 16:21 | ED ---
GI Bleed HPI - General Chief complaint: GI Bleed Stated complaint: hematemesis Time Seen by Provider: 03/03/19 15:44 Source: EMS, RN notes reviewed, old records reviewed Mode of arrival: EMS Limitations: altered mental status - History of Present Illness Initial comments: This is a 78-year-old male the ER for evaluation. This patient presents today for evaluation regards to vomiting blood. Patient is a poor strain, history obtained from patient's chart and transfer paperwork. Patient unsure of why he is in hospital. Per staff and congestion. Patient's of vomiting of dark coffee-ground emesis throat the day. MD complaint: coffee ground emesis -: unknown Radiation: none Consistency: constant Improves with: none Worsens with: none Context: history of GI bleed Associated Symptoms: nausea, vomiting, weakness - Related Data Home Medications Medication Instructions Recorded Confirmed Atenolol [Tenormin] 25 mg PO BID 06/23/15 03/03/19 levETIRAcetam [Keppra] 1,000 mg PO Q12HR 02/20/18 03/03/19 Calcium Carb-Vit D 500Mg-200Un 1 tab PO DAILY 03/03/19 03/03/19 [Oscal 500+D] Cholecalciferol [Vitamin D3] 1,000 unit PO DAILY 03/03/19 03/03/19 Insulin Glargine [Lantus] 20 unit SQ W/BRKFST 03/03/19 03/03/19 Lacosamide [Vimpat] 300 mg PO BID 03/03/19 03/03/19 Lisinopril 20 mg PO Q12H 03/03/19 03/03/19 Phenytoin Sodium Extended 200 mg PO BID 03/03/19 03/03/19 [Dilantin] Tamsulosin [Flomax] 0.4 mg PO DAILY 03/03/19 03/03/19 Topiramate [Topamax] 100 mg PO BID 03/03/19 03/03/19 amLODIPine BESYLATE [Norvasc] 5 mg PO DAILY 03/03/19 03/03/19 hydrOXYzine HCL [Atarax] 10 mg PO Q8H PRN 03/03/19 03/03/19 sitaGLIPtin PHOSPHATE [Januvia] 100 mg PO DAILY 03/03/19 03/03/19 Previous Rx's Medication Instructions Recorded Aspirin 81 mg PO DAILY #30 chew 12/30/18 Atorvastatin [Lipitor] 40 mg PO HS #30 tab 12/30/18 Ticagrelor [Brilinta] 90 mg PO BID #60 tab 12/30/18 Sulfamethox-Tmp 800-160Mg [Bactrim 1 tab PO Q12HR #14 tab 03/02/19 DS 800-160 mg] Allergies Allergy/AdvReac Type Severity Reaction Status Date / Time Iodinated Contrast- Oral and AdvReac KIDNEY Verified 03/03/19 17:34 IV Dye Review of Systems ROS Statement: Those systems with pertinent positive or pertinent negative responses have been documented in the HPI. ROS Other: All systems not noted in ROS Statement are negative. Past Medical History Past Medical History: Chest Pain / Angina, Diabetes Mellitus, Hypertension Additional Past Medical History / Comment(s): 06/23/15 Pt presented to [facility] ER v ia EMS with having confusion, some apasia and diaphoreis at home in the night. He also rolled out of bed. His spouse called EMS and in transport symptoms resolved. Other HX: Post hernia repair-pt states he had brain bleed and was transferred from [facility] to [facility]-he had to learn to perform all ADLs again-also had seizures for a short time after the brain bleed but none since 2011. 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-tx with R nephrectomy and chemo in 2011 at [facility], Stage II chronic kidney disease, hypertensive cardiovascular disease with LVH, diabetic neuropathy with low back and L leg pain, BPH Last Myocardial Infarction Date:: 1999 History of Any Multi-Drug Resistant Organisms: None Reported Past Surgical History: Cholecystectomy, Heart Catheterization With Stent Additional Past Surgical History / Comment(s): Nephrectomy Past Anesthesia/Blood Transfusion Reactions: No Reported Reaction Date of Last Stent Placement:: 2005 Past Psychological History: No Psychological Hx Reported Smoking Status: Former smoker Past Alcohol Use History: None Reported Past Drug Use History: None Reported - Past Family History Brother(s) Family Medical History: Myocardial Infarction (DC) Additional Family Medical History / Comment(s): at age 82 Father Family Medical History: Asthma, Coronary Artery Disease (CAD) Additional Family Medical History / Comment(s): at age 82 Mother Family Medical History: CVA/TIA Additional Family Medical History / Comment(s): CVA X 2. at age 61 General Exam Limitations: altered mental status General appearance: alert, in no apparent distress Head exam: Present: atraumatic, normocephalic, normal inspection Eye exam: Present: normal appearance, PERRL, EOMI. Absent: scleral icterus, conjunctival injection, periorbital swelling ENT exam: Present: normal exam, mucous membranes moist Neck exam: Present: normal inspection. Absent: tenderness, meningismus, lymphadenopathy Respiratory exam: Present: normal lung sounds bilaterally. Absent: respiratory distress, wheezes, rales, rhonchi, stridor Cardiovascular Exam: Present: regular rate, normal rhythm, normal heart sounds. Absent: systolic murmur, diastolic murmur, rubs, gallop, clicks GI/Abdominal exam: Present: soft, normal bowel sounds. Absent: distended, tenderness, guarding, rebound, rigid Extremities exam: Present: normal inspection, full ROM, normal capillary refill. Absent: tenderness, pedal edema, joint swelling, calf tenderness Back exam: Present: normal inspection Neurological exam: Present: alert, oriented X3, CN II-XII intact Psychiatric exam: Present: normal affect, normal mood Skin exam: Present: warm, dry, intact, normal color. Absent: rash Course Vital Signs 03/03/19 03/03/19 03/03/19 15:43 16:16 16:30 Temperature 97.6 F Pulse Rate 72 64 72 Respiratory 16 20 16 Rate Blood Pressure 145/75 155/83 155/83 O2 Sat by Pulse 97 98 98 Oximetry 03/03/19 03/03/19 17:00 17:30 Temperature Pulse Rate 73 58 L Respiratory 15 15 Rate Blood Pressure 144/83 123/77 O2 Sat by Pulse 100 99 Oximetry - Reevaluation(s) Reevaluation #1: 03/03/19 18:09 Medical records reviewed Reevaluation #2: 03/03/19 18:09 he continues to vomit blood here in the ER Medical Decision Making - Medical Decision Making 78 male the ER for evaluation. Positive upper GI bleed. Patient is vomiting blood. Patient will be admitted for monitoring of hemoglobin - Lab Data Result diagrams: 03/03/19 15:49 03/03/19 15:49 Lab Results 03/03/19 03/03/19 03/03/19 Range/Units 15:49 15:49 15:49 WBC 10.4 (3.8-10.6) k/uL RBC 3.84 L (4.30-5.90) m/uL Hgb 11.2 L (13.0-17.5) gm/dL Hct 33.1 L (39.0-53.0) % MCV 86.4 (80.0-100.0) fL MCH 29.3 (25.0-35.0) pg MCHC 33.9 (31.0-37.0) g/dL RDW 15.8 H (11.5-15.5) % Plt Count 321 (150-450) k/uL Neutrophils % 89 % Lymphocytes % 4 % Monocytes % 5 % Eosinophils % 1 % Basophils % 0 % Neutrophils # 9.2 H (1.3-7.7) k/uL Lymphocytes # 0.4 L (1.0-4.8) k/uL Monocytes # 0.6 (0-1.0) k/uL Eosinophils # 0.1 (0-0.7) k/uL Basophils # 0.0 (0-0.2) k/uL PT (9.0-12.0) sec INR (<1.2) APTT (22.0-30.0) sec Sodium 134 L (137-145) mmol/L Potassium 5.3 H (3.5-5.1) mmol/L Chloride 108 H (98-107) mmol/L Carbon Dioxide 17 L (22-30) mmol/L Anion Gap 9 mmol/L BUN 33 H (9-20) mg/dL Creatinine 1.90 H (0.66-1.25) mg/dL Est GFR (CKD-EPI)AfAm 38 (>60 ml/min/1.73 sqM) Est GFR (CKD-EPI)NonAf 33 (>60 ml/min/1.73 sqM) Glucose 178 H (74-99) mg/dL Calcium 9.3 (8.4-10.2) mg/dL Magnesium 2.0 (1.6-2.3) mg/dL Total Bilirubin 0.3 (0.2-1.3) mg/dL AST 30 (17-59) U/L ALT 38 (21-72) U/L Alkaline Phosphatase 98 (38-126) U/L Ammonia 11 (<30) umol/L Troponin I (0.000-0.034) ng/mL Total Protein 5.8 L (6.3-8.2) g/dL Albumin 3.1 L (3.5-5.0) g/dL Lipase 363 H (23-300) U/L Gastric Occult Blood (Negative) Blood Type Blood Type Recheck Antibody Screen Spec Expiration Date 03/03/19 03/03/19 03/03/19 Range/Units 15:49 15:49 15:49 WBC (3.8-10.6) k/uL RBC (4.30-5.90) m/uL Hgb (13.0-17.5) gm/dL Hct (39.0-53.0) % MCV (80.0-100.0) fL MCH (25.0-35.0) pg MCHC (31.0-37.0) g/dL RDW (11.5-15.5) % Plt Count (150-450) k/uL Neutrophils % % Lymphocytes % % Monocytes % % Eosinophils % % Basophils % % Neutrophils # (1.3-7.7) k/uL Lymphocytes # (1.0-4.8) k/uL Monocytes # (0-1.0) k/uL Eosinophils # (0-0.7) k/uL Basophils # (0-0.2) k/uL PT 10.2 (9.0-12.0) sec INR 0.9 (<1.2) APTT 23.8 (22.0-30.0) sec Sodium (137-145) mmol/L Potassium (3.5-5.1) mmol/L Chloride (98-107) mmol/L Carbon Dioxide (22-30) mmol/L Anion Gap mmol/L BUN (9-20) mg/dL Creatinine (0.66-1.25) mg/dL Est GFR (CKD-EPI)AfAm (>60 ml/min/1.73 sqM) Est GFR (CKD-EPI)NonAf (>60 ml/min/1.73 sqM) Glucose (74-99) mg/dL Calcium (8.4-10.2) mg/dL Magnesium (1.6-2.3) mg/dL Total Bilirubin (0.2-1.3) mg/dL AST (17-59) U/L ALT (21-72) U/L Alkaline Phosphatase (38-126) U/L Ammonia (<30) umol/L Troponin I <0.012 (0.000-0.034) ng/mL Total Protein (6.3-8.2) g/dL Albumin (3.5-5.0) g/dL Lipase (23-300) U/L Gastric Occult Blood (Negative) Blood Type O Positive Blood Type Recheck No Antibody Screen NEGATIVE Spec Expiration Date 03/06/2019 - 234803/03/19 Range/Units 17:50 WBC (3.8-10.6) k/uL RBC (4.30-5.90) m/uL Hgb (13.0-17.5) gm/dL Hct (39.0-53.0) % MCV (80.0-100.0) fL MCH (25.0-35.0) pg MCHC (31.0-37.0) g/dL RDW (11.5-15.5) % Plt Count (150-450) k/uL Neutrophils % % Lymphocytes % % Monocytes % % Eosinophils % % Basophils % % Neutrophils # (1.3-7.7) k/uL Lymphocytes # (1.0-4.8) k/uL Monocytes # (0-1.0) k/uL Eosinophils # (0-0.7) k/uL Basophils # (0-0.2) k/uL PT (9.0-12.0) sec INR (<1.2) APTT (22.0-30.0) sec Sodium (137-145) mmol/L Potassium (3.5-5.1) mmol/L Chloride (98-107) mmol/L Carbon Dioxide (22-30) mmol/L Anion Gap mmol/L BUN (9-20) mg/dL Creatinine (0.66-1.25) mg/dL Est GFR (CKD-EPI)AfAm (>60 ml/min/1.73 sqM) Est GFR (CKD-EPI)NonAf (>60 ml/min/1.73 sqM) Glucose (74-99) mg/dL Calcium (8.4-10.2) mg/dL Magnesium (1.6-2.3) mg/dL Total Bilirubin (0.2-1.3) mg/dL AST (17-59) U/L ALT (21-72) U/L Alkaline Phosphatase (38-126) U/L Ammonia (<30) umol/L Troponin I (0.000-0.034) ng/mL Total Protein (6.3-8.2) g/dL Albumin (3.5-5.0) g/dL Lipase (23-300) U/L Gastric Occult Blood Negative (Negative) Blood Type Blood Type Recheck Antibody Screen Spec Expiration Date Disposition Clinical Impression: Upper gastrointestinal hemorrhage Disposition: ADMITTED IP TO THIS HOSP Condition: Fair Is patient prescribed a controlled substance at d/c from ED?: No Referrals: Tony Thacker DO [Primary Care Provider] - 1-2 days
[2019-03-03 16:23] LABS: Albumin 3.1 g/dL (3.5-5.0); Calcium 9.3 mg/dL (8.4-10.2); Potassium 5.3 mmol/L (3.5-5.1); Total Bilirubin 0.3 mg/dL (0.2-1.3); Total Protein 5.8 g/dL (6.3-8.2)
[2019-03-03 20:40] LABS: Basophils % (A) 0 %; Eosinophils # (A) 0.1 k/uL (0-0.7); Eosinophils % (A) 1 %; HCT 33.9 % (39.0-53.0); HGB 11.3 gm/dL (13.0-17.5); Lymphocytes # (A) 0.8 k/uL (1.0-4.8); Lymphocytes % (A) 9 %; MCH 29.5 pg (25.0-35.0); MCHC 33.3 g/dL (31.0-37.0); MCV 88.8 fL (80.0-100.0); Mean Platelet Volume 6.6; Monocytes # (A) 0.5 k/uL (0-1.0); Monocytes % (A) 5 %; Neutrophils # (A) 7.9 k/uL (1.3-7.7); Neutrophils % (A) 84 %; Platelet Count 275 k/uL (150-450); RBC 3.81 m/uL (4.30-5.90); RDW 15.5 % (11.5-15.5); WBC 9.3 k/uL (3.8-10.6)
[2019-03-04 04:24] VITALS: BMI 26.6
[2019-03-04] MEDS ORDERED: hydrOXYzine HCL 10 MG TAB PO PRN (07:21)
[2019-03-04] MEDS ORDERED: INSULIN DETEMIR (LEVEMIR) 100 UNIT/ML SYR SQ SCH (07:30)
[2019-03-04] MEDS ORDERED: TAMSULOSIN 0.4 MG CAP.ER.24H PO SCH (09:00)
[2019-03-04] MEDS: INSULIN ASPART (NovoLOG) 100 UNIT/ML VIAL SQ SCH ×4 (09:12→21:55)
[2019-03-04] MEDS: PHENYTOIN SODIUM EXTENDED 100 MG CAP PO SCH ×3 (09:13→21:54)
[2019-03-04] MEDS: LINAGLIPTIN 5 MG TABLET PO SCH (09:13)
[2019-03-04] MEDS: PANTOPRAZOLE 40 MG/10 ML VIAL IVP SCH (09:14)
[2019-03-04] MEDS: LISINOPRIL 20 MG TAB PO SCH ×2 (09:16→21:59)
[2019-03-04] MEDS: amLODIPine 5 MG TAB PO SCH (09:16)
[2019-03-04] MEDS: TOPIRAMATE 100 MG TAB PO SCH ×3 (09:16→21:54)
[2019-03-04 09:18] LABS: Glucose,Whole Blood 111 mg/dL (75-99)
[2019-03-04] MEDS: LACOSAMIDE 150 MG TABLET PO SCH ×3 (09:18→21:59)
[2019-03-04] MEDS: CHOLECALCIFEROL 1,000 UNIT TAB PO SCH (09:18)
[2019-03-04] MEDS: levETIRAcetam 500 MG TAB PO SCH ×2 (09:18→21:59)
[2019-03-04] MEDS: CALCIUM CARB-VIT D 500MG-200UN 1 EACH TAB PO SCH (09:18)
[2019-03-04] MEDS: ATENOLOL 25 MG TAB PO SCH ×2 (09:19→21:59)
[2019-03-04 10:11] LABS: Basophils % (A) 0 %; Eosinophils # (A) 0.1 k/uL (0-0.7); Eosinophils % (A) 2 %; HCT 33.4 % (39.0-53.0); HGB 10.6 gm/dL (13.0-17.5); Lymphocytes # (A) 0.9 k/uL (1.0-4.8); Lymphocytes % (A) 14 %; MCH 28.2 pg (25.0-35.0); MCHC 31.7 g/dL (31.0-37.0); Mean Platelet Volume 6.8; Monocytes # (A) 0.4 k/uL (0-1.0); Monocytes % (A) 7 %; Neutrophils # (A) 4.8 k/uL (1.3-7.7); Neutrophils % (A) 75 %; Platelet Count 251 k/uL (150-450); RBC 3.75 m/uL (4.30-5.90); RDW 15.6 % (11.5-15.5); WBC 6.4 k/uL (3.8-10.6)
--- NOTE | 2019-03-04 10:44 | P.CONS ---
History of Present Illness - Reason for Consult Consult date: 03/04/19 Hematemesis Requesting physician: Jolly Cedeño - Chief Complaint Hematemesis - History of Present Illness 78-year-old gentleman with a history of renal cell carcinoma nephrectomy, diabetes, hyperlipidemia, chronic disease, [place], CAD with recent PCI stents 6-8 weeks ago (December 2018) maintained on aspirin and Brilinta presents with acute hematemesis 4 that started yesterday. Denies gross hematochezia or melena. History of remote peptic ulcer disease more than 30 years ago treated conservatively. Denies indigestion or changes in appetite prior to admission. No history of gastric or bowel surgeries. EGD colonoscopy more than 10 years ago. Admission hemoglobin 11.2 presently 10.6. Hemoglobin 14.9 1 month ago. Eyes abdominal pain and weight loss fever or chills. Review of Systems Constitutional: Denies fever, chills, sweats, weight gain, or loss. HEENT: Negative for migraines, blurred vision or loss, earaches, drainage, tinnitus, oral mucosal lesions, dysphagia, or odynophagia. Cardiac: Negative for chest pain, arrhythmias, or palpitation. Respiratory: Negative for shortness of breath, hemoptysis, cough, or sputum production. Gastrointestinal: See HPI for pertinent findings. Genitourinary: Negative for hematuria, urgency, frequency, polyuria, dysuria, or penile discharge. Musculoskeletal: Negative for muscle aches, swelling, arthritis, and arthralgias. Neurologic: Negative for stroke or TIA. Endocrine: Negative for thyroid problems. Skin: Negative for rash or itching. Psychiatric: Negative history for depression and anxiety Past Medical History Past Medical History: Chest Pain / Angina, Diabetes Mellitus, Hyperlipidemia, Hypertension, Memory Impairment, Seizure Disorder Additional Past Medical History / Comment(s): lives at [facility], Other HX: Post hernia repair-pt states he had brain bleed and was transferred from [facility] to [facility]-he had to learn to perform all ADLs again-also had seizures for a short time after the brain bleed but none since 2011. 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-tx with R nephrectomy and chemo in 2011 at [facility], Stage II chronic kidney disease, hypertensive cardiovascular disease with LVH, diabetic neuropathy with low back and L leg p ain, BPH Last Myocardial Infarction Date:: 1999 History of Any Multi-Drug Resistant Organisms: None Reported Past Surgical History: Cholecystectomy, Heart Catheterization With Stent Additional Past Surgical History / Comment(s): Nephrectomy right Past Anesthesia/Blood Transfusion Reactions: No Reported Reaction Date of Last Stent Placement:: 2005 Past Psychological History: Anxiety Additional Psychological History / Comment(s): lives at [facility] occasionally with memory loss Smoking Status: Former smoker Past Alcohol Use History: None Reported Additional Past Alcohol Use History / Comment(s): Pt smoked for approximately 10 yrs and quit in 1977. Past Drug Use History: None Reported - Past Family History Brother(s) Family Medical History: Myocardial Infarction ([place]) Additional Family Medical History / Comment(s): at age 82 information on chart pt not able to update nor verify informaiton Father Family Medical History: Asthma, Coronary Artery Disease (CAD) Additional Family Medical History / Comment(s): at age 82 Mother Family Medical History: CVA/TIA Additional Family Medical History / Comment(s): CVA X 2. at age 61 Medications and Allergies Home Medications Medication Instructions Recorded Confirmed Type Atenolol [Tenormin] 25 mg PO BID 06/23/15 03/03/19 History levETIRAcetam [Keppra] 1,000 mg PO Q12HR 02/20/18 03/03/19 History Aspirin 81 mg PO DAILY #30 chew 12/30/18 03/03/19 Rx Atorvastatin [Lipitor] 40 mg PO HS #30 tab 12/30/18 03/03/19 Rx Ticagrelor [Brilinta] 90 mg PO BID #60 tab 12/30/18 03/03/19 Rx Sulfamethox-Tmp 800-160Mg [Bactrim 1 tab PO Q12HR #14 tab 03/02/19 03/03/19 Rx DS 800-160 mg] Calcium Carb-Vit D 500Mg-200Un 1 tab PO DAILY 03/03/19 03/03/19 History [Oscal 500+D] Cholecalciferol [Vitamin D3] 1,000 unit PO DAILY 03/03/19 03/03/19 History Insulin Glargine [Lantus] 20 unit SQ W/BRKFST 03/03/19 03/03/19 History Lacosamide [Vimpat] 300 mg PO BID 03/03/19 03/03/19 History Lisinopril 20 mg PO Q12H 03/03/19 03/03/19 History Phenytoin Sodium Extended 200 mg PO BID 03/03/19 03/03/19 History [Dilantin] Tamsulosin [Flomax] 0.4 mg PO DAILY 03/03/19 03/03/19 History Topiramate [Topamax] 100 mg PO BID 03/03/19 03/03/19 History amLODIPine BESYLATE [Norvasc] 5 mg PO DAILY 03/03/19 03/03/19 History hydrOXYzine HCL [Atarax] 10 mg PO Q8H PRN 03/03/19 03/03/19 History sitaGLIPtin PHOSPHATE [Januvia] 100 mg PO DAILY 03/03/19 03/03/19 History Allergies Allergy/AdvReac Type Severity Reaction Status Date / Time Iodinated Contrast- Oral and AdvReac KIDNEY Verified 03/03/19 17:34 IV Dye Physical Exam Vitals: Vital Signs Temp Pulse Pulse Resp BP BP Pulse Ox 03/04/19 09:22 66 120/70 03/04/19 05:21 97.4 F L 68 16 137/66 98 03/04/19 03:04 71 16 127/64 99 03/03/19 23:50 16 03/03/19 22:09 98.4 F 68 16 153/69 99 03/03/19 21:22 65 18 119/60 100 03/03/19 19:56 68 16 136/77 100 03/03/19 18:00 65 16 111/65 100 03/03/19 17:30 58 L 15 123/77 99 03/03/19 17:00 73 15 144/83 100 03/03/19 16:30 72 16 155/83 98 03/03/19 16:16 64 20 155/83 98 03/03/19 15:43 97.6 F 72 16 145/75 97 Intake and Output 03/03/19 03/04/19 03/04/19 22:59 06:59 14:59 Intake Total 590 Output Total 700 Balance -110 Intake: Oral 590 Output: Urine 700 Other: Voiding Method Indwelling Catheter Weight 99.79 kg General appearance: The patient is alert, oriented, in no acute distress. HET: Head is normocephalic and atraumatic. Pupils are equal and reactive. Oropharynx is clear without lesions. Neck: Supple without lymphadenopathy. Trachea midline. Heart: S1 S2. Regular rate and rhythm. Lungs: No crackles or wheezes are heard. Abdomen: Soft, nontender, nondistended with bowel sounds. No peritoneal signs. No palpable organomegaly or masses. Extremities: Normal skin color and turgor. No cyanosis, rash, ulceration, clubbing, or edema. Radial and pedal pulses are 2/4 bilaterally. Neurological: No focal deficits. Strength and sensation are grossly intact. Results CBC & Chem 7: 03/04/19 08:39 03/03/19 15:49 Labs: Abnormal Lab Results - Last 24 Hours (Table) 03/03/19 03/03/19 03/03/19 Range/Units 15:49 15:49 19:55 RBC 3.84 L 3.81 L (4.30-5.90) m/uL Hgb 11.2 L 11.3 L (13.0-17.5) gm/dL Hct 33.1 L 33.9 L (39.0-53.0) % RDW 15.8 H (11.5-15.5) % Neutrophils # 9.2 H 7.9 H (1.3-7.7) k/uL Lymphocytes # 0.4 L 0.8 L (1.0-4.8) k/uL Sodium 134 L (137-145) mmol/L Potassium 5.3 H (3.5-5.1) mmol/L Chloride 108 H (98-107) mmol/L Carbon Dioxide 17 L (22-30) mmol/L BUN 33 H (9-20) mg/dL Creatinine 1.90 H (0.66-1.25) mg/dL Glucose 178 H (74-99) mg/dL POC Glucose (mg/dL) (75-99) mg/dL Total Protein 5.8 L (6.3-8.2) g/dL Albumin 3.1 L (3.5-5.0) g/dL Lipase 363 H (23-300) U/L 03/04/19 03/04/19 Range/Units 08:39 09:11 RBC 3.75 L (4.30-5.90) m/uL Hgb 10.6 L (13.0-17.5) gm/dL Hct 33.4 L (39.0-53.0) % RDW 15.6 H (11.5-15.5) % Neutrophils # (1.3-7.7) k/uL Lymphocytes # 0.9 L (1.0-4.8) k/uL Sodium (137-145) mmol/L Potassium (3.5-5.1) mmol/L Chloride (98-107) mmol/L Carbon Dioxide (22-30) mmol/L BUN (9-20) mg/dL Creatinine (0.66-1.25) mg/dL Glucose (74-99) mg/dL POC Glucose (mg/dL) 111 H (75-99) mg/dL Total Protein (6.3-8.2) g/dL Albumin (3.5-5.0) g/dL Lipase (23-300) U/L Assessment and Plan (1) Hematemesis Narrative/Plan: 78-year-old male with a history of CAD PCI stent in 6-8 weeks ago maintained on dual antiplatelet therapy presents with acute onset of painless hematemesis 4 episodes. Possible peptic ulcer disease possible Radha-Wong exacerbated by dual antiplatelet therapy possible bleeding AVM. Current Visit: Yes Status: Acute Code(s): K92.0 - HEMATEMESIS SNOMED Code(s): 7586868 Plan: 1. Protonix 40 mg twice daily. Nothing by mouth. CBC monitoring. EGD evaluation. The vp integration has discussed the risks, benefits and alternative therapies for the above-mentioned procedure and for both sedation/analgesia as well as necessary blood product administration, if indicated, as they pertain to this patient. The patient has indicated understanding and acceptance of the risks and procedures discussed. Thank you for this kind referral and the opportunity to participate in the care of your patient. This consultation was discussed with Dr. Contreras. The impression and plan of care have been directed as dictated.
[2019-03-04 11:29] LABS: Glucose,Whole Blood 107 mg/dL (75-99)
[2019-03-04] MEDS ORDERED: LIDOCAINE 1% INJ 10MG/ML (20 ML MDV) ONE (14:11)
[2019-03-04] MEDS ORDERED: PROPOFOL 10 MG/ML 20 ML VIAL IV ONE (14:11)
[2019-03-04] MEDS ORDERED: IV FLUID CONTINUATION 1,000 ML IV ONE (14:22)
--- NOTE | 2019-03-04 14:35 | P.PCN ---
Date of Procedure: 03/04/19 Description of Procedure: BRIEF HISTORY: 78-year-old gentleman with a history of renal cell carcinoma nephrectomy, diabetes, hyperlipidemia, chronic disease, [place], CAD with recent PCI stents 6-8 weeks ago (December 2018) maintained on aspirin and Brilinta presents with acute hematemesis 4 that started yesterday. Denies gross hematochezia or melena. History of remote peptic ulcer disease more than 30 years ago treated conservatively. Denies indigestion or changes in appetite prior to admission. No history of gastric or bowel surgeries. EGD colonoscopy more than 10 years ago. Admission hemoglobin 11.2 presently 10.6. Hemoglobin 14.9 1 month ago. PROCEDURE PERFORMED: Esophagogastroduodenoscopy. PREOPERATIVE DIAGNOSIS: Hematemesis, anemia of acute blood loss. ESTIMATED BLOOD LOSS: Minimal. IV sedation per anesthesia. PROCEDURE: After informed consent was obtained, the patient was brought into the endoscopy unit. IV sedation was administered by Anesthesia under continuous monitoring. Initially the Olympus GIF-190 video endoscope was inserted into the mouth. Esophagus intubated without any difficulty. It was gradually advanced into the stomach and duodenum and carefully examined. The bulb and the second part of the duodenum appeared normal. The scope at this time was withdrawn to the stomach, adequately insufflated with air, and upon careful examination, mucosa of the antrum, body, cardia and the fundus appeared grossly normal, there was diffuse inflammation and erythema throughout the stomach suggestive of mild to moderate gastritis with no biopsies taken in the setting of anticoagulation and symptoms of upper GI bleed. The scope was then withdrawn into the esophagus. The GE junction was located at 40 cm from the incisors. The esophagus appeared normal, with a widely patent Schatzki ring in the distal esophagus. There were no erosions or ulcerations seen and the patient tolerated the procedure well. IMPRESSION: 1. No active bleeding or old blood. 2. Mild to moderate gastritis throughout the stomach, no biopsies taken due to anticoagulation. RECOMMENDATIONS: The findings of this examination were discussed with the patient. Okay for full liquid diet. Continue to monitor signs and symptoms of GI bleed. Continue monitor hemoglobin and transfuse as needed. Okay to continue anticoagulation for now in the setting of recent cardiac stent placement.
[2019-03-04] MEDS: SODIUM CHLORIDE 0.9% 1,000 ML IV SCH ×2 (14:39→19:25)
[2019-03-04 16:59] LABS: Glucose,Whole Blood 166 mg/dL (75-99)
[2019-03-04] MEDS: ENOXAPARIN 40 MG/0.4 ML SYRINGE SQ SCH (18:07)
--- NOTE | 2019-03-04 20:01 | HP ---
HISTORY AND PHYSICAL DATE OF ADMISSION: 03/03/2019 DATE OF SERVICE: 03/04/2019 PRESENTING COMPLAINT: Vomiting blood. HISTORY OF PRESENTING COMPLAINT: This is a pleasant 78-year-old patient who is currently at the [facility], being followed by Dr. Thacker. The patient's family doctor is Dr. Romie Dominguez. The patient's chronic stable medical conditions include diabetes mellitus, type 2, hypertension, hyperlipidemia, some memory impairment. Patient in the past had a brain bleed, but none since 2011. Two or three weeks ago the patient had seizures, for which he was transferred to [facility]. Patient was put on 4 antiseizure medications. The patient was then sent to [facility]. The patient was recently admitted for a UTI. Yesterday the patient's daughter was called, who gave most of the history above. The patient was sitting up in a chair, started perspiring, had decreased responsiveness, then started vomiting, and a lot of it was bloody. The patient did undergo EGD by Dr. Contreras today, which was essentially unremarkable. It may be noted that the patient is on aspirin and Brilinta for a stent, but not too long ago. The patient also had a Mesa catheter for about 4 weeks. The patient denies any abdominal pain. No prior history of GI bleed. Patient's daughter does remark that the patient occasionally has been getting confused. REVIEW OF SYSTEMS: CONSTITUTIONAL: Tired. HEENT: Slightly decreased hearing. RESPIRATORY: None. CARDIOVASCULAR: None. GASTROINTESTINAL: As above. GENITOURINARY: Chronic Mesa catheter for 4 weeks. DERMATOLOGICAL: None. HEMATOLOGICAL: None. LYMPHATICS: None. PSYCHIATRY: Occasionally forgetful. NEUROLOGICAL: Numbness and tingling in hands and feet. PAST MEDICAL HISTORY: 1. Diabetes mellitus, type 2. 2. Hyperlipidemia. 3. Hypertension. 4. Some memory impairment. 5. Seizure disorder; was at [facility] recently. 6. Hernia repair. 7. Brain bleed and transferred to [facility] in the past. The patient's current seizures are felt to be from the area of brain bleed in the frontal lobe, as per his daughter. 8. Right renal cell cancer, treated with nephrectomy and chemo in 2011 at [facility]. 9. Chronic kidney disease, stage II. 10.Hypertensive heart disease with left ventricular hypertrophy. 11.Diabetic neuropathy. 12.BPH. PAST SURGICAL HISTORY: 1. Cholecystectomy. 2. Cardiac cath with stent. 3. Right nephrectomy. PSYCH HISTORY: Anxiety. SOCIAL HISTORY: Lives at [facility]. The patient smoked for about 10 years; quit in 1977. No alcohol. FAMILY HISTORY: Asthma, coronary artery disease. HOME MEDICATIONS: 1. Bactrim DS one tablet p.o. q.12. 2. Atarax 10 mg q.8 p.r.n. 3. Topamax 100 mg p.o. b.i.d. 4. Brilinta 90 mg b.i.d. 5. Dilantin 200 mg b.i.d. 6. Lisinopril 20 mg q.12. 7. Vimpat 300 mg b.i.d. 8. Keppra 1000 mg q.12. 9. Flomax 0.4 mg p.o. daily. 10.Tenormin 25 mg b.i.d. 11.Januvia 100 mg p.o. daily. 12.Os-Jean Claude 500 with D one tablet p.o. daily. 13.Lantus 20 units subcutaneously with breakfast. 14.Vitamin D3 1000 units p.o. daily. 15.Norvasc 5 mg p.o. daily. 16.Aspirin 81 mg p.o. daily. 17.Lipitor 40 mg at bedtime. ALLERGIES: IV CONTRAST DYE. PHYSICAL EXAMINATION: Temperature 97.6, pulse 72, respiration 16, blood pressure 145/75, pulse ox 97% on 2 L. GENERAL APPEARANCE: Average build. BMI 33.5. Sitting at the edge of the bed, awake. EYES: Pupils equal. Conjunctivae pale. HEENT: External appearance of nose and ears normal. Oral cavity normal. NECK: JVD not raised. Mass not palpable. RESPIRATORY: Effort normal. Lungs are clear. CARDIOVASCULAR: First and second sounds normal. No edema. ABDOMEN: Soft, non-tender. Liver and spleen not palpable. LYMPHATIC: No lymph node palpable in neck or axillae. PSYCHIATRY: Alert and oriented x3. Mood and affect normal. Occasionally a bit slow in answering questions. NEUROLOGICAL: Pupils equal. Cranial nerves grossly intact. Power and sensation grossly intact. Patient has a Mesa catheter in place. INVESTIGATIONS: White count 10.4. Hemoglobin 11.2; this morning, 10.6. Platelets 321. Potassium 5.3, BUN 33, creatinine 1.90. Patient's hemoglobin on 02/14/2019 was 14.9. Patient did go for EGD today by Dr. Contreras. Some gastritis was noted. ASSESSMENT: 1. Acute severe gastrointestinal bleed in a patient who is on aspirin and Brilinta. EGD showing gastritis. Cannot rule out any distal bleed. 2. Acute blood loss anemia from upper gastrointestinal. Recent hemoglobin dropped from 14.9 to 11. 3. Diabetes mellitus, type 2. 4. Hyperlipidemia. 5. Essential hypertension. 6. Mild cognitive impairment. 7. Seizure disorder, on anti-epileptic medications. 8. Right nephrectomy for malignancy. 9. Chronic kidney disease, stage II. 10.Hypertensive heart disease. 11.Diabetic peripheral neuropathy. 12.Benign prostatic hypertrophy, now with a chronic Mesa catheter. 13.Coronary artery disease with stent. PLAN: I had a very lengthy talk with the patient and his daughter. Will resume patient's aspirin and Brilinta if okay with GI. The patient has been put on PPI. Other home medications will be resumed. Will increase the patient's Lipitor. Will increase the patient's Flomax and give a trial of discontinuing Mesa catheter in the morning. Patient is not very keen to take the insulin. Will try the patient on glyburide. Patient also will be given IV fluids. Will also stop the Bactrim in view of the renal failure. MMODL / IJN: [id number] /
[2019-03-04 20:49] LABS: Glucose,Whole Blood 158 mg/dL (75-99)
[2019-03-04] MEDS: ATORVASTATIN 40 MG TAB PO SCH (21:59)
[2019-03-04 23:53] LABS: Appearance,Urine Clear (Clear); Bilirubin,Urine Negative (Negative); Blood,Urine Moderate (Negative); Color,Urine Light Yellow; Glucose,Urine (UA) Negative (Negative); Ketones,Urine Negative (Negative); Leukocyte Esterase,Urine Large (Negative); Mucus,Urine Rare /hpf; Nitrite,Urine Negative (Negative); Protein,Urine Trace (Negative); RBC,Urine 39 /hpf (0-5); Specific Gravity,Urine 1.012 (1.001-1.035); Urobilinogen,Urine <2.0 mg/dL (<2.0)
[2019-03-05 06:57] LABS: Glucose,Whole Blood 94 mg/dL (75-99)
[2019-03-05] MEDS: PANTOPRAZOLE 40 MG/10 ML VIAL IVP SCH (07:26)
[2019-03-05] MEDS: PHENYTOIN SODIUM EXTENDED 100 MG CAP PO SCH ×2 (07:28→23:35)
[2019-03-05] MEDS: ENOXAPARIN 40 MG/0.4 ML SYRINGE SQ SCH (07:28)
[2019-03-05] MEDS: LACOSAMIDE 150 MG TABLET PO SCH ×2 (07:28→22:31)
[2019-03-05] MEDS: CALCIUM CARB-VIT D 500MG-200UN 1 EACH TAB PO SCH (07:31)
[2019-03-05] MEDS: CHOLECALCIFEROL 1,000 UNIT TAB PO SCH (07:31)
[2019-03-05] MEDS: ATENOLOL 25 MG TAB PO SCH ×2 (07:31→22:31)
[2019-03-05] MEDS: TOPIRAMATE 100 MG TAB PO SCH ×2 (07:31→23:35)
[2019-03-05] MEDS: amLODIPine 5 MG TAB PO SCH (07:31)
[2019-03-05] MEDS: LISINOPRIL 20 MG TAB PO SCH ×2 (07:32→22:31)
[2019-03-05] MEDS: levETIRAcetam 500 MG TAB PO SCH ×2 (07:35→23:38)
[2019-03-05] MEDS: LINAGLIPTIN 5 MG TABLET PO SCH (07:35)
[2019-03-05] MEDS ORDERED: TAMSULOSIN 0.4 MG CAP.ER.24H PO SCH (08:30)
[2019-03-05 09:15] LABS: Basophils % (A) 0 %; Eosinophils # (A) 0.2 k/uL (0-0.7); Eosinophils % (A) 3 %; HCT 34.6 % (39.0-53.0); HGB 11.4 gm/dL (13.0-17.5); Lymphocytes # (A) 1.1 k/uL (1.0-4.8); Lymphocytes % (A) 21 %; MCH 29.2 pg (25.0-35.0); MCHC 32.9 g/dL (31.0-37.0); MCV 88.9 fL (80.0-100.0); Mean Platelet Volume 6.6; Monocytes # (A) 0.4 k/uL (0-1.0); Monocytes % (A) 8 %; Neutrophils # (A) 3.3 k/uL (1.3-7.7); Neutrophils % (A) 66 %; Platelet Count 271 k/uL (150-450); RBC 3.89 m/uL (4.30-5.90); RDW 15.5 % (11.5-15.5)
[2019-03-05 09:31] LABS: Calcium 8.8 mg/dL (8.4-10.2); Potassium 4.4 mmol/L (3.5-5.1)
[2019-03-05] MEDS: SODIUM CHLORIDE 0.9% 1,000 ML IV SCH ×3 (09:32→14:48)
[2019-03-05] MEDS: INSULIN ASPART (NovoLOG) 100 UNIT/ML VIAL SQ SCH ×4 (09:32→22:30)
[2019-03-05 11:33] LABS: Glucose,Whole Blood 134 mg/dL (75-99)
--- NOTE | 2019-03-05 12:27 | P.PN ---
Subjective Progress Note Date: 03/05/19 Principal diagnosis: GI bleed hematemesis Status post EGD yesterday no evidence of peptic ulcer disease or bleeding sources. Hemoglobin improved to 11.4. No further bleeding episodes. Feels well. Objective - Vital Signs Vital signs: Vital Signs Temp 97.7 F 03/05/19 11:30 Pulse 68 03/05/19 11:30 Resp 17 03/05/19 11:30 BP 145/69 03/05/19 11:30 Pulse Ox 96 03/05/19 11:30 Intake & Output 03/04/19 03/05/19 03/05/19 18:59 06:59 18:59 Intake Total 500 Output Total 1200 1300 Balance -700 -1300 Intake: IV 500 Output: Urine 1200 1300 Other: Voiding Method Indwelling Catheter Indwelling Catheter Indwelling Catheter # Voids 2 # Bowel Movements 2 6 - Exam General appearance: The patient is alert, oriented, in no acute distress. HET: Head is normocephalic and atraumatic. Pupils are equal and reactive. Oropharynx is clear without lesions. Neck: Supple without lymphadenopathy. Trachea midline. Heart: S1 S2. Regular rate and rhythm. Lungs: No crackles or wheezes are heard. Abdomen: Soft, nontender, nondistended with bowel sounds. No peritoneal signs. No palpable organomegaly or masses. Extremities: Normal skin color and turgor. No cyanosis, rash, ulceration, clubbing, or edema. Radial and pedal pulses are 2/4 bilaterally. Neurological: No focal deficits. Strength and sensation are grossly intact. - Labs CBC & Chem 7: 03/05/19 08:34 03/05/19 08:34 Labs: Abnormal Lab Results - Last 24 Hours (Table) 03/04/19 03/04/19 03/04/19 Range/Units 16:58 20:48 23:33 RBC (4.30-5.90) m/uL Hgb (13.0-17.5) gm/dL Hct (39.0-53.0) % Sodium (137-145) mmol/L Chloride (98-107) mmol/L Carbon Dioxide (22-30) mmol/L Glucose (74-99) mg/dL POC Glucose (mg/dL) 166 H 158 H (75-99) mg/dL Urine Protein Trace H (Negative) Urine Blood Moderate H (Negative) Ur Leukocyte Esterase Large H (Negative) Urine RBC 39 H (0-5) /hpf Urine WBC 23 H (0-5) /hpf Urine Mucus Rare H (None) /hpf 03/05/19 03/05/19 03/05/19 Range/Units 08:34 08:34 11:22 RBC 3.89 L (4.30-5.90) m/uL Hgb 11.4 L (13.0-17.5) gm/dL Hct 34.6 L (39.0-53.0) % Sodium 135 L (137-145) mmol/L Chloride 110 H (98-107) mmol/L Carbon Dioxide 19 L (22-30) mmol/L Glucose 134 H (74-99) mg/dL POC Glucose (mg/dL) 134 H (75-99) mg/dL Urine Protein (Negative) Urine Blood (Negative) Ur Leukocyte Esterase (Negative) Urine RBC (0-5) /hpf Urine WBC (0-5) /hpf Urine Mucus (None) /hpf Microbiology - Last 24 Hours (Table) 03/04/19 23:33 Urine Culture - Preliminary Urine,Catheterized Assessment and Plan (1) Hematemesis Narrative/Plan: Status post EGD no evidence of peptic ulcer disease or bleeding sources possible Radha-Wong tear. Current Visit: Yes Status: Acute Code(s): K92.0 - HEMATEMESIS SNOMED Code(s): 7874658 Plan: 1. Hemoglobin stable. Diet as tolerated. We'll follow as needed. Assessment and plan a care discussed with Dr. Contreras
[2019-03-05 17:12] LABS: Glucose,Whole Blood 145 mg/dL (75-99)
[2019-03-05 20:11] LABS: Glucose,Whole Blood 165 mg/dL (75-99)
[2019-03-05] MEDS: ATORVASTATIN 40 MG TAB PO SCH (22:31)
[2019-03-05] MEDS: TAMSULOSIN 0.4 MG CAP.ER.24H PO SCH (23:39)
--- NOTE | 2019-03-06 00:03 | PN ---
PROGRESS NOTE DATE OF SERVICE: 03/05/2019 PRESENTING COMPLAINT: Vomiting blood. INTERVAL HISTORY: This patient with multiple problems was admitted with vomiting blood. EGD was unremarkable. Patient was started back on antiplatelet agents because of recent cardiac catheterization with stent. Overall feeling better. Did tolerate a diet. Patient's is sitting at the bedside. REVIEW OF SYSTEMS: Done for constitutional, cardiovascular, GI, pulmonary; relevant findings as above. Patient did have a brown stool. CURRENT MEDICATIONS: Reviewed. They include IV ceftriaxone, normal saline. PHYSICAL EXAMINATION: Temperature 97.7, pulse 68, respiration 17, blood pressure 145/69, pulse ox 96% on room air. GENERAL APPEARANCE: Sitting up, looking more comfortable. EYES: Pupils equal. Conjunctivae normal. NECK: JVD not raised. Mass not palpable. RESPIRATORY: Effort normal. LUNGS: Fair air entry. CARDIOVASCULAR: First and second sounds normal. No edema. ABDOMEN: Soft, non-tender. Liver and spleen not palpable. PSYCHIATRY: Alert and oriented x3. Mood and affect normal. Mesa catheter in place. INVESTIGATIONS: White count 5, hemoglobin 11.4, potassium 4.4. BUN and creatinine noted. Creatinine is 1.23. Accu-Cheks 134, 145, 165. ASSESSMENT: 1. Acute severe gastrointestinal bleed in a patient who is on aspirin and Brilinta. EGD showing gastritis. 2. Acute blood loss anemia from upper gastrointestinal bleed. 3. Diabetes mellitus, type 2. Patient's Levemir was discontinued. 4. Hyperlipidemia. 5. Essential hypertension. 6. Mild cognitive impairment. 7. Seizure disorder. On antiepileptic medication. 8. Right nephrectomy for malignancy. 9. Chronic kidney disease, stage II. 10.Hypertensive heart disease. 11.Diabetic peripheral neuropathy. 12.Benign prostatic hypertrophy, now with chronic Mesa catheter. 13.Coronary artery disease with stent. PLAN: Overall patient is doing better. Will see how patient's Accu-Cheks are doing. Watch for another 24 hours. Care was discussed with the patient's at the bedside. Patient's urine culture is pending. Overall he is doing better. Repeat labs in the morning. Hopefully the patient can go back tomorrow. MMODL / IJN: [id number] /
[2019-03-06] MEDS: INSULIN ASPART (NovoLOG) 100 UNIT/ML VIAL SQ SCH ×4 (07:19→22:09)
[2019-03-06 10:23] LABS: Calcium 9.1 mg/dL (8.4-10.2); Potassium 4.6 mmol/L (3.5-5.1)
[2019-03-06] MEDS: TAMSULOSIN 0.4 MG CAP.ER.24H PO SCH ×2 (10:55→17:11)
[2019-03-06] MEDS: CALCIUM CARB-VIT D 500MG-200UN 1 EACH TAB PO SCH (10:55)
[2019-03-06] MEDS: TOPIRAMATE 100 MG TAB PO SCH ×2 (10:55→22:10)
[2019-03-06] MEDS: PHENYTOIN SODIUM EXTENDED 100 MG CAP PO SCH ×2 (10:56→22:10)
[2019-03-06] MEDS: LISINOPRIL 20 MG TAB PO SCH ×2 (10:56→22:09)
[2019-03-06] MEDS: PANTOPRAZOLE 40 MG/10 ML VIAL IVP SCH (10:56)
[2019-03-06] MEDS: LACOSAMIDE 150 MG TABLET PO SCH ×2 (10:56→22:14)
[2019-03-06] MEDS: LINAGLIPTIN 5 MG TABLET PO SCH (10:56)
[2019-03-06] MEDS: levETIRAcetam 500 MG TAB PO SCH ×2 (10:56→22:14)
[2019-03-06] MEDS: CHOLECALCIFEROL 1,000 UNIT TAB PO SCH (10:56)
[2019-03-06] MEDS: ENOXAPARIN 40 MG/0.4 ML SYRINGE SQ SCH (10:57)
[2019-03-06] MEDS: ATENOLOL 25 MG TAB PO SCH ×2 (11:09→22:09)
[2019-03-06] MEDS: amLODIPine 5 MG TAB PO SCH (11:09)
[2019-03-06] MEDS: SODIUM BICARBONATE TAB 650 MG TAB PO SCH ×3 (11:09→22:09)
[2019-03-06 11:10] LABS: Glucose,Whole Blood 176 mg/dL (75-99)
[2019-03-06 15:43] LABS: Glucose,Whole Blood 72 mg/dL (75-99)
[2019-03-06 16:54] LABS: Glucose,Whole Blood 95 mg/dL (75-99)
[2019-03-06 20:37] LABS: Glucose,Whole Blood 207 mg/dL (75-99)
[2019-03-06] MEDS: ATORVASTATIN 40 MG TAB PO SCH (22:09)
--- NOTE | 2019-03-06 23:46 | PN ---
PROGRESS NOTE DATE OF SERVICE: March 06, 2019. PRESENTING COMPLAINT: Low sugars. INTERVAL HISTORY: The patient admitted with vomiting blood. EGD was unremarkable. The patient is put back on his antiplatelet agents because of recent coronary intervention. The patient did drop his sugar to 72, but otherwise doing well. Overall feels much better. Has a friend visiting him. Looking to go to the [facility]. Authorization has not come through. Has been up to the bathroom. Patient's Mesa catheter was discontinued this morning and the patient has been making good urine. REVIEW OF SYSTEMS: Done for constitutional, cardiovascular, GI, pulmonary; relevant findings as above. CURRENT MEDICATIONS: Reviewed and include IV ceftriaxone. PHYSICAL EXAMINATION: VITAL SIGNS: Temperature 97.6, pulse 59, respiratory 18, blood pressure 147/68, pulse ox 98% on room air. GENERAL APPEARANCE: Sitting up, awake. EYES: Pupils equal. Conjunctivae normal. NECK: JVD not raised. Mass not palpable. RESPIRATORY: Effort normal. LUNGS: Clear. CARDIOVASCULAR: 1st and 2nd sounds normal. No edema. ABDOMEN: Soft, nontender. Liver and spleen not palpable. PSYCHIATRY: Alert and oriented x3. Mood and affect normal. INVESTIGATIONS: Potassium 4.6, BUN 12, creatinine 1.15. ASSESSMENT: 1. Acute severe gastrointestinal bleed in a patient who was on aspirin and Brilinta. EGD results were unremarkable except for showing gastritis. 2. Acute blood loss anemia from upper gastrointestinal bleed. 3. Diabetes mellitus type 2 on oral hypoglycemics. Levemir was discontinued. 4. Hyperlipidemia. 5. Essential hypertension. 6. Mild cognitive impairment. 7. Seizure disorder on antiepileptic medications. 8. 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 9. Chronic kidney disease stage 2. 10.Hypertensive heart disease. 11.Diabetic peripheral neuropathy. 12.Benign prostatic hypertrophy. Mesa catheter has been discontinued. 13.Coronary artery disease with stent with stent. 14.Acute renal failure probably prerenal. PLAN: Waiting for the patient go to the ECF. We will cut back the glyburide to 2.5 mg once a day. The patient's renal function has improved. Care was discussed with the patient. MMODL / IJN: [id number] /
[2019-03-07 07:15] LABS: Glucose,Whole Blood 137 mg/dL (75-99)
[2019-03-07] MEDS: amLODIPine 5 MG TAB PO SCH (08:28)
[2019-03-07] MEDS: TOPIRAMATE 100 MG TAB PO SCH ×2 (08:29→22:18)
[2019-03-07] MEDS: LINAGLIPTIN 5 MG TABLET PO SCH (08:29)
[2019-03-07] MEDS: CALCIUM CARB-VIT D 500MG-200UN 1 EACH TAB PO SCH (08:29)
[2019-03-07] MEDS: SODIUM BICARBONATE TAB 650 MG TAB PO SCH ×3 (08:29→21:19)
[2019-03-07] MEDS: LACOSAMIDE 150 MG TABLET PO SCH ×2 (08:29→21:18)
[2019-03-07] MEDS: PHENYTOIN SODIUM EXTENDED 100 MG CAP PO SCH ×2 (08:29→22:34)
[2019-03-07] MEDS: INSULIN ASPART (NovoLOG) 100 UNIT/ML VIAL SQ SCH ×4 (08:30→21:12)
[2019-03-07] MEDS: ATENOLOL 25 MG TAB PO SCH ×2 (08:30→21:17)
[2019-03-07] MEDS: TAMSULOSIN 0.4 MG CAP.ER.24H PO SCH ×2 (08:30→17:06)
[2019-03-07] MEDS: PANTOPRAZOLE 40 MG/10 ML VIAL IVP SCH (08:30)
[2019-03-07] MEDS: LISINOPRIL 20 MG TAB PO SCH ×2 (08:30→20:07)
[2019-03-07] MEDS: ENOXAPARIN 40 MG/0.4 ML SYRINGE SQ SCH (08:30)
[2019-03-07] MEDS: CHOLECALCIFEROL 1,000 UNIT TAB PO SCH (08:31)
[2019-03-07] MEDS: levETIRAcetam 500 MG TAB PO SCH ×2 (08:46→21:18)
[2019-03-07 09:40] LABS: Calcium 9.2 mg/dL (8.4-10.2)
[2019-03-07 11:20] LABS: Glucose,Whole Blood 78 mg/dL (75-99)
[2019-03-07 17:08] LABS: Glucose,Whole Blood 131 mg/dL (75-99)
[2019-03-07 20:22] LABS: Glucose,Whole Blood 130 mg/dL (75-99)
[2019-03-07] MEDS: ATORVASTATIN 40 MG TAB PO SCH (21:18)
--- NOTE | 2019-03-07 23:26 | PN ---
PROGRESS NOTE DATE OF SERVICE: 03/07/2019. PRESENTING COMPLAINT: Tired. INTERVAL HISTORY: Patient admitted with vomiting. unremarkable. The patient is on antiplatelet agents for the recent coronary intervention. The patient's glyburide dose was cut back. Insulin that he was taking at home has been discontinued. Doing well. The patient is pending authorization to go to the [facility]. The patient's is present. REVIEW OF SYSTEMS: Done for constitutional, cardiovascular, GI, pulmonary; relevant findings as above. CURRENT MEDICATIONS: Reviewed include IV ceftriaxone. PHYSICAL EXAMINATION: Temperature 97.7, pulse 86, respirations 14, blood pressure 116/80, pulse ox 97% on room air. GENERAL APPEARANCE: Sitting at the edge of bed, comfortable. EYES: Pupils equal. Conjunctivae normal. NECK: JVD not raised. Mass not palpable. Respiratory effort normal. LUNGS: Clear. CARDIOVASCULAR: 1st and 2nd heart sounds normal. No edema. ABDOMEN: Soft, nontender. Liver and spleen not palpable. PSYCHIATRY: Alert and oriented x3. Mood normal. INVESTIGATIONS: Potassium 5, BUN 17, creatinine 1.36. Accu-Cheks 78, 131, 130. ASSESSMENT: 1. Acute severe gastrointestinal bleed in a patient who was on aspirin and Brilinta. EGD was unremarkable. 2. Gastritis. 3. Acute blood loss anemia from upper gastrointestinal bleed. 4. Diabetes mellitus type 2 on oral hypoglycemic. Levemir was discontinued. 5. Hyperlipidemia. 6. Essential hypertension. 7. 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 8. Seizure disorder. 9. Medication. 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 11.Chronic kidney stage 2. 12.Hypertensive heart disease. 13.Diabetic peripheral neuropathy. 14.Benign prostatic hypertrophy. Mesa catheter has been discontinued. 15.Coronary artery disease with stent. 16.Acute renal failure probably prerenal, improved. PLAN: Continue current medication and treatment plan. Patient is pending authorization to go to the [facility]. MMODL / STEPHYN: [id number] /
[2019-03-08 07:03] LABS: Glucose,Whole Blood 150 mg/dL (75-99)
[2019-03-08 07:27] LABS: Calcium 9.3 mg/dL (8.4-10.2)
[2019-03-08] MEDS: INSULIN ASPART (NovoLOG) 100 UNIT/ML VIAL SQ SCH ×4 (07:32→20:38)
[2019-03-08] MEDS: LISINOPRIL 20 MG TAB PO SCH ×2 (07:35→17:35)
[2019-03-08] MEDS: amLODIPine 5 MG TAB PO SCH (07:36)
[2019-03-08] MEDS: CALCIUM CARB-VIT D 500MG-200UN 1 EACH TAB PO SCH (07:36)
[2019-03-08] MEDS: TAMSULOSIN 0.4 MG CAP.ER.24H PO SCH ×2 (07:36→17:35)
[2019-03-08] MEDS: CHOLECALCIFEROL 1,000 UNIT TAB PO SCH (07:36)
[2019-03-08] MEDS: ATENOLOL 25 MG TAB PO SCH ×2 (07:36→20:41)
[2019-03-08] MEDS: ENOXAPARIN 40 MG/0.4 ML SYRINGE SQ SCH (07:36)
[2019-03-08] MEDS: LACOSAMIDE 150 MG TABLET PO SCH ×2 (07:37→20:41)
[2019-03-08] MEDS: levETIRAcetam 500 MG TAB PO SCH ×2 (07:37→20:41)
[2019-03-08] MEDS: PHENYTOIN SODIUM EXTENDED 100 MG CAP PO SCH ×2 (07:38→20:42)
[2019-03-08] MEDS: PANTOPRAZOLE 40 MG/10 ML VIAL IVP SCH (07:38)
[2019-03-08] MEDS: LINAGLIPTIN 5 MG TABLET PO SCH (07:38)
[2019-03-08] MEDS: SODIUM BICARBONATE TAB 650 MG TAB PO SCH ×3 (07:39→21:29)
[2019-03-08] MEDS: TOPIRAMATE 100 MG TAB PO SCH ×2 (07:39→20:42)
[2019-03-08 11:17] LABS: Glucose,Whole Blood 83 mg/dL (75-99)
[2019-03-08 12:42] LABS: Basophils % (A) 1 %; Eosinophils # (A) 0.1 k/uL (0-0.7); Eosinophils % (A) 3 %; HCT 36.3 % (39.0-53.0); Hypochromasia Moderate; Lymphocytes # (A) 0.9 k/uL (1.0-4.8); Lymphocytes % (A) 20 %; MCH 28.4 pg (25.0-35.0); MCHC 30.4 g/dL (31.0-37.0); MCV 93.5 fL (80.0-100.0); Mean Platelet Volume 7.4; Monocytes # (A) 0.3 k/uL (0-1.0); Monocytes % (A) 7 %; Neutrophils % (A) 66 %; Platelet Count 206 k/uL (150-450); RBC 3.88 m/uL (4.30-5.90); RDW 15.1 % (11.5-15.5); WBC 4.5 k/uL (3.8-10.6)
[2019-03-08 16:58] LABS: Glucose,Whole Blood 180 mg/dL (75-99)
--- NOTE | 2019-03-08 19:24 | PN ---
PROGRESS NOTE DATE OF SERVICE: 03/08/2019 This is a 78 -year-old gentleman who was admitted with severe GI bleed underwent EGD which is unremarkable. Patient being closely monitored. PT/OT evaluating the patient for possible ECF rehab. Hemoglobin is 11 at this time. EXAM: Alert and oriented x2. Pulse 70. Blood pressure 140/88, respirations 20, temperature 97 degrees, pulse ox 99% on room air. HEENT: Conjunctivae normal. NECK: No jugular venous distention. CARDIOVASCULAR: S1, S2 muffled. RESPIRATORY: Few scattered rhonchi. Abdomen soft. LEGS: No edema, no swelling. Central nervous system: No focal deficits. LABS: WBC 4.2, hemoglobin 11, sodium 130, potassium 5, creatinine is 1.38. ASSESSMENT: 1. Acute severe gastrointestinal bleed who was on aspirin and Brilinta. EGD unremarkable. 2. Gastritis. 3. Acute blood-loss anemia from upper gastrointestinal bleed. 4. Diabetes mellitus type 2 on oral hypoglycemics. 5. Hyperlipidemia. 6. Hypertension. 7. Mild cognitive impairment, probable late onset as well as dementia. 8. Seizure disorder. 9. History right nephrectomy for malignancy. 10.Chronic kidney disease stage 2. 11.Hypertensive heart disease. 12.Diabetic peripheral neuropathy. 13.Benign prostatic hypertrophy. 14.Coronary artery disease, stent. 15.Acute renal failure, probably prerenal, improved. RECOMMENDATIONS AND DISCUSSION: Continue current medications, management and symptomatic treatment. Otherwise, at this time, repeat labs in the morning. PT/OT evaluation, possible ECF rehab. Guarded prognosis. Further recommendations to follow. Continue the rest of the medications. MMODL / IJN: [id number] /
[2019-03-08] MEDS: ATORVASTATIN 40 MG TAB PO SCH (20:41)
[2019-03-08 20:57] LABS: Glucose,Whole Blood 120 mg/dL (75-99)
[2019-03-09 06:59] LABS: Basophils % (A) 0 %; Eosinophils # (A) 0.1 k/uL (0-0.7); Eosinophils % (A) 2 %; HCT 36.2 % (39.0-53.0); HGB 11.6 gm/dL (13.0-17.5); Lymphocytes # (A) 1.3 k/uL (1.0-4.8); Lymphocytes % (A) 25 %; MCH 28.5 pg (25.0-35.0); MCHC 32.1 g/dL (31.0-37.0); MCV 88.9 fL (80.0-100.0); Mean Platelet Volume 6.9; Monocytes # (A) 0.4 k/uL (0-1.0); Monocytes % (A) 9 %; Neutrophils # (A) 3.1 k/uL (1.3-7.7); Neutrophils % (A) 61 %; Platelet Count 207 k/uL (150-450); RBC 4.08 m/uL (4.30-5.90); RDW 15.5 % (11.5-15.5); WBC 5.1 k/uL (3.8-10.6)
[2019-03-09 07:07] LABS: Calcium 9.4 mg/dL (8.4-10.2); Potassium 4.8 mmol/L (3.5-5.1)
[2019-03-09 07:19] LABS: Glucose,Whole Blood 187 mg/dL (75-99)
[2019-03-09] MEDS: ENOXAPARIN 40 MG/0.4 ML SYRINGE SQ SCH (08:51)
[2019-03-09] MEDS: INSULIN ASPART (NovoLOG) 100 UNIT/ML VIAL SQ SCH ×4 (08:51→21:38)
[2019-03-09] MEDS: SODIUM BICARBONATE TAB 650 MG TAB PO SCH ×3 (08:51→21:37)
[2019-03-09] MEDS: CALCIUM CARB-VIT D 500MG-200UN 1 EACH TAB PO SCH (08:51)
[2019-03-09] MEDS: ATENOLOL 25 MG TAB PO SCH ×2 (08:51→21:37)
[2019-03-09] MEDS: PANTOPRAZOLE 40 MG/10 ML VIAL IVP SCH (08:51)
[2019-03-09] MEDS: LINAGLIPTIN 5 MG TABLET PO SCH (08:52)
[2019-03-09] MEDS: amLODIPine 5 MG TAB PO SCH (08:52)
[2019-03-09] MEDS: TAMSULOSIN 0.4 MG CAP.ER.24H PO SCH ×2 (08:52→18:04)
[2019-03-09] MEDS: LISINOPRIL 20 MG TAB PO SCH ×2 (08:52→18:04)
[2019-03-09] MEDS: levETIRAcetam 500 MG TAB PO SCH ×2 (08:52→21:37)
[2019-03-09] MEDS: CHOLECALCIFEROL 1,000 UNIT TAB PO SCH (08:52)
[2019-03-09] MEDS: PHENYTOIN SODIUM EXTENDED 100 MG CAP PO SCH ×2 (08:53→21:39)
[2019-03-09] MEDS: TOPIRAMATE 100 MG TAB PO SCH ×2 (08:53→21:37)
[2019-03-09] MEDS: LACOSAMIDE 150 MG TABLET PO SCH ×2 (08:54→21:37)
[2019-03-09 11:09] LABS: Glucose,Whole Blood 69 mg/dL (75-99)
--- NOTE | 2019-03-09 16:06 | PN ---
PROGRESS NOTE DATE OF SERVICE: 03/09/2019 DATE OF SERVICE: This 78-year-old gentleman who was admitted with acute severe GI bleed is improving significantly. No chest pain. No palpitations. No fever. EXAM: Alert and oriented x3. Pulse is 64, blood pressure 120/64, respiration 20, temperature 97.6, pulse ox 97% on room air. HEENT: Conjunctivae normal. NECK: No jugular venous distention. CARDIOVASCULAR: S1, S2. respiratory: Breath sounds diminished in the bases. A few scattered rhonchi and crackles. ABDOMEN: Soft, nontender. NERVOUS SYSTEM: No focal deficits. LABS: WBC 5.9, hemoglobin 7.6. Yesterday hemoglobin was 11. Sodium 137, potassium 4.2, creatinine is 1.39. ASSESSMENT: 1. Acute severe GI bleed, who was on aspirin and Brilinta, EGD unremarkable. 2. Acute gastritis, possibly. 3. Acute blood-loss anemia from upper gastrointestinal bleed. 4. Diabetes mellitus type 2, oral hypoglycemics. 5. Hyperlipidemia. 6. Hypertension. 7. Mild cognitive impairment, possibly late onset dementia. 8. Seizure disorder. 9. History of right nephrectomy for malignancy. 10.Chronic kidney disease stage 2. 11.Hypertensive heart disease. 12.Diabetic peripheral neuropathy. 13.Benign prostatic hypertrophy. 14.Coronary artery disease, stent. 15.Acute renal failure possibly prerenal, improved. RECOMMENDATIONS AND DISCUSSION: Recommend to continue current management and symptomatic treatment. Repeat labs and PT/OT evaluation, possible ECF rehab. Further recommendations to follow. MMODL / IJN: [id number] /
[2019-03-09 17:12] LABS: Glucose,Whole Blood 118 mg/dL (75-99)
[2019-03-09 20:09] LABS: Glucose,Whole Blood 173 mg/dL (75-99)
[2019-03-09] MEDS: ATORVASTATIN 40 MG TAB PO SCH (21:37)
[2019-03-09 21:47] VITALS: RESP 16
[2019-03-10 06:13] VITALS: BP 153/78; PULSE 66; TEMP 97.9
[2019-03-10 07:06] LABS: Glucose,Whole Blood 143 mg/dL (75-99)
[2019-03-10 07:17] LABS: Basophils % (A) 0 %; Eosinophils # (A) 0.1 k/uL (0-0.7); Eosinophils % (A) 2 %; HCT 38.5 % (39.0-53.0); HGB 12.5 gm/dL (13.0-17.5); Lymphocytes # (A) 1.3 k/uL (1.0-4.8); Lymphocytes % (A) 24 %; MCHC 32.4 g/dL (31.0-37.0); MCV 89.7 fL (80.0-100.0); Mean Platelet Volume 6.9; Monocytes # (A) 0.4 k/uL (0-1.0); Monocytes % (A) 7 %; Neutrophils # (A) 3.5 k/uL (1.3-7.7); Neutrophils % (A) 64 %; Platelet Count 236 k/uL (150-450); RDW 15.8 % (11.5-15.5); WBC 5.4 k/uL (3.8-10.6)
[2019-03-10 07:24] LABS: Potassium 5.7 mmol/L (3.5-5.1)
[2019-03-10] MEDS: CHOLECALCIFEROL 1,000 UNIT TAB PO SCH (09:38)
[2019-03-10] MEDS: TAMSULOSIN 0.4 MG CAP.ER.24H PO SCH (09:38)
[2019-03-10] MEDS: CALCIUM CARB-VIT D 500MG-200UN 1 EACH TAB PO SCH (09:38)
[2019-03-10] MEDS: levETIRAcetam 500 MG TAB PO SCH (09:38)
[2019-03-10] MEDS: LACOSAMIDE 150 MG TABLET PO SCH (09:38)
[2019-03-10] MEDS: SODIUM BICARBONATE TAB 650 MG TAB PO SCH (09:38)
[2019-03-10] MEDS: ENOXAPARIN 40 MG/0.4 ML SYRINGE SQ SCH (09:39)
[2019-03-10] MEDS: INSULIN ASPART (NovoLOG) 100 UNIT/ML VIAL SQ SCH ×2 (09:39→12:42)
[2019-03-10] MEDS: ATENOLOL 25 MG TAB PO SCH (09:39)
[2019-03-10] MEDS: amLODIPine 5 MG TAB PO SCH (09:39)
[2019-03-10] MEDS: LISINOPRIL 20 MG TAB PO SCH (09:39)
[2019-03-10] MEDS: PANTOPRAZOLE 40 MG/10 ML VIAL IVP SCH (09:39)
[2019-03-10] MEDS: LINAGLIPTIN 5 MG TABLET PO SCH (09:40)
[2019-03-10] MEDS: PHENYTOIN SODIUM EXTENDED 100 MG CAP PO SCH (09:40)
[2019-03-10] MEDS: TOPIRAMATE 100 MG TAB PO SCH (09:41)
[2019-03-10 11:15] LABS: Glucose,Whole Blood 120 mg/dL (75-99)
[2019-03-10] MEDS ORDERED: SODIUM POLYSTYRENE SULFONATE 15 GM/60 ML BOTTLE PO STA (11:58)
[2019-03-10] MEDS ORDERED: amLODIPine 5 MG TAB PO STA (11:58)
[2019-03-10] MEDS ORDERED: SODIUM CHLORIDE 0.9% 1,000 ML IV SCH (12:00)
--- NOTE | 2019-03-10 14:58 | DS ---
DISCHARGE SUMMARY DATE OF ADMISSION: 03/03/2109 DATE OF DISCHARGE: 03/10/2919 FINAL DIAGNOSES: 1. Acute severe gastrointestinal bleed in a patient was on aspirin and Brilinta. EGD was unremarkable. 2. Acute gastritis. 3. Acute blood loss anemia from upper gastrointestinal bleed. 4. Diabetes mellitus type 2, now on oral hypoglycemic, Levemir has been discontinued. 5. Hyperlipidemia. 6. Essential hypertension. 7. Mild cognitive impairment, probably from late onset of Alzheimer's dementia. 8. Chronic seizure disorder. 9. 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 10.Chronic kidney disease stage II. 11.Hypertensive heart disease. 12.Diabetic peripheral neuropathy. 13.Benign prostatic hypertrophy. Mesa catheter has been discontinued. 14.Coronary artery disease with stent. 15.Acute renal failure probably prerenal. 16.Hyperkalemia from prerenal and patient being on SHELIA inhibitor. HOSPITAL COURSE: Patient presented with a multitude of symptoms, also had a Mesa catheter that was discontinued. Patient is put on Flomax, patient is making good urine. Patient's creatinine has gone up from 1, initially creatinine is 1.90 did come down to 1.15, then did go up to 1.5 as of today. Hence, SHELIA inhibitor has been discontinued. Patient's potassium today was 5.7, given a dose of Kayexalate. Also getting IV fluids. Patient also had a UTI where the cultures were negative, overall doing better. Patient had come in initially with a GI bleed and the patient did undergo EGD by Dr. Contreras. Patient did get some gastritis. Patient is tolerating his diet, up and about in the hallway with physical therapy. PHYSICAL EXAMINATION: Temperature 97.9, pulse 66, respirations 16, blood pressure 153/78, pulse ox 99 percent. LUNGS: Fair air entry. CARDIOVASCULAR: First and second sounds normal. Able to answer questions. INVESTIGATIONS: Hemoglobin 12.5, potassium 5.7, BUN 27, creatinine 1.51. CONSULTATION: Dr. Contreras from GI. DISCHARGE MEDICATIONS: 1. Tenormin 25 mg p.o. b.i.d. 2. Keppra 1000 mg p.o. q.12. 3. Aspirin 81 mg p.o. daily. 4. Lipitor 40 mg q.h.s. 5. Brilinta 90 mg p.o. b.i.d. 6. Os-[place] 550 one tablet p.o. daily. 7. Vitamin D3 one thousand units p.o. daily. 8. Vimpat 300 mg b.i.d. 9. Dilantin 200 mg p.o. b.i.d. 10.Topamax 100 mg p.o. b.i.d. 11.Januvia 100 mg p.o. daily. 12.Ceftin 500 mg p.o. b.i.d., 10 tablets. 13.NovoLog per scale. 14.Prilosec 20 mg b.i.d. 15.Sodium bicarb 650 mg p.o. t.i.d. 16.Flomax 0.4 mg p.o. b.i.d. 17.Norvasc 10 mg p.o. daily. 18.Glucotrol 2.5 mg p.o. with breakfast. 19.Discontinued medications include Atarax, lisinopril, Lantus, Bactrim, dose of Norvasc was changed. DISPOSITION: [facility]. FOLLOWUP: Follow up with Dr. Patton at [facility]. LABS: CBC, BMP in 24 hours. DISCUSSION: Coordination of discharge planning more than 35 minutes. MMODL / IJN: [id number] /
[2019-03-11] MEDS ORDERED: amLODIPine 10 MG TAB PO SCH (09:00)
== END 2019-03-10 16:26 | DRG 378 ==
LOC: EC 15:36 → 3NMEDONC 18:06 → OBSVTOIN 03-05 15:25
PROVIDERS: ADMIT Hospitalist; ATTEND Hospitalist
PROC: 0DJ08ZZ Inspection of Upper Intestinal Tract, Via Natural or Artificial Opening Endoscopic (ICD-10-PCS; principal; 2019-03-04 08:00)
DX: K29.01 Acute gastritis with bleeding (principal); D62 Acute posthemorrhagic anemia; N17.9 Acute kidney failure, unspecified; E11.22 Type 2 diabetes mellitus with diabetic chronic kidney disease; E11.42 Type 2 diabetes mellitus with diabetic polyneuropathy; E78.5 Hyperlipidemia, unspecified; E87.5 Hyperkalemia; F02.80 Dementia in other diseases classified elsewhere, unspecified severity, without behavioral disturbance, psychotic disturbance, mood disturbance, and anxiety; G30.1 Alzheimer's disease with late onset; G40.909 Epilepsy, unspecified, not intractable, without status epilepticus; I13.10 Hypertensive heart and chronic kidney disease without heart failure, with stage 1 through stage 4 chronic kidney disease, or unspecified chronic kidney disease; I25.10 Atherosclerotic heart disease of native coronary artery without angina pectoris; I25.2 Old myocardial infarction; Z86.73 Personal history of transient ischemic attack (TIA), and cerebral infarction without residual deficits; K22.2 Esophageal obstruction; N18.2 Chronic kidney disease, stage 2 (mild); N40.0 Benign prostatic hyperplasia without lower urinary tract symptoms; Z79.02 Long term (current) use of antithrombotics/antiplatelets; Z79.4 Long term (current) use of insulin; Z79.82 Long term (current) use of aspirin; Z79.899 Other long term (current) drug therapy; Z82.49 Family history of ischemic heart disease and other diseases of the circulatory system; Z82.5 Family history of asthma and other chronic lower respiratory diseases; Z85.528 Personal history of other malignant neoplasm of kidney; Z87.11 Personal history of peptic ulcer disease; Z87.891 Personal history of nicotine dependence; Z90.5 Acquired absence of kidney; Z92.21 Personal history of antineoplastic chemotherapy; Z95.5 Presence of coronary angioplasty implant and graft; Z82.3 Family history of stroke; F41.9 Anxiety disorder, unspecified; M54.5 Low back pain; M79.606 Pain in leg, unspecified; Z91.041 Radiographic dye allergy status
CPT/HCPCS: 36415; 43235; 80048; 80053; 81001; 82140; 82271; 83690; 83735; 84484; 85025; 85610; 85730; 86850; 86900; 86901; 87086; 96361; 96365; 96375; 99285

== ENCOUNTER → 2019-04-14 | Outpatient (CLI) | payer OTHER, MEDICARE ==
[2019-04-15 08:37] LABS: Levetiracetam (Keppra) 26.4 ug/mL (3.0-60.0)
== END | disposition home or self-care (01) ==
LOC: LABWHC1 09:31
PROVIDERS: ATTEND Psychiatry & Neurology Neurology
DX: R56.9 Unspecified convulsions (principal)
CPT/HCPCS: 36415; 80177; 80339

== ENCOUNTER → 2019-05-14 | Outpatient (CLI) | payer MEDICARE | END | disposition home or self-care (01) | LOC: LABWHC1 15:00 | PROVIDERS: ATTEND Psychiatry & Neurology Neurology | DX: R56.9 Unspecified convulsions (principal) | CPT/HCPCS: 36415; 80339 ==

== ENCOUNTER → 2019-05-21 | Outpatient (CLI) | payer MEDICARE, OTHER ==
--- NOTE | 2019-05-21 19:47 | CONS ---
CONSULTATION DATE OF SERVICE: 05/21/2019 78-year-old gentleman has been evaluated in Sleep Center for obstructive sleep apnea- hypopnea syndrome. HISTORY OF PRESENT ILLNESS/SLEEP WAKE EVALUATION: SLEEP SCHEDULE: Patient usually goes to bed around 10 and he wakes up at 6 in the morning and sometimes falling asleep again after that. FALLING ASLEEP: He has TV set in bedroom. DURING SLEEP: Sleeps on the side position. According to his he snores and has episodes of stopped breathing during the sleep. He wakes up with episodes of gasping for air. He wakes up from sleep 3 times with nocturia. DURING THE DAY/SLEEP WAKE EVALUATION: In the morning he wakes up tired. Having episodes of falling asleep during the day, has episodes of irritability and anxiety. He had often episodes of during the sleep time. [place] Sleepiness Scale significantly increased to 13. PAST MEDICAL HISTORY: Epilepsy with many episodes of during the sleep, hypertension, diabetes, coronary artery disease with history of heart attack, kidney CA, acid reflux. PAST SURGICAL HISTORY: Right nephrectomy for kidney CA with lymph nodes removed, 5 stents insertion. MEDICATIONS: Omeprazole, tamsulosin, amlodipine, glipizide, atenolol, atorvastatin, levetiracetam, Tradjenta, Humalog, Brilinta, sodium bicarb, vitamin D3, calcium supplement, aspirin. SOCIAL HISTORY: Quit smoking 49 years ago. Alcohol consumption none. FAMILY HISTORY: Hypertension, stroke, arthritis, asthma, emphysema, sleep apnea, snoring, mental illness, acid reflux. REVIEW OF SYSTEMS: Awakenings from sleep, sleepiness during the day episodes. PHYSICAL EXAM: gentleman without distress. BP 161/84, HR 78, RR 16, height 5 feet 4.5 inches, weight 178 pounds, body mass index 28.7, temperature 97.7, oxygen saturation at room air 98%. Oropharynx extremely low position of soft palate. Mallampati IV. Some restriction of nasal breathing. Wide neck, 17 inches in circumference. EXTREMITIES: 1+ bilateral ankle edema. IMPRESSION: 1. Snoring, awakenings from sleep with nocturia, extremely low position of soft palate, wide neck, sleepiness, obstructive sleep apnea-hypopnea syndrome. 2. Epilepsy with multiple episodes of surgery during the sleep time. 3. Hypertension. 4. Coronary artery disease, status post heart attack, status post 5 stent insertion. 5. History of right kidney carcinoma status post right nephrectomy and lymph nodes removed. 6. Acid reflux. PLAN: 1. Polysomnography for evaluation of patient's breathing during sleep. 2. CPAP/BiPAP titration if sleep study confirms obstructive sleep apnea-hypopnea syndrome. 3. Preferable position during sleep on the side. 4. No driving if patient feels any sleepiness. 5. I will see patient for follow up visit to explain results of testing and following plan. Tank you very much for referring this patient for consultation. Sincerely, Jeff Garrett MD, PhD, FAASM Diplomat of [employer] [employer] [employer] [facility] [place] MMODL / IJN: [id number] /
== END ==
LOC: SLEEP 14:31
PROVIDERS: ATTEND Internal Medicine
DX: G47.33 Obstructive sleep apnea (adult) (pediatric) (principal); G40.909 Epilepsy, unspecified, not intractable, without status epilepticus; I10 Essential (primary) hypertension; I25.10 Atherosclerotic heart disease of native coronary artery without angina pectoris; K21.9 Gastro-esophageal reflux disease without esophagitis; I25.2 Old myocardial infarction; Z95.5 Presence of coronary angioplasty implant and graft; Z85.528 Personal history of other malignant neoplasm of kidney; Z90.5 Acquired absence of kidney; Z87.891 Personal history of nicotine dependence; Z79.899 Other long term (current) drug therapy; Z79.82 Long term (current) use of aspirin; Z79.4 Long term (current) use of insulin
CPT/HCPCS: 99211

== ENCOUNTER 2019-07-10 23:13 | Emergency (ER) | payer OTHER, MEDICARE ==
[2019-07-10 23:28] VITALS: RESP 18; TEMP 97.7
[2019-07-11] MEDS ORDERED: ACETAMINOPHEN TAB 325 MG TAB PO STA (00:01)
--- NOTE | 2019-07-11 00:02 | ED ---
Extremity Problem HPI - General Chief complaint: Extremity Problem,Nontraumatic Stated complaint: Lft Arm Pain/Swelling Time Seen by Provider: 07/10/19 23:30 Source: patient Mode of arrival: ambulatory Limitations: no limitations - History of Present Illness Initial comments: 78-year-old male patient presents to the emergency department today for evaluat ion of left elbow discomfort and swelling. Patient states that he was watching television when he notices left elbow was uncomfortable. States he looked at it and noticed there is swelling. Denies any redness, fever, or chills. Denies any known injury. Patient states he does take a blood thinning medication and has been bruising easily. Denies any history of similar symptoms. Patient denies any headache, neck pain, back pain, chest pain, shortness of breath, dizziness, weakness, abdominal pain, nausea, vomiting, or difficulties with bowel movements or urination. - Related Data Home Medications Medication Instructions Recorded Confirmed Atenolol [Tenormin] 25 mg PO BID 06/23/15 07/10/19 levETIRAcetam [Keppra] 500 mg PO BID 02/20/18 07/10/19 Calcium Carb-Vit D 500Mg-200Un 1 tab PO DAILY 03/03/19 07/10/19 [Oscal 500+D] Cholecalciferol [Vitamin D3 (25 1,000 unit PO DAILY 03/03/19 07/10/19 Mcg = 1000 Iu)] Lacosamide [Vimpat] 150 mg PO BID 03/03/19 07/10/19 INSULIN ASPART (NovoLOG) [NovoLOG See Protocol SQ ACHS 07/10/19 07/10/19 (formulary)] Linagliptin [Tradjenta] 5 mg PO DAILY 07/10/19 07/10/19 glipiZIDE [Glucotrol] 5 mg PO AC-BRKFST 07/10/19 07/10/19 Previous Rx's Medication Instructions Recorded Aspirin 81 mg PO DAILY #30 chew 12/30/18 Atorvastatin [Lipitor] 40 mg PO HS #30 tab 12/30/18 Ticagrelor [Brilinta] 90 mg PO BID #60 tab 12/30/18 amLODIPine [Norvasc] 10 mg PO DAILY tab 03/10/19 Allergies Allergy/AdvReac Type Severity Reaction Status Date / Time Iodinated Contrast- Oral and AdvReac KIDNEY Verified 07/10/19 23:44 IV Dye Review of Systems ROS Statement: Those systems with pertinent positive or pertinent negative responses have been documented in the HPI. ROS Other: All systems not noted in ROS Statement are negative. Past Medical History Past Medical History: Chest Pain / Angina, Diabetes Mellitus, Hyperlipidemia, Hypertension, Memory Impairment, Seizure Disorder Additional Past Medical History / Comment(s): lives at [facility], Other HX: Post hernia repair-pt states he had brain bleed and was transferred from [facility] to [facility]-he had to learn to perform all ADLs again-also had seizures for a short time after the brain bleed but none since 2011. 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-tx with R nephrectomy and chemo in 2011 at [facility], Stage II chronic kidney disease, hypertensive cardiovascular disease with LVH, diabetic neuropathy with low back and L leg pain, BPH Last Myocardial Infarction Date:: 1999 History of Any Multi-Drug Resistant Organisms: None Reported Past Surgical History: Cholecystectomy, Heart Catheterization With Stent Additional Past Surgical History / Comment(s): Nephrectomy right Past Anesthesia/Blood Transfusion Reactions: No Reported Reaction Date of Last Stent Placement:: 2005 Past Psychological History: Anxiety Smoking Status: Former smoker Past Alcohol Use History: None Reported Past Drug Use History: None Reported - Past Family History Brother(s) Family Medical History: Myocardial Infarction (PR) Additional Family Medical History / Comment(s): at age 82 Father Family Medical History: Asthma, Coronary Artery Disease (CAD) Additional Family Medical History / Comment(s): at age 82 Mother Family Medical History: CVA/TIA Additional Family Medical History / Comment(s): CVA X 2. at age 61 General Exam Limitations: no limitations General appearance: alert, in no apparent distress, other (Physical well- developed, well-nourished elderly male patient in no acute distress. Vital signs upon presentation are temperature 97.7F, pulse 57, respirations 18, blood pressure 188/94, pulse ox 96% on room air.) Respiratory exam: Present: normal lung sounds bilaterally. Absent: respiratory distress, wheezes, rales, rhonchi, stridor Cardiovascular Exam: Present: regular rate, normal rhythm, normal heart sounds. Absent: systolic murmur, diastolic murmur, rubs, gallop, clicks Extremities exam: Present: full ROM, normal capillary refill, other (There is left elbow swelling. No tenderness. No redness or warmth. Full range of motion is intact. Skin to the left upper extremity is pink, warm, dry. Cap refills less than 3 seconds. Radial pulses 2+ and equal bilaterally.). Absent: normal inspection, tenderness, pedal edema, joint swelling, calf tenderness Neurological exam: Present: alert, oriented X3, CN II-XII intact Psychiatric exam: Present: normal affect, normal mood Skin exam: Present: warm, dry, intact, normal color. Absent: rash Course Vital Signs 07/10/19 07/11/19 23:26 00:08 Temperature 97.7 F Pulse Rate 57 L 56 L Respiratory 18 18 Rate Blood Pressure 188/94 157/72 O2 Sat by Pulse 96 96 Oximetry Medical Decision Making - Medical Decision Making 78-year-old male patient presented to the emergency department today for evaluation of swelling to the left elbow. Physical examination did reveal bursal swelling with no redness or warmth. He is afebrile. Has minimal pain. There is full range of motion. Did discuss bursitis as a cause for his symptoms. He was placed in an Natalio wrap. He is instructed take Tylenol for pain control. He is instructed to follow-up with branch operations specialist for recheck as soon as possible. Return parameters were discussed in detail. He verbalizes understanding and agrees with this plan. Disposition Clinical Impression: Bursitis of left elbow Disposition: HOME SELF-CARE Condition: Good Instructions (If sedation given, give patient instructions): Elbow Bursitis (ED) Additional Instructions: Use Natalio wrap for comfort and support. Take Tylenol as needed for pain control. Follow-up with branch operations specialist for recheck as soon as possible. Return to the emergency department immediately for any new, worsening, or concerning symptoms. Is patient prescribed a controlled substance at d/c from ED?: No Referrals: [facility],Clinic [Primary Care Provider] - 1-2 days Demetrio Montgomery DO [Medical Doctor] - 1-2 days Time of Disposition: 00:02
[2019-07-11 00:10] VITALS: BP 157/72; PULSE 56
== END 2019-07-11 00:12 | disposition home or self-care (01) ==
LOC: EC 23:13
DX: M70.32 Other bursitis of elbow, left elbow (principal); I13.10 Hypertensive heart and chronic kidney disease without heart failure, with stage 1 through stage 4 chronic kidney disease, or unspecified chronic kidney disease; E11.22 Type 2 diabetes mellitus with diabetic chronic kidney disease; N18.2 Chronic kidney disease, stage 2 (mild); E11.40 Type 2 diabetes mellitus with diabetic neuropathy, unspecified; G40.909 Epilepsy, unspecified, not intractable, without status epilepticus; I25.2 Old myocardial infarction; Z79.4 Long term (current) use of insulin; Z79.899 Other long term (current) drug therapy; Z91.041 Radiographic dye allergy status; Z87.891 Personal history of nicotine dependence; Z85.528 Personal history of other malignant neoplasm of kidney; Z90.5 Acquired absence of kidney; Z95.5 Presence of coronary angioplasty implant and graft
CPT/HCPCS: 99283

== ENCOUNTER → 2019-09-11 | Outpatient (CLI) | payer MEDICARE ==
--- NOTE | 2019-09-11 14:19 | SFUN ---
SLEEP CENTER FOLLOW UP NOTE DATE OF SERVICE: 09/11/2019 A 79-year-old gentleman who has been followed in the Sleep Center for treatment of obstructive sleep apnea-hypopnea syndrome. Recently patient had a polysomnogram which showed obstructive sleep apnea-hypopnea syndrome with apnea-hypopnea index 11.8 and lowest oxygen level 88.3%. Then patient had CPAP titration and subsequently received his CPAP unit. Today is his first visit after he received CPAP equipment. The patient has difficulties with the usage of CPAP equipment, mostly possibly related to the mask. He is using full-face mask and nasal mask. He never tried a nasal pillow mask. I checked his CPAP unit, it is on automatic regimen with a pressure of 5 to 9. He seems to keep pressure up at 8.9 cm of water. Leak is 11 L/minute. Apnea-hypopnea index 3.0, which is in normal range. Usage /30 nights and 05/25 nights more than 4 hours with average usage 3.4 hours per night. [place] Sleepiness Scale today is 1. MEDICATIONS: Omeprazole, tamsulosin, amlodipine, glipizide, atenolol, atorvastatin, levetiracetam, transient Humalog, Brilinta, sodium bicarb, vitamin D3, calcium supplement, aspirin. PHYSICAL EXAM: Patient in no distress, BP 166/77, HR 62, RR 16, weight 171 pounds, temperature 98.1. Oxygen saturation at room air 97%. OROPHARYNX: Low position of soft palate. Mallampati 4. \Neck Supple, no JVD. Thyroid is not palpable. LUNGS Clear to percussion and to auscultation. Good air exchange. No wheezing or rhonchi. HEART S1, S2 regular. No murmurs, gallops, or rubs. ABDOMEN Soft and nontender. Bowel sounds are present. No organomegaly appreciated. EXTREMITIES No clubbing or cyanosis. JUNIOR ENGINEER Awake, alert, and oriented X3. Cranial nerves 2 to 7 intact. There is no fasciculation or atrophy. noted. No focal deficits observed. IMPRESSION: 1. Mild obstructive sleep apnea-hypopnea syndrome. Patient started to use CPAP equipment, but has difficulties with the mask and usage of the machine, does not feel that quality of his sleep is better on CPAP then without CPAP. 2. Hypertension. 3. Coronary artery disease, status post heart attack and 5 stent insertions. 4. History of epilepsy. 5. Mild periodic limb movements during titration. 6. Status post right nephrectomy and lymph nodes removed for right kidney carcinoma. 7. Acid reflux. 8. Diabetes. PLAN: 1. We will try different style of mask. I would consider Air Fit P10 nasal pillow mask. 2. Patient will try to continue to use CPAP equipment every night. 3. Sleep hygiene with regular time in bed for at least 7-1/2 hours. 4. Precautions related to driving. No driving if feeling sleepiness. Thank you very much for allowing me to participate in the management of your patient. Sincerely, Jeff Garrett MD, PhD, FAASM Diplomat of [employer] [facility] [place] MMODL / IJN: [id number] /
== END ==
LOC: SLEEP 13:15
PROVIDERS: ATTEND Internal Medicine
DX: G47.33 Obstructive sleep apnea (adult) (pediatric) (principal); I10 Essential (primary) hypertension; I25.10 Atherosclerotic heart disease of native coronary artery without angina pectoris; K21.9 Gastro-esophageal reflux disease without esophagitis; E11.9 Type 2 diabetes mellitus without complications; Z95.5 Presence of coronary angioplasty implant and graft; Z86.69 Personal history of other diseases of the nervous system and sense organs; Z98.890 Other specified postprocedural states; Z99.89 Dependence on other enabling machines and devices; Z79.899 Other long term (current) drug therapy; Z79.82 Long term (current) use of aspirin

== ENCOUNTER 2019-11-08 09:47 | Emergency (ER) | payer OTHER, MEDICARE ==
[2019-11-08] MEDS ORDERED: LIDOCAINE 5% PATCH TOPICAL STA (10:36)
[2019-11-08] MEDS ORDERED: KETOROLAC 30 MG/ML 1 ML VIAL IM STA (10:38)
--- NOTE | 2019-11-08 10:40 | ED ---
General Adult HPI - General Chief complaint: Chest Pain Stated complaint: Aching pain in chest Time Seen by Provider: 11/08/19 09:58 Source: patient Mode of arrival: wheelchair Limitations: no limitations - History of Present Illness Initial comments: Dictation was produced using tic dictation software. please excuse any grammatical, word or spelling errors. Chief Complaint: 79-year-old male presents with right anterior chest and right shoulder pain. History of Present Illness: he is a 79-year-old male patient reports that he's been having intermittent chest pain for the last 4 days. Patient states his pain is worse especially in the middle of the night when he is on CPAP machine. Patient also reports some intermittent symptoms when swallowing. States that the pain as sharp and reproducible with palpation to the right anterior chest right shoulder area. Patient denies any coughing. No fever, chills or night sweats. Patient is an avid bowler . Last Sunday. Patient states he has no issues on bowling. Patient has any symptoms at this time. As any radiation of symptoms. No associated diaphoresis. The ROS documented in this emergency department record has been reviewed and confirmed by me. Those systems with pertinent positive or negative responses have been documented in the HPI. All other systems are other negative and/or noncontributory. PHYSICAL EXAM: General Impression: Alert and oriented x3, not in acute distress HEENT: Normocephalic atraumatic, extra-ocular movements intact, pupils equal and reactive to light bilaterally, mucous membranes moist. Cardiovascular: Heart regular rate and rhythm, S1&S2 audible, no murmurs, rubs or gallops Chest: Lungs clear to auscultation bilaterally, no rhonchi, no wheeze, no rales, tenderness to palpation of the right anterior chest over the back muscles on the right shoulder joint ranged with no complications Abdomen: Bowel sounds present, abdomen soft, non-tender, non-distended, no organomegaly Musculoskeletal: Pulses present and equal in all extremities, no peripheral edema Motor: no focal deficits noted Neurological: CN II-XII grossly intact, no focal motor or sensory deficits noted Skin: Intact with no visualized rashes Psych: Normal affect and mood ED course: 79 y Old male presents with atypical chest pain. As upon arrival are within acceptable limits. Return evaluation obtained. Metabolic panel shows creatinine 1.52 with BUN of 29. Patient's low GFR not candidate for contrast. X-ray was obtained showing i ncreasing paratracheal soft tissues. Cranial radiology he requested CT angios the chest to exclude descending thoracic aneurysm. Shoulder x-ray shows evidence of rotator cuff disease and impingement. Computed tomography scan of the chest was obtained showing worsening mediastinal adenopathy. Discussed images study with Dr. Tavares was not concerned about thoracic aneurysm. Patient observed in emergency department found to be stable medical condition. Patient allowed him patch and Toradol and reports improvement of his symptoms. Given clinical presentation a chin symptoms are likely secondary muscle skeletal strain. Discussed with patient that he has paratracheal adenopathy. He is unaware of this however this was seen on previous imaging study. He is told to follow-up with his primary care physician regarding this and for outpatient follow-up of his chest/shoulder pain. All questions answered. Return parameters discussed. EKG interpretation: Ventricular rate 55, sinus bradycardia,, KY interval 208, QS 98, QTc 43. No KY prolongation, no QTC prolongation, no ST or T-wave changes noted. . Overall, this EKG is unremarkable - Related Data Home Medications Medication Instructions Recorded Confirmed Atenolol [Tenormin] 25 mg PO BID 06/23/15 07/10/19 levETIRAcetam [Keppra] 500 mg PO BID 02/20/18 07/10/19 Calcium Carb-Vit D 500Mg-200Un 1 tab PO DAILY 03/03/19 07/10/19 [Oscal 500+D] Cholecalciferol [Vitamin D3 (25 1,000 unit PO DAILY 03/03/19 07/10/19 Mcg = 1000 Iu)] Lacosamide [Vimpat] 150 mg PO BID 03/03/19 07/10/19 INSULIN ASPART (NovoLOG) [NovoLOG See Protocol SQ ACHS 07/10/19 07/10/19 (formulary)] Linagliptin [Tradjenta] 5 mg PO DAILY 07/10/19 07/10/19 glipiZIDE [Glucotrol] 5 mg PO AC-BRKFST 07/10/19 07/10/19 Previous Rx's Medication Instructions Recorded Aspirin 81 mg PO DAILY #30 chew 12/30/18 Atorvastatin [Lipitor] 40 mg PO HS #30 tab 12/30/18 Ticagrelor [Brilinta] 90 mg PO BID #60 tab 12/30/18 amLODIPine [Norvasc] 10 mg PO DAILY tab 03/10/19 HYDROcodone/APAP 5-325MG [Eldred 1 tab PO Q6HR PRN 3 Days #12 tab 11/08/19 5-325] Allergies Allergy/AdvReac Type Severity Reaction Status Date / Time Iodinated Contrast Media AdvReac KIDNEY Verified 11/08/19 11:56 [Iodinated Contrast- Oral and IV Dye] Review of Systems ROS Statement: Those systems with pertinent positive or pertinent negative responses have been documented in the HPI. ROS Other: All systems not noted in ROS Statement are negative. Past Medical History Past Medical History: Chest Pain / Angina, Diabetes Mellitus, Hyperlipidemia, Hypertension, Memory Impairment, Seizure Disorder Additional Past Medical History / Comment(s): lives at [facility], Other HX: Post hernia repair-pt states he had brain bleed and was transferred from [facility] to [facility]-he had to learn to perform all ADLs again-also had seizures for a short time after the brain bleed but none since 2011. 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-tx with R nephrectomy and chemo in 2011 at [facility] in [place], Stage II chronic kidney disease, hypertensive cardiovascular disease with LVH, diabetic neuropathy with low back and L leg pain, BPH Last Myocardial Infarction Date:: 1999 History of Any Multi-Drug Resistant Organisms: None Reported Past Surgical History: Cholecystectomy, Heart Catheterization With Stent Additional Past Surgical History / Comment(s): Nephrectomy right Past Anesthesia/Blood Transfusion Reactions: No Reported Reaction Date of Last Stent Placement:: 2005 Past Psychological History: Anxiety Smoking Status: Former smoker Past Alcohol Use History: None Reported Past Drug Use History: None Reported - Past Family History Brother(s) Family Medical History: Myocardial Infarction ([place]) Additional Family Medical History / Comment(s): at age 82 Father Family Medical History: Asthma, Coronary Artery Disease (CAD) Additional Family Medical History / Comment(s): at age 82 Mother Family Medical History: CVA/TIA Additional Family Medical History / Comment(s): CVA X 2. at age 61 General Exam Limitations: no limitations Course Vital Signs 11/08/19 11/08/19 10:03 11:23 Temperature 98.3 F Pulse Rate 70 55 L Respiratory 16 18 Rate Blood Pressure 148/87 139/77 O2 Sat by Pulse 98 97 Oximetry Medical Decision Making - Lab Data Result diagrams: 11/08/19 11:20 Lab Results 11/08/19 Range/Units 11:20 Sodium 140 (137-145) mmol/L Potassium 4.5 (3.5-5.1) mmol/L Chloride 109 H (98-107) mmol/L Carbon Dioxide 20 L (22-30) mmol/L Anion Gap 11 mmol/L BUN 29 H (9-20) mg/dL Creatinine 1.52 H (0.66-1.25) mg/dL Est GFR (CKD-EPI)AfAm 50 (>60 ml/min/1.73 sqM) Est GFR (CKD-EPI)NonAf 44 (>60 ml/min/1.73 sqM) Glucose 142 H (74-99) mg/dL Calcium 9.5 (8.4-10.2) mg/dL Disposition Clinical Impression: Chest pain Disposition: HOME SELF-CARE Condition: Good Instructions (If sedation given, give patient instructions): Chest Pain (ED) Prescriptions: HYDROcodone/APAP 5-325MG [Eldred 5-325] 1 tab PO Q6HR PRN 3 Days #12 tab PRN Reason: Severe Pain Is patient prescribed a controlled substance at d/c from ED?: No Referrals: [facility],Clinic [Primary Care Provider] - 1-2 days Time of Disposition: 13:44
[2019-11-08] MEDS ORDERED: KETOROLAC 30 MG/ML 1 ML VIAL IVP STA (11:16)
--- NOTE | 2019-11-08 11:29 | XR ---
EXAMINATION TYPE: XR chest 2V DATE OF EXAM: 11/08/2019 HISTORY: chest pain. REFERENCE: Previous study dated 02/14/2019. FINDINGS: There is some scarring at the left lung base. Lungs are otherwise clear. Pleural spaces are clear. The heart is mildly enlarged. Note is made of prominent soft tissues in the right paratrachea l region. This may represent ectasia of the great vessels. It has, however, increased from the previo us study. IMPRESSION: PROMINENCE OF RIGHT PARATRACHEAL SOFT TISSUES WHICH HAS PROGRESSED FROM PREVIOUS. CTA OF THE CHEST WO ULD BE SUGGESTED TO EXCLUDE AN ASCENDING THORACIC AORTIC ANEURYSM.
--- NOTE | 2019-11-08 11:30 | XR ---
EXAMINATION TYPE: XR shoulder complete RT , 3 VIEWS DATE OF EXAM ORDERED: 11/08/2019 HISTORY: pain. COMPARISON: None. FINDINGS: There are hypertrophic changes in the right AC joint. There is decentering of the humerus within the glenohumeral joint. There are stenosis in the humeral head, an indirect sign of impingemen t. There is remodeling changes in the glenohumeral joint. No fracture, dislocation or other acute oss eous lesion is seen. IMPRESSION: 1. NO ACUTE OSSEOUS LESION. 2. EVIDENCE OF ROTATOR CUFF DISEASE AND IMPINGEMENT. 3. DEGENERATIVE CHANGE IN THE RIGHT AC JOINT.
[2019-11-08] MEDS ORDERED: diphenhydrAMINE 50 MG/ML 1 ML VIAL IVP STA (11:41)
[2019-11-08] MEDS ORDERED: methylPREDNISolone SOD SUCCI 125 MG/2 ML VIAL IV STA (11:41)
[2019-11-08] MEDS ORDERED: FAMOTIDINE 20 MG/2 ML VIAL IV STA (11:42)
[2019-11-08 12:00] LABS: Calcium 9.5 mg/dL (8.4-10.2); Potassium 4.5 mmol/L (3.5-5.1)
--- NOTE | 2019-11-08 13:08 | CT ---
EXAMINATION TYPE: CT chest wo con DATE OF EXAM: 11/08/2019 COMPARISON: Previous study dated 04/26/2017 HISTORY: Rt upper chest pain CT DLP: 377.3 mGycm. Automated Exposure Control for Dose Reduction was Utilized. TECHNIQUE: CT scan of the thorax is performed without IV contrast. FINDINGS: There is some atelectatic change present at the lung bases. There is no significant axillary adenopathy. There is mediastinal adenopathy. Previously measured rig ht paratracheal lymph node mass measuring 4.9 x 3.5 cm previously and now measures 3.6 x 4.6 cm. Lymp h node mass just posterior to this measured 4.8 x 3.4 cm. There is no pleural or pericardial fluid. The heart is not enlarged. There is extensive coronary garcia ry calcification. Within the abdomen, the gallbladder is been removed. There is a simple appearing, enlarging left pavan l cyst which previously measured 4.6 cm and today measures 6.4 cm. Right kidney is not visualized. Vi sualized portions of the upper abdomen are otherwise unremarkable. There is hypertrophic change in the lower portion of the cervical spine as well as within the lower d orsal spine and upper lumbar spines. IMPRESSION: 1. WORSENING MEDIASTINAL ADENOPATHY. 2. SIMPLE APPEARING, ENLARGING LEFT RENAL CYST. 3. EXTENSIVE CORONARY ARTERY CALCIFICATIONS.
[2019-11-08 14:00] VITALS: BP 136/72; PULSE 50; RESP 19; TEMP 98.6
== END 2019-11-08 14:02 | disposition home or self-care (01) ==
LOC: EC 09:47
DX: R07.89 Other chest pain (principal); M25.811 Other specified joint disorders, right shoulder; M25.511 Pain in right shoulder; N18.2 Chronic kidney disease, stage 2 (mild); E11.22 Type 2 diabetes mellitus with diabetic chronic kidney disease; E11.40 Type 2 diabetes mellitus with diabetic neuropathy, unspecified; I13.10 Hypertensive heart and chronic kidney disease without heart failure, with stage 1 through stage 4 chronic kidney disease, or unspecified chronic kidney disease; G40.909 Epilepsy, unspecified, not intractable, without status epilepticus; I25.2 Old myocardial infarction; Z87.891 Personal history of nicotine dependence; Z91.041 Radiographic dye allergy status; Z79.4 Long term (current) use of insulin; Z79.899 Other long term (current) drug therapy; Z85.528 Personal history of other malignant neoplasm of kidney; Z92.21 Personal history of antineoplastic chemotherapy; Z95.5 Presence of coronary angioplasty implant and graft; Z90.5 Acquired absence of kidney; Z99.89 Dependence on other enabling machines and devices; Z82.49 Family history of ischemic heart disease and other diseases of the circulatory system; Z53.8 Procedure and treatment not carried out for other reasons
CPT/HCPCS: 36415; 93005; 80048; 73030; 71046; 71250; 99285; 96374; J1885